=== PATIENT | female | born 1965 | race Caucasian/White ===

== ENCOUNTER 2024-11-04 07:37 | Inpatient (IN) ==
--- NOTE | 2024-11-04 08:07 | Emergency Department Note ---
Impression & Plan Alcohol abuse, Recurrent falls, Rhabdomyolysis, Hyponatremia, Hypokalemia, Hypophosphatemia, Esophagitis ED Provider Note NAME: DEVAN HANNAH AGE: 59 SEX: F : 1965 ARRIVES VIA: Ambulance INFORMANT: Patient ED PROVIDER(S): Kali Recio MD CHIEF COMPLAINT: Recurrent falls, alcoholism PLAN: Disposition: Admit MEDICAL DECISION MAKING: The patient is a 59-year-old woman with a past medical history of alcohol abuse/dependence, hypothyroidism, anxiety/depression who presents to emergency department via EMS for evaluation of recurrent falls and generalized weakness with symptoms of nausea and vomiting over the past week. The patient reports she fell last night and was able to get herself up off the ground and waited to the morning to see if her mother could take her to the hospital but given that this was not available she contacted EMS. Patient admits to having recurrent falls recently. She reports she noticed bruising around her left eye yesterday morning but does not recall exactly what happened. She is not on anticoagulation. She does admit to drinking alcohol daily and reports that it is approximately 5 beers a day. She denies any recent fevers, chills, cough, congestion. She denies diarrhea. She denies urinary symptoms. On evaluation patient no acute distress, afebrile with heart in the 100s and blood pressure 150s/90s and vital signs otherwise stable. She appears clinically dry. She exhibits no focal neurologic deficits. There is no overt symptoms of withdrawal/no tremulousness. She has bruising/ecchymosis diffusely with left periorbital contusion/hematoma without ocular involvement. She has extraocular muscles intact without difficulty. Pupils are equal, round and reactive to light. Ecchymosis is present of bilateral upper and lower legs as well as lower back and thoracic region. There is no midline CTL spine tenderness to palpation or step-offs. She moves all extremities equally without discomfort or difficulty. EKG without overt acute ischemia. CXR negative for acute cardiopulmonary process per my personal preliminary review/interpretation. WBC 11.6 K with neutrophilia but no left shift. H/H 11.7/32.3 decreased from March 2024. Platelets 129K, slightly decreased from prior range. Chemistry without metabolic acidosis. Sodium is 121 with normal glucose likely related to patient's alcoholism and poor solute intake and increased free water intake. Phosphorus 1.7 and potassium 3.3. LFTs are elevated from prior with total bili 1.8, direct bilirubin 0.5 and AST and ALT 241 and 160, respectively. Alk phos is 201. CPK is 4500. High-sensitivity troponin 9.8, within normal limits. Lipase is not significantly elevated. UA with 4+ bacteria however no WBCs or nitrites. Medical alcohol was 218. Respiratory BioFire was negative. CT of the head, face, C-spine, chest and abdomen/pelvis were obtained. No acute fractures are identified. Age indeterminant right TP fracture of L2 is noted however likely chronic given no point tenderness. Distal esophageal wall thickening is suggestive of esophagitis Treatment was initiated with IV hydration with normal saline and IV thiamine. Patient agrees with plan for admission for further management. Case was discussed with Mell SONG with Dr. Arriaga [facility], who will evaluate the patient for admission. Further management per admitting team. Triage Nursing notes reviewed and agree them. Prior/external medical records reviewed Vital Signs: reviewed Differential diagnosis: Infection, dehydration, metabolic abnormality, hypo/hyperglycemia, electrolyte disturbance, anemia, hypoxia, cardiac sources, intracerebral event, toxicologic, neurologic, as well as other pathologies. ER treatment provided: See below. Diagnostics interpreted by me: ECG: Normal sinus rhythm, 95 bpm, LVH, no overt ST elevation or depression, QTc 492, QRS 82. Cardiac Monitoring: An order for continuous cardiac monitoring was placed and demonstrated normal sinus rhythm, 95 bpm, no ectopy. Laboratory studies: See below Imaging studies: See below Consultation(s): Case was discussed with Mell SONG with Dr. Arriaga, [facility], who will evaluate the patient for admission. HPI: The patient is a 59-year-old woman with a past medical history of alcohol abuse/dependence, hypothyroidism, anxiety/depression who presents to emergency department via EMS for evaluation of recurrent falls and generalized weakness with symptoms of nausea and vomiting over the past week. The patient reports she fell last night and was able to get herself up off the ground and waited to the morning to see if her mother could take her to the hospital but given that this was not available she contacted EMS. Patient admits to having recurrent falls recently. She reports she noticed bruising around her left eye yesterday morning but does not recall exactly what happened. She is not on anticoagulation. She does admit to drinking alcohol daily and reports that it is approximately 5 beers a day. She denies any recent fevers, chills, cough, congestion. She denies diarrhea. She denies urinary symptoms. ROS: See above HPI for pertinent positives & negatives. A total of 10 systems reviewed and were otherwise negative. VITALS:See Below PHYSICAL EXAMINATION: GENERAL: Awake, alert, in no distress HENT: Normocephalic, left periorbital contusion/hematoma without ocular involvement. Oropharynx unremarkable. EYES: Normal conjunctiva. Sclera non-icteric. EOMI. No nystamgus. PEARRL. NECK: Supple. No nuchal rigidity. FROM. No JVD. RESPIRATORY: Clear to auscultation. CARDIAC: Tachycardic rate, normal rhythm. Extremities warm and well perfused. Pulses equal. ABDOMEN: Soft, non-distended. No tenderness to palpation. No rebound or guarding. No masses. MUSCULOSKELETAL: Chest examination reveals no tenderness. The back is symmetrical on inspection without obvious abnormality. No CVA tenderness to palpation. Ecchymosis is present of bilateral upper and lower legs as well as lower back and thoracic region. There is no midline CTL spine tenderness to palpation or step-offs. She moves all extremities equally without discomfort or difficulty. No joint edema. LOWER EXTREMITIES: Calves are equal size bilaterally and non-tender. No edema. NEURO: No overt symptoms of withdrawal/no tremulousness. CNII-XII grossly intact. 5/5 strength and SILT x 4 extremities. Intact finger to nose. SKIN: No jaundice noted. Bruising/ecchymosis diffusely ED COURSE: Critical Care: I have personally spent greater than 35 minutes of critical care time in the direct management of this patient. This includes bedside care, interpretation of diagnostic studies, and testing, discussion with consultants, patient, and family members, and other required patient management activities. This 35 minutes is in excess of all separately billable procedures. Kali Recio MD Past Med/Surg History Problem List (Updated 11/04/24 @ 21:33 by Kali Recio MD) Chest pain Bruising Lymph node enlargement Esophagitis (Acute) Hypophosphatemia (Acute) Hypokalemia (Acute) Hyponatremia (Acute) Rhabdomyolysis (Acute) Recurrent falls (Acute) Alcohol abuse (Acute) Fall (Acute) Medical History Hypothyroidism HTN (hypertension) Endometrial cancer Depression Anxiety Surgical History History of cholecystectomy History of hysterectomy Social History Smoking Status: Never smoker Tobacco Type: Cigarettes Hx Alcohol Use: Yes Preferred Language: Czech marital status: Feels Safe at Home: Yes Allergies Allergies Allergy/AdvReac Type Severity Reaction Status Date / Time No Known Allergies Allergy Verified 11/04/24 11:21 Home Meds Home Medications Medication Instructions Recorded Confirmed bupropion HCl 300 mg 24 hr tablet, 300 mg PO QAM 11/04/24 11/04/24 extended release gabapentin 300 mg capsule 300 mg PO HS 11/04/24 11/04/24 hydroxyzine pamoate 50 mg capsule 50 mg PO TID PRN Anxiety 11/04/24 11/04/24 lamotrigine 25 mg tablet 50 mg PO DAILY 11/04/24 11/04/24 levothyroxine 125 mcg tablet 125 mcg PO DAILY 11/04/24 11/04/24 lisinopril 5 mg tablet 5 mg PO DAILY 11/04/24 11/04/24 propranolol 10 mg tablet 10 mg PO DAILY PRN general anxiety 11/04/24 11/04/24 disorder venlafaxine 150 mg 150 mg PO DAILY 11/04/24 11/04/24 capsule,extended release 24 hr venlafaxine 75 mg capsule,extended 75 mg PO DAILY 11/04/24 11/04/24 release 24 hr Previous Rx's Medication Instructions Recorded trazodone 50 mg tablet 50 mg PO DAILY PRN insomnia #7 tabs 04/02/24 Results & Data (ED) Vital Signs Vital Signs - 24 hr 11/04/24 07:43 11/04/24 07:43 11/04/24 07:56 Temperature 36.7 C Temperature Source Oral Pulse Rate 93 H 95 H Pulse Rate [Apical] Respiratory Rate 24 Respiratory Effort / Characteristics Non-Labored Spontaneous Respiratory Depth Normal Blood Pressure 158/91 H Blood Pressure [Left Arm] Blood Pressure Mean 113 Blood Pressure Mean [Left Arm] Blood Pressure Position Semi-fowlers Blood Pressure Position [Left Arm] Pulse Oximetry 99 99 Oxygen Delivery Method Room Air Room Air Sepsis Recent Fever Within 48 Hours No Sepsis New/Unexplained Change in Mental Status N/A Sepsis Action Taken by Nursing No Action Required 11/04/24 08:09 11/04/24 09:22 Temperature Temperature Source Pulse Rate 97 H Pulse Rate [Apical] 97 H Respiratory Rate 16 Respiratory Effort / Characteristics Respiratory Depth Blood Pressure Blood Pressure [Left Arm] 120/72 Blood Pressure Mean Blood Pressure Mean [Left Arm] 88 Blood Pressure Position Blood Pressure Position [Left Arm] Semi-fowlers Pulse Oximetry 98 100 Oxygen Delivery Method Room Air Room Air Sepsis Recent Fever Within 48 Hours Sepsis New/Unexplained Change in Mental Status Sepsis Action Taken by Nursing Laboratory Data Attestation: I reviewed the patient's lab results. 11/04/24 07:56 11/04/24 17:47 Lab Results 11/04/24 11/04/24 11/04/24 Range/Units 07:56 08:04 08:15 WBC 11.60 H (4.8-10.8) K/ul RBC 3.75 L (4.20-5.40) M/uL Hgb 11.7 L (12.0-16.0) g/dl POC Hgb 12.2 (12.0-16.0) g/dl Hct 32.3 L (37.0-47.0) % POC Hct 36 L (37-47) % MCV 86.1 (80.0-100.0) fL MCH 31.2 (25.0-34.0) pg MCHC 36.2 H (32.0-36.0) g/dL RDW Std Deviation 38.5 (36.4-46.3) fL RDW Coeff of Deepak 12.4 (11.5-14.5) % Plt Count 129 L (130-400) K/uL MPV 10.7 (9.4-12.4) fL Immature Gran % (Auto) 1.0 % Neut % (Auto) 83.2 % Lymph % (Auto) 4.7 % [place] % (Auto) 11.0 % Eos % (Auto) 0.0 % Baso % (Auto) 0.1 % Neut # (Auto) 9.65 H (1.40-6.50) K/uL Lymph # (Auto) 0.54 L (1.20-3.40) K/uL [place] # (Auto) 1.28 H (0.11-0.59) K/uL Eos # (Auto) 0.00 (0.00-0.50) K/uL Baso # (Auto) 0.01 (0.00-0.20) K/uL Immature Gran # (Auto) 0.12 (0.01-0.20) K/uL PT 10.0 (9.0-12.0) Seconds INR 0.9 (0.9-1.1) APTT 28 (21-31) Seconds PTT Ratio 1.0 POC Sodium 119 L* (135-144) mmol/L Sodium 121 L (136-145) mmol/L POC Potassium 3.3 (3.3-5.0) mmol/L Potassium 3.3 L (3.5-5.1) mmol/L POC Chloride 84 L (101-112) mmol/L Chloride 83 L (98-107) mmol/L Carbon Dioxide 25 (21-32) mmol/L POC Total CO2 20 L (24-31) mmol/L Anion Gap 13 H (3-11) POC Anion Gap 19.0 (16-25) mmol/L POC BUN 10 (7-18) mg/dl BUN 11 (6-23) mg/dl Creatinine 0.63 (0.6-1.2) mg/dl POC Creatinine 1.1 (0.6-1.3) mg/dl Est Cr Clr Drug Dosing 97.6 ml/min eGFR 100.86 BUN/Creatinine Ratio 17.5 (10-20) Glucose 99 (70-99(Fasting)) mg/dl POC Glucose (other) 103 H (70-99) mg/dl Osmolality 306 H (280-300) mOsm/kg Calcium 9.2 (8.6-10.3) mg/dl POC Ioniz Calcium Laurent 1.01 L (1.12-1.32) mmol/l Phosphorus 1.7 L (2.5-4.9) mg/dl Magnesium 2.5 H (1.7-2.4) mg/dl Total Bilirubin 1.8 H (0.2-1.0) mg/dl Direct Bilirubin 0.5 H (0-0.2) mg/dl AST 241 H (13-39) U/L ALT 168 H (7-52) U/L Alkaline Phosphatase 201 H (34-104) U/L Total Creatine Kinase 4570 H (26-192) U/L Troponin I High Sens 9.8 (0-14) pg/ml Total Protein 7.9 (6.0-8.3) gm/dl Albumin 4.4 (3.4-5.0) gm/dl Globulin 3.5 (2.5-4.0) gm/dl Albumin/Globulin Ratio 1.3 (0.9-2) Lipase 96 H (11-82) U/L Urine Color Urine Appearance (Clear) Urine pH (4.5-7.5) Ur Specific [place] (1.000-1.030) Urine Protein (Negative) Urine Glucose (UA) (Negative) Urine Ketones (Negative) Urine Blood (Negative) Urine Nitrite (Negative) Urine Bilirubin (Negative) Urine Urobilinogen (Negative) Ur Leukocyte Esterase (Negative) Urine WBC (Auto) (0-5) /hpf Urine RBC (Auto) (0-2) /hpf U Hyaline Cast (Auto) (0-2) /lpf U Epithel Cells (Auto) (0-2) /hpf Urine Bacteria (Auto) (None Seen) Urine Osmolality (500-800) mOsm/kg Ur Random Sodium mmol/L Urine Opiates Screen (Neg) Ur Methadone, Qual (Neg) Urine Fentanyl Screen (Neg) Urine Barbiturates (Neg) Ur Phencyclidine (PCP) (Neg) U Amphetamin/Meth Scrn (Neg) MDMA (Ecstasy) Screen (Neg) U Benzodiazepines Scrn (Neg) Ur Cocaine Metabolite (Neg) U Marijuana (THC) Screen (Neg) Ethyl Alcohol mg/dL 218.7 H (<10.0) mg/dl Adenovirus (PCR) Not Detected (NotDetected) B. pertussis DNA (PCR) Not Detected (NotDetected) B.parapertussis DNA PCR Not Detected (NotDetected) C. pneumoniae DNA (PCR) Not Detected (NotDetected) Coronavirus OC43 (PCR) Not Detected (NotDetected) Coronavirus HKU1 (PCR) Not Detected (NotDetected) Coronavirus 229E (PCR) Not Detected (NotDetected) SARS-CoV-2 (PCR) Not Detected (NotDetected) Coronavirus NL63 (PCR) Not Detected (NotDetected) Human Metapneumovir PCR Not Detected (NotDetected) Influenza Type A (PCR) Not Detected (NotDetected) Influenza Type B (PCR) Not Detected (NotDetected) M. pneumoniae (PCR) Not Detected (NotDetected) Parainfluenza 1 (PCR) Not Detected (NotDetected) Parainfluenza 2 (PCR) Not Detected (NotDetected) Parainfluenza 3 (PCR) Not Detected (NotDetected) Parainfluenza 4 (PCR) Not Detected (NotDetected) RSV (PCR) Not Detected (NotDetected) Entero/Rhino (PCR) Not Detected (NotDetected) 11/04/24 Range/Units 09:19 WBC (4.8-10.8) K/ul RBC (4.20-5.40) M/uL Hgb (12.0-16.0) g/dl POC Hgb (12.0-16.0) g/dl Hct (37.0-47.0) % POC Hct (37-47) % MCV (80.0-100.0) fL MCH (25.0-34.0) pg MCHC (32.0-36.0) g/dL RDW Std Deviation (36.4-46.3) fL RDW Coeff of Deepak (11.5-14.5) % Plt Count (130-400) K/uL MPV (9.4-12.4) fL Immature Gran % (Auto) % Neut % (Auto) % Lymph % (Auto) % [place] % (Auto) % Eos % (Auto) % Baso % (Auto) % Neut # (Auto) (1.40-6.50) K/uL Lymph # (Auto) (1.20-3.40) K/uL [place] # (Auto) (0.11-0.59) K/uL Eos # (Auto) (0.00-0.50) K/uL Baso # (Auto) (0.00-0.20) K/uL Immature Gran # (Auto) (0.01-0.20) K/uL PT (9.0-12.0) Seconds INR (0.9-1.1) APTT (21-31) Seconds PTT Ratio POC Sodium (135-144) mmol/L Sodium (136-145) mmol/L POC Potassium (3.3-5.0) mmol/L Potassium (3.5-5.1) mmol/L POC Chloride (101-112) mmol/L Chloride (98-107) mmol/L Carbon Dioxide (21-32) mmol/L POC Total CO2 (24-31) mmol/L Anion Gap (3-11) POC Anion Gap (16-25) mmol/L POC BUN (7-18) mg/dl BUN (6-23) mg/dl Creatinine (0.6-1.2) mg/dl POC Creatinine (0.6-1.3) mg/dl Est Cr Clr Drug Dosing ml/min eGFR BUN/Creatinine Ratio (10-20) Glucose (70-99(Fasting)) mg/dl POC Glucose (other) (70-99) mg/dl Osmolality (280-300) mOsm/kg Calcium (8.6-10.3) mg/dl POC Ioniz Calcium Laurent (1.12-1.32) mmol/l Phosphorus (2.5-4.9) mg/dl Magnesium (1.7-2.4) mg/dl Total Bilirubin (0.2-1.0) mg/dl Direct Bilirubin (0-0.2) mg/dl AST (13-39) U/L ALT (7-52) U/L Alkaline Phosphatase (34-104) U/L Total Creatine Kinase (26-192) U/L Troponin I High Sens (0-14) pg/ml Total Protein (6.0-8.3) gm/dl Albumin (3.4-5.0) gm/dl Globulin (2.5-4.0) gm/dl Albumin/Globulin Ratio (0.9-2) Lipase (11-82) U/L Urine Color Yellow Urine Appearance Clear (Clear) Urine pH 6.5 (4.5-7.5) Ur Specific [place] 1.006 (1.000-1.030) Urine Protein Trace H (Negative) Urine Glucose (UA) Negative (Negative) Urine Ketones 1+ H (Negative) Urine Blood 2+ H (Negative) Urine Nitrite Negative (Negative) Urine Bilirubin Negative (Negative) Urine Urobilinogen Negative (Negative) Ur Leukocyte Esterase Trace H (Negative) Urine WBC (Auto) 0-5 (0-5) /hpf Urine RBC (Auto) 0-2 (0-2) /hpf U Hyaline Cast (Auto) 0-2 (0-2) /lpf U Epithel Cells (Auto) 0-2 (0-2) /hpf Urine Bacteria (Auto) 4+ H (None Seen) Urine Osmolality 176 L (500-800) mOsm/kg Ur Random Sodium < 10 mmol/L Urine Opiates Screen Neg (Neg) Ur Methadone, Qual Neg (Neg) Urine Fentanyl Screen Neg (Neg) Urine Barbiturates Neg (Neg) Ur Phencyclidine (PCP) Neg (Neg) U Amphetamin/Meth Scrn Neg (Neg) MDMA (Ecstasy) Screen Neg (Neg) U Benzodiazepines Scrn Neg (Neg) Ur Cocaine Metabolite Neg (Neg) U Marijuana (THC) Screen Neg (Neg) Ethyl Alcohol mg/dL (<10.0) mg/dl Adenovirus (PCR) (NotDetected) B. pertussis DNA (PCR) (NotDetected) B.parapertussis DNA PCR (NotDetected) C. pneumoniae DNA (PCR) (NotDetected) Coronavirus OC43 (PCR) (NotDetected) Coronavirus HKU1 (PCR) (NotDetected) Coronavirus 229E (PCR) (NotDetected) SARS-CoV-2 (PCR) (NotDetected) Coronavirus NL63 (PCR) (NotDetected) Human Metapneumovir PCR (NotDetected) Influenza Type A (PCR) (NotDetected) Influenza Type B (PCR) (NotDetected) M. pneumoniae (PCR) (NotDetected) Parainfluenza 1 (PCR) (NotDetected) Parainfluenza 2 (PCR) (NotDetected) Parainfluenza 3 (PCR) (NotDetected) Parainfluenza 4 (PCR) (NotDetected) RSV (PCR) (NotDetected) Entero/Rhino (PCR) (NotDetected) Administered Medications Folic Acid (Folic Acid 1 Mg Tab) 1 mg PO QAM SARAH Stop: 12/04/24 11:44 Last Admin: 11/04/24 13:06 Dose: 1 mg Documented By: MMF Gabapentin (Gabapentin 600 Mg Tab) 600 mg PO Q6H SARAH Stop: 11/05/24 00:01 Last Admin: 11/04/24 17:20 Dose: 600 mg Documented By: SESAR Sodium Chloride (1/2 Nss) 1,000 mls @ 80 mls/hr IV .[id number] SARAH Stop: 11/05/24 13:29 Last Admin: 11/04/24 13:07 Dose: 80 mls/hr Documented By: IVAN Potassium Phosphate 30 mmol/ (Sodium Chloride) 510 mls @ 88 mls/hr IV ONE ONE Stop: 11/05/24 01:47 Last Admin: 11/04/24 20:15 Dose: 88 mls/hr Documented By: SESAR Multivitamins (Multivitamin Tab) 1 tab PO QAM SARAH Stop: 12/04/24 11:44 Last Admin: 11/04/24 13:06 Dose: 1 tab Documented By: MMF Discontinued Medications Gabapentin (Gabapentin 600 Mg Tab) 1,200 mg PO NOW ONE Stop: 11/04/24 11:17 Last Admin: 11/04/24 11:27 Dose: 1,200 mg Documented By: IVAN Thiamine HCl 500 mg/ Sodium (Chloride) 55 mls @ 210 mls/hr IV NOW STA Stop: 11/04/24 08:17 Last Infusion: 11/04/24 09:40 Dose: Infused Documented By: Admin: 11/04/24 09:13 Dose: 210 mls/hr Documented By: MMF Sodium Chloride (Nss) 1,000 mls @ 999 mls/hr IV .Q1H1M ONE Stop: 11/04/24 09:02 Last Infusion: 11/04/24 11:37 Dose: Infused Documented By: Admin: 11/04/24 08:29 Dose: 999 mls/hr Documented By: MMF Potassium Phosphate 15 mmol/ (Sodium Chloride) 255 mls @ 100 mls/hr IV ONE ONE Stop: 11/04/24 13:32 Last Infusion: 11/04/24 14:32 Dose: Infused Documented By: Admin: 11/04/24 11:27 Dose: 100 mls/hr Documented By: MMF Sodium Chloride (Nss) 500 mls @ 125 mls/hr IV .Q4H SARAH Stop: 11/04/24 15:44 Last Admin: 11/04/24 13:20 Dose: Not Given Documented By: IVAN Pantoprazole Sodium (Protonix) 40 mg in 10 mls @ 5 mls/min IV NOW STA Stop: 11/04/24 11:50 Last Admin: 11/04/24 13:06 Dose: 5 mls/min Documented By: IVAN Ioversol (Optiray 320 100ml) 94 ml IV ONCE ONE Stop: 11/04/24 08:59 Last Admin: 11/04/24 08:59 Dose: 94 ml Documented By: MIYA Lorazepam (Lorazepam 2 Mg/1 Ml Vial) 1 mg IV NOW STA Stop: 11/04/24 11:08 Last Admin: 11/04/24 11:27 Dose: 1 mg Documented By: IVAN Miscellaneous Information (Patient's Allergy Info Needs Entered) 1 each N/A NOW STA Stop: 11/04/24 10:30 Last Admin: 11/04/24 11:37 Dose: Not Given Documented By: IVAN Potassium Chloride (Potassium Chloride 20 Meq/15 Ml Udc) 40 meq PO NOW STA Stop: 11/04/24 11:32 Last Admin: 11/04/24 13:06 Dose: 40 meq Documented By: IVAN Imaging Data Radiologist's Impression: Chest X-Ray 11/04/24 07:58 XR chest 1V portable CLINICAL HISTORY: Trauma COMPARISON STUDY: Chest CT performed earlier today. FINDINGS: Lung volumes are normal. Lungs are clear. There is no pneumothorax or pleural effusion. Cardiac size is normal. Mediastinal contours are normal. There is no evidence for pulmonary edema. IMPRESSION: No acute cardiopulmonary findings. ACT 112: Negative or not required by law. Electronically signed by: Cristi Mora M.D. 11/04/2024 9:41 AM Abdomen/Pelvis CT 11/04/24 08:01 CT OF THE ABDOMEN AND PELVIS WITH CONTRAST CLINICAL HISTORY: recurrent falls, bruising, etoh COMPARISON STUDY: None. TECHNIQUE: Following IV administration of 94 mL of Optiray, axial images of the abdomen and pelvis were obtained from the lung bases to the proximal femurs. Images were reviewed in the axial, sagittal, and coronal planes. IV contrast was administered without complication. Automated exposure control was utilized for the study. A dose lowering technique was utilized adhering to the principles of ALARA. FINDINGS: There is no evidence for traumatic injury to the liver, spleen, adrenal glands, kidneys or pancreas. Left upper pole renal scarring is present. There is hepatic steatosis. Circumferential wall thickening of the distal esophagus is present. Caliber and wall thickness of small and large bowel are normal. The appendix is normal. Colonic diverticulosis is present. No evidence for acute diverticulitis. Bladder wall thickening is noted with mucosal hyperemia. Old bilateral pubic ring fractures are present. There is a right SI joint fusion. A minimally displaced fracture of the right transverse process of L2 is age indeterminate. Additional right-sided transverse process fractures are chronic. There are old left-sided rib fractures. There are suspected small contusions of the subcutaneous tissues of the left flank. No active extravasation is identified. IMPRESSION: 1. No evidence for acute medical injury to the solid abdominal viscera. 2. Small subcutaneous contusions within the left flank. 3. Minimally displaced fracture of the right transverse process of L2. Although age indeterminate, this is probably chronic. 4. Hepatic steatosis. 5. Distal esophageal wall thickening with minimal adjacent stranding. This favors esophagitis. ACT 112: Negative or not required by law. Electronically signed by: Cristi Mora M.D. 11/04/2024 9:[address] 11/04/24 08:01 CT cervical spine wo con CT DOSE: 3398.81 mGy.cm CLINICAL HISTORY: 59 years-old Female with recurrent falls, bruising, etoh. Acute head and neck injury status post fall COMPARISON: CT maxillofacial same day and also 12/14/2015 TECHNIQUE: Multiple axial CT images of the cervical spine were obtained without contrast. A dose lowering technique was utilized adhering to the principles of ALARA. FINDINGS: Multilevel degenerative changes including moderate disc space narrowing and spondylotic spurring C4-C5, C5-C6 and C6-C7. Multilevel facet arthrosis. Severe facet arthrosis at C7-T1. No acute fracture, subluxation or endplate erosion identified. Multilevel neural foraminal narrowing is suboptimally assessed by CT technique. Left facial contusions. CT maxillofacial dictated separately. 1.2 x 1.5 cm left submandibular lymph node on image 232 series 10. This previously measured 1.3 x 0.8 cm. The visualized lung apices appear clear. IMPRESSION: 1. No acute cervical spine fracture or subluxation. 2. Left facial contusions. CT maxillofacial dictated separately. 3. Nonspecific 1.2 x 1.5 cm left submandibular lymph node has increased in size from the comparison 2016 study. Attention on follow-up recommended. ACT 112: Negative or not required by law. The above report was generated using voice recognition software. It may contain grammatical, syntax or spelling errors. Electronically signed by: Erasmo Martínez M.D. 11/04/2024 9:[address] 11/04/24 08:01 CT OF THE CHEST WITH IV CONTRAST CLINICAL HISTORY: recurrent falls, bruising, etoh COMPARISON STUDY: No previous studies for comparison. TECHNIQUE: Following IV administration of 94 mL of Optiray, helical axial images of the chest were obtained. Sagittal and coronal reconstructions were viewed as well as maximal intensity projections on an independent 3-D workstation. Automated exposure control was utilized for the study. A dose lowering technique was utilized adhering to the principles of ALARA. FINDINGS: There is no evidence for traumatic injury to the thoracic aorta. There is mild dilatation of the ascending aorta measuring up to 3.9 cm. Size of the heart is normal. There is moderate circumferential wall thickening of the mid to distal esophagus with minimal adjacent stranding. There is no pneumomediastinum. No pneumothorax or pleural effusion is present. No pulmonary contusion. No acute rib or thoracic spine fractures are present. Multiple old left-sided rib fractures are noted. Small contusions within the lower neck and upper chest are present. There is hepatic steatosis. IMPRESSION: 1. No evidence for traumatic injury to the thoracic aorta. No pneumothorax. 2. No acute fractures within the thorax. 3. Small contusions within the lower neck and upper chest. 4. Distal esophageal wall thickening with minimal adjacent stranding. This favors esophagitis. 5. Hepatic steatosis. ACT 112: Negative or not required by law. Electronically signed by: Cristi Mora M.D. 11/04/2024 9:[address] 11/04/24 08:[address] WITHOUT CONTRAST CLINICAL HISTORY: recurrent falls, bruising, etoh COMPARISON STUDY: Facial bone CT December 14, 2015. TECHNIQUE: A maxillofacial CT was performed without IV contrast. Coronal and sagittal reformats were viewed. Automated exposure control was utilized for the study. A dose lowering technique was utilized adhering to the principles of ALARA. FINDINGS: A left periorbital contusion is present. The left globe is intact. There is no retrobulbar hematoma. Present. Alignment of the temporomandibular joints is anatomic. There is no skull base fracture. Old right nasal bone fracture is again noted. IMPRESSION: 1. No acute facial fracture. 2. Left periorbital contusion. Left globe intact. No retrobulbar hematoma. ACT 112: Negative or not required by law. Electronically signed by: Cristi Mora M.D. 11/04/2024 9:[address] 11/04/24 08:01 CT head/brain wo con CLINICAL HISTORY: 59 years-old Female with recurrent falls, bruising, etoh. Acute head trauma status post fall TECHNIQUE: Multiple axial CT images of the head were obtained without contrast. A dose lowering technique was utilized adhering to the principles of ALARA. COMPARISON: CT cervical maxillofacial studies of same day, head CT 12/14/2015 FINDINGS: No acute intracranial hemorrhage, midline shift, intracranial mass, hydrocephalus, territorial ischemia or abnormal extra-axial collection. Low- lying cerebellar tonsils. The calvarium is intact. 4 cm left lateral parietal scalp contusion. Additional left periorbital and facial contusions are partially imaged. The paranasal sinuses, mastoid air cells, and middle ear cavities are clear. IMPRESSION: 1. No acute intracranial abnormality or calvarial fracture. 2. Left scalp and facial contusions. ACT 112: Negative or not required by law. The above report was generated using voice recognition software. It may contain grammatical, syntax or spelling errors. Electronically signed by: Erasmo Martínez M.D. 11/04/2024 9:32 AM Discharge Plan Visit Data Chief Complaint: Chest Pain ED Provider: Kali Recio Discharge Problem: Alcohol abuse, Recurrent falls, Rhabdomyolysis, Hyponatremia, Hypokalemia, Hypophosphatemia, Esophagitis Patient Disposition: Admitted As Inpatient Discharge Instructions Interventions: ED Discharge Assessment Last Done: 11/04/24 11:17 Discharge Problem: Rhabdomyolysis Qualifiers: Rhabdomyolysis type: traumatic Encounter type: initial encounter Qualified Code(s): T79.6XXA - Traumatic ischemia of muscle, initial encounter
[2024-11-04 08:13] LABS: Basophils # (auto) 0.01 K/uL (0.00-0.20); Basophils % (auto) 0.1 %; Hematocrit (blood only) 32.3 % (37.0-47.0); Hemoglobin 11.7 g/dl (12.0-16.0); Immature Granulocytes # (auto) 0.12 K/uL (0.01-0.20); Lymphocytes # (auto) 0.54 K/uL (1.20-3.40); Lymphocytes % (auto) 4.7 %; Mean Corpuscular Hemoglobin 31.2 pg (25.0-34.0); Mean Corpuscular Hgb Conc 36.2 g/dL (32.0-36.0); Mean Corpuscular Volume 86.1 fL (80.0-100.0); Mean Platelet Volume 10.7 fL (9.4-12.4); Monocytes # (auto) 1.28 K/uL (0.11-0.59); Neutrophils # (auto) 9.65 K/uL (1.40-6.50); Neutrophils % (auto) 83.2 %; Platelet Count 129 K/uL (130-400); RDW Coefficient of Variation 12.4 % (11.5-14.5); RDW Standard Deviation 38.5 fL (36.4-46.3); Red Blood Count 3.75 M/uL (4.20-5.40)
[2024-11-04 08:29] LABS: iSTAT Creatinine 1.1 mg/dl (0.6-1.3); iSTAT Hemoglobin 12.2 g/dl (12.0-16.0); iSTAT Ionized Calcium 1.01 mmol/l (1.12-1.32); iSTAT Potassium 3.3 mmol/L (3.3-5.0)
[2024-11-04] MEDS: SODIUM CHLORIDE 0.9% 1,000 ML IV ONE (08:29)
[2024-11-04 08:31] LABS: BUN Creatinine Ratio 17.5 (10-20); Calcium 9.2 mg/dl (8.6-10.3); Creatinine Clr Calc Pharmacy 97.6 ml/min; Potassium 3.3 mmol/L (3.5-5.1)
[2024-11-04 08:36] LABS: Troponin I High Sensitivity 9.8 pg/ml (0-14)
[2024-11-04 08:57] LABS: Albumin Globulin Ratio 1.3 (0.9-2); Albumin Level 4.4 gm/dl (3.4-5.0); Bilirubin Direct 0.5 mg/dl (0-0.2); Bilirubin,Total 1.8 mg/dl (0.2-1.0); Globulin 3.5 gm/dl (2.5-4.0); Magnesium 2.5 mg/dl (1.7-2.4); Phosphorus 1.7 mg/dl (2.5-4.9); Total Protein 7.9 gm/dl (6.0-8.3)
[2024-11-04] MEDS: OPTIRAY 320 100ml IV ONE (08:59)
[2024-11-04 09:06] LABS: INR 0.9 (0.9-1.1); Partial Thromboplastin Time 28 Seconds (21-31)
--- OUTSIDE RECORDS SUMMARY | 2024-11-04 09:10 | External Medical Summary | Summary of Care ---
Author Name Unknown Organization [facility] Address [address] [place] [address] Phone [phone] Care Team Providers Care Applied Anthropologist Name Role Phone Bonita Mares MD Primary Care Provider [phone] Reason for Visit * Reason Onset Date Comments Advice 08/11/2024 Encounter Details Date Type Department Care Team ([facility] st Contact Info) Description 08/11/2024 Telephone General Internal Medicine [facility] [place] [address] [place] [address] Bonita Mares MD [address] [place] [address] Advice Allergies Active Allergy Reactions Criticality Noted Date Comments Aspartame Medium 05/31/2011 Mental confusion Flavoring Agent Medium 03/15/2020 Mental confusion documented as of this encounter (statuses as of 08/11/2024) Medications Cholecalciferol (VITAMIN D3) 50 MCG (1999) CapsuleIndicatio ns:Low serum vitamin D Take 1 Cap by mouth daily. 90 Cap 1 9 Active Fish Oil 1000 MG Oral Capsule Take 1 Capsule by mouth in the morning. Active buPROPion HCl ER (XL) 300 MG Oral Tablet Extended Release 24 Hour (Wellbutrin XL)Indications:M oderate episode of recurrent major depressive disorder (HCC) Take 1 Tablet by mouth in the morning. 90 Tablet 2 3 Active traZODone HCl 50 MG Oral Tablet (Desyrel)Indicat ions:Insomnia, unspecified type TAKE 1 TABLET BY MOUTH AT BEDTIME NEEDED FOR SLEEP 90 Tablet 1 3 Active Venlafaxine HCl ER 150 MG Oral Capsule Extended Release 24 Hour (Effexor XR)Indications:D epression with anxiety TAKE 1 CAPSULE BY MOUTH ONCE DAILY ALONG WITH 75MG (DO NOT CUT, CRUSH OR CHEW) 90 Capsule 1 4 Active Venlafaxine HCl ER 75 MG Oral Capsule Extended Release 24 Hour (Effexor XR)Indications:M ild episode of recurrent major depressive disorder (HCC) TAKE 1 CAPSULE BY MOUTH ONCE DAILY ALONG WITH 150MG (DO CUT, CRUSH OR CHEW) 90 Capsule 1 4 Active Melatonin 1 MG Oral Tablet Take 1 Tablet by mouth at bedtime. Active busPIRone HCl 5 MG Oral Tablet (Buspar)Indicati ons:ZOILA (generalized anxiety disorder) Take 1 Tablet by mouth 2 times a day as needed for Pain. 60 Tablet 1 4 Active Benefiber Oral PowderIndication s:Constipation, unspecified constipation type Take 1 Tbsf in a glass of water daily 4 Active Levothyroxine Sodium 112 MCG Oral Tablet (Levoxyl) Take 1 Tablet by mouth in the morning. (at least 30 min prior to breakfast or other meds)-per CVIM Maxin. 90 Tablet 4 Active Lisinopril 5 MG Oral Tablet (Prinivil)Indica tions:HTN, goal below 140/90 Take 1 Tablet by mouth in the morning. 90 Tablet 4 Active Gabapentin 300 MG Oral Capsule (Neurontin) Take 1 Capsule by mouth at bedtime. 90 Capsule 4 Active Gabapentin 300 MG Oral Capsule (Neurontin) Take 1 Capsule by mouth at bedtime. 4 08/11/20 24 Discontin ued(Refil l) Lisinopril 5 MG Oral Tablet (Prinivil)Indica tions:HTN, goal below 140/90 Take 1 Tablet by mouth in the morning. 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 ZOILA (generalized anxiety disorder) 02/08/2024 Endometrial cancer 08/01/2023 Cancer Staging:Clinical stage from 09/24/2023:FIGO Stage IA(cT1a, cN0(sn), cM0) - Signed by Shreyas Martinez MD on 09/28/2023 Alcohol abuse 08/31/2022 BMI 32.0-32.9,adult 05/18/2021 Overview (08/01/2023): 33 Panic disorder 12/26/2016 Acquired hypothyroidism 09/27/2012 Mild episode of recurrent major depressive disor philipp HTN, goal below 140/90 documented as of this encounter (statuses as of 08/11/2024) Resolved Problems Problem Noted Date Diagnosed Date Resolved Date MEDICATION USE AGREEMENT 11/16/201602/2018 History of lower leg fracture 08/23/2016 05/09/2018 Closed fracture of ulna 08/23/201602/2018 Controlled substance agreement signed 08/07/2016 01/18/2018 History of closed fracture of nasal bones 06/07/2012 05/09/2018 Overview (06/06/2016): ICD-10 update of inactive term Fracture of orbital floor 06/07/2012 Overview (06/07/2012): Right sided - nondisplaced ADVANCE DIRECTIVE INFORMATION 10/18/2005 07/07/2024 Overview (11/21/2005): No, Advance Directive brochure given to patient on November 21, 2005. . documented as of this encounter (statuses as of 08/11/2024) Immunizations Name Administration Dates Next Due Seasonal Influenza, PF, 6 M & above, IM , (FluLaval or Fluzone) 05/22/2022,05/17/2020,07/17/2019,06/22 Seasonal Influenza, Quadriva lent, No Preserve, IM 08/23/2016 TDAP, Age 7 and older, IM (Adacel) 04/16/2016, Zoster Vaccine Recombinant (Shingrix) 01/21/2021,05/17/2020 07/19/2020 documented as of this encounter Social History Tobacco Use Types Packs/Day Years Used Date Smoking Tobacco: Former Cigarettes 0.5 1 0 09/03/1996 - 09/03/1997 Smokeless Tobacco: Former Alcohol Use Standard Drinks/Week Comments Yes 2 (1 standard drink = 0.6 oz pur e alcohol) PHQ-2 Answer Date Recorded PHQ Adult Total Score 14 03/13/2024 Hunger Vital Sign Answer Date Recorded Within the past 12 months, y ou worried that your food would run out before you got the money to buy more. Never true 03/18/20 24 Within the past 12 months, t he food you bought just didn't last and you didn't have money to get more. Never true 03/18/2024 Childcare Answer Date Recorded Do you feel overwhelmed with taking care of a child, family member or friend? No 03/18/2024 Does your family need help f inding childcare? (Household - for ages 0-17 years) Not on file 03/18/2024 Clothing Answer Date Recorded Have you been unable to get clothing when it was really needed? No 03/18/2024 Is your family able to get c lothes or diapers when needed? (Household - for ages 0-17 years) Not on file 03/18/2024 Personal Safety Answer Date Recorded Do you feel unsafe or have concerns for your saf ety? No 03/18/2024 Do you have concerns for you r family's safety? (Household - for ages 0-17 years) Not on file 03/18/2024 Utilities Answer Date Recorded Do you have trouble paying y our heating, water, or electric bill? No 03/18/2024 Is your family able to pay t he heat, water, or electric bill? (Household - for ages 0-17 years) Not on file 03/18/2024 Does your family have access to good internet? (Household - for ages 0-17 years) Not on file 03/18/2024 Employment Status Answer Date Recorded Are you unemployed or without regular income? No 03/18/2024 Does the household have a re gular source of income? (Household - for ages 0-17 years) Not on file 03/18/2024 Social Connections Answer Date Recorded How often do you feel lonely or isolated from those around you? Sometimes 03/18/2024 Financial Resource Strain Answer Date R ecorded Do you have any trouble payi ng for your medications, or do you think you might in the future? No 03/18/2024 Does your family have troubl e paying for medicine? (Household - for ages 0-17 years) Not on file 03/18/2024 Transportation Needs Answer Date Record ed Do you have trouble getting a ride to medical visits or work? (Adult - for ages 18 years and over) Not on file 03/18/2024 Does your family have a hard time getting a ride to doctors visits? (Household - for ages 0-17 years) Not on file 03/18/2024 Has lack of transportation k ept you from medical appointments, meetings, work, or from getting things needed for daily living? Check all that apply. No 03/18/2024 Do you (or your family) have trouble finding or paying for a ride (transportation)? (Household - for ages 0-17 years) Not on file 03/18/2024 Housing Stability Answer Date Recorded Do you currently live in a s helter or have no steady place to sleep at night? No 03/18/2024 Do you think you are at risk of becoming homeless? (Adult - for ages 18 years and over) Not on file 03/18/2024 Does your family worry about paying for your home or becoming homeless? (Household - for ages 0-17 years) Not on file 0 03/18/2024 Are you homeless or worried that you might be in the future? No 03/18/2024 Are you (or your family) lucrecia eless or worried that you might be in the future? (Household - for ages 0-17 years) Not on file Food Insecurity Answer Date Recorded Do you need food for this week? No 03/18/2024 Are you able to get enough f ood for your family? (Household - for ages 0-17 years) Not on file 03/18/2024 Does your family need food t his week? (Household - for ages 0-17 years) Not on file 03/18/2024 Do you always have enough fo od for your family? 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 Also informed that PCP would like her to have fasting labs completed while here for appt with Dr. Castaneda tomorrow. Patient verbalized understanding and will have labs completed. Was appreciative of my call. * Telephone Encounter - Bonita Mares MD - 08/11/2024 11:16 AM EST Done When she is here for appointment with Dr Castaneda please get fasting labs as ordered * Telephone Encounter - Sharon Magdaleno LPN - 08/11/2024 10:52 AM EST Patient call in stating that she is having withdrawal symptoms, she has not taken her Gabapentin and Lisinopril medication in about a week and a half. She stated that she missed her last appointment due to having Covid and then she lost her pet and was grieving over her loss and was just in a really depressed state. She stated that her symptoms include: Shakes, confusion and heart racing. She has an appointment scheduled with Dr. Castaneda tomorrow but she is asking if she can get an emergency dose of her medications for her to start feeling better. Spoke with Maryellen at the office, she will make Bonita Mares MD aware of the message. Please advise and call patient when addressed. * Telephone Encounter - Iván De Luna OSA - 08/11/2024 10:46 AM EST Reason for patient's call: Pt is having withdraw j[facility]ters [facility] Caller was transferred to Sharon at the nurse line. documented in this encounter Plan of Treatment Upcoming Encounters Date Type Department Care Team (Late st Contact Info) Description 08/12/2024 11:40 AM EST Office Visit Family Practice [facility] [address] [place] [address] Andrea Castaneda III, MD [address] [facility] [place] [address] 08/28/2024 3:30 PM EST Office Visit Gynecology/Oncology, [place] [address] [place] [address] Alfredo Schroeder PA-C [address] [place] [address] 09/16/2024 10:20 AM EST Office Visit General Internal Medicine [facility] [address] [place] [address] Bonita Mares MD [address] [place] [address] Health Maintenance Due Date Last Done Comments Pneumococcal Vaccine: Pediatrics (0 to 5 Years) and At-Risk Patients (6 to 64 Years) (1 of 2 - PCV) 1969 Cologuard 2008 Colonoscopy 2008 Colorectal Cancer Screening 2008 Fecal Occult Blood Test 2008 Sigmoidoscopy 2008 COVID-19 Vaccine (1 - season) 2024 Influenza Vaccine (FLU shot) (#1) 2024 05/22/2022, 05/17/2020, 07/17/2019, Additional history exists TSH 06/26/2024 06/26/2023, 05/06, 12/28/2021, Additional history exists GFR 09/19/2024 09/19/2023, 06/04, 12/28/2021, Additional history exists Mammogram 02/11/2025 02/12/2024, 02/01, 06/06/2022, Additional history exists Depression Monitoring 03/13/2025 03/13/2024 Albumin/Creatinine Ratio 06/02/2025 06/02/2022 DTap/Tdap Vaccines (3 - Td or Tdap) 04/16/2026 04/16/2016, 07/06/2009 Diabetes Screening 09/24/2026 09/24/2023, 0 09/19/2023, 06/26/2023, Additional history exists Lipid Panel 06/26/2028 06/26/2023, 12/03, 01/04/2021, Additional history exists Cervical Cancer Screening Discontinued Pap Smear Discontinued 03/15/2020, 02/01, 05/31/2011, Additional history exists Zoster Vaccines Completed 01/21/2021, 05/17/2020 HPV (Gardasil) Vaccine Aged Out No lo nger eligible based on patient's age to complete this topic HPV/Co-Test Discontinued Hepatitis B Vaccine Aged Out No longe r eligible based on patient's age to complete this topic MENINGOCOCCAL (MENACTRA/MENVEO) Aged Out No longer eligible based on patient's age to complete this topic documented as of this encounter Medical Devices Not on filedocumented as of this encounter Visit Diagnoses Diagnosis HTN, goal below 140/90 Unspecified essential hypertension documented in this encounter Advance Directives * Full Code (Latest Code Status on File) Date Activated Date Inactivated Comments 09/24/2023 2:09 PM 09/24/2023 9:23 PM This order r eflects the patients wishes and were consensually agreed upon. Question Answer Comments Discussion of Advance Direct go occurred with: Not Discussed due to patient's condition * Full Code Date Activated Date Inactivated Comments 05/27/2021 12:26 PM 05/27/2021 6:20 PM This order reflects the patients wishes and were consensually agreed upon. * Full Code Date Activated Date Inactivated Comments 05/27/2021 8:51 AM 05/27/2021 12:26 PM Question Answer Comments Discussion of Advance Directives occurred with: Not Discussed Healthcare Agents on File Name Relationship Healthcare Agent Relationshi p Communication Caroline Hussein Sibling Health Care Repr esentative (appointed verbally by patient or by statute hierarchy) Care Teams Applied Anthropologist Relationship Specialty Start Date End Date Bonita Mares MD [address] [place] [address] PCP - General Internal Medicine 12/28/15 documented as of this encounter
--- OUTSIDE RECORDS SUMMARY | 2024-11-04 09:10 | External Medical Summary | Summary of Care ---
Author Name Unknown Organization [facility] Address [address] [place] [address] Phone [phone] Care Team Providers Care Soiled Linen Distributor Name Role Phone Bonita Mares MD Primary Care Provider [phone] Reason for Visit * Reason Onset Date Comments Medication Refill 09/26/2024 Encounter Details Date Type Department Care Team (Late st Contact Info) Description 09/26/2024 Refill General Internal Medicine [facility] [place] [address] [place] [address] Bonita Mares MD [address] [place] [address] Depression with anxiety; Mild episode of recurrent major depressive disorder (HCC) Allergies Active Allergy Reactions Criticality Noted Date Comments Aspartame Medium 05/31/2011 Mental confusion Flavoring Agent Medium 03/15/2020 Mental confusion documented as of this encounter (statuses as of 09/26/2024) Medications Cholecalciferol (VITAMIN D3) 50 MCG (1999) CapsuleIndicatio ns:Low serum vitamin D Take 1 Cap by mouth daily. 90 Cap 1 9 Active Fish Oil 1000 MG Oral Capsule Take 1 Capsule by mouth in the morning. Active Melatonin 1 MG Oral Tablet Take [...] prior to breakfast or other meds)-per [facility] Aisha. 90 Tablet 4 Active Lisinopril 5 MG Oral Tablet (Prinivil)Indica tions:HTN, goal below 140/90 Take 1 Tablet by mouth in the morning. 90 Tablet 4 Active Gabapentin 300 MG Oral Capsule (Neurontin) Take 1 Capsule by mouth at bedtime. 90 Capsule 4 Active traZODone HCl 50 MG Oral Tablet (Desyrel)Indicat ions:Insomnia, unspecified type TAKE 1 TABLET BY MOUTH AT BEDTIME NEEDED FOR SLEEP 90 Tablet 4 Active buPROPion HCl ER (XL) 300 MG Oral Tablet Extended Release 24 Hour (Wellbutrin XL)Indications:M oderate episode of recurrent major depressive disorder (HCC) Take 1 Tablet by mouth in the morning. 90 Tablet 4 Active Venlafaxine HCl ER 150 MG Oral Capsule Extended Release 24 Hour (Effexor XR)Indications:D epression with anxiety TAKE 1 CAPSULE BY MOUTH ONCE DAILY ALONG WITH 75MG (DO NOT CUT, CRUSH OR CHEW) 90 Capsule 5 Active Venlafaxine HCl ER 75 MG Oral Capsule Extended Release 24 Hour (Effexor XR)Indications:M ild episode of recurrent major depressive disorder (HCC) TAKE 1 CAPSULE BY MOUTH ONCE DAILY ALONG WITH 150MG (DO CUT, CRUSH OR CHEW) 90 Capsule 5 Active Venlafaxine HCl ER 150 MG Oral Capsule Extended Release 24 Hour (Effexor XR)Indications:D epression with anxiety TAKE 1 CAPSULE BY MOUTH ONCE DAILY ALONG WITH 75MG (DO NOT CUT, CRUSH OR CHEW) 90 Capsule 4 09/26/19 25 Discontin ued(Refil l) Venlafaxine HCl ER 75 MG Oral Capsule Extended Release 24 Hour (Effexor XR)Indications:M ild episode of recurrent major depressive disorder (HCC) TAKE 1 CAPSULE BY MOUTH ONCE DAILY ALONG WITH 150MG (DO CUT, CRUSH OR CHEW) 90 Capsule 4 09/26/19 25 Discontin ued(Refil l) documented as of this encounter (statuses as of 09/26/2024) Active Problems Problem Noted Date Diagnosed Date [...] as of this encounter (statuses as of 09/26/2024) Resolved Problems Problem Noted Date Diagnosed Date [...] as of this encounter (statuses as of 09/26/2024) Immunizations Name Administration Dates Next Due Seasonal [...] 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 Not on file Not on file documented as of this encounter Miscellaneous Notes * Telephone Encounter - Bonita Mares MD - 09/26/2024 4:18 PM ESTSigned Prescriptions: Disp Refills Venlafaxine HCl ER 150 MG Oral Capsule Ext*90 Cap*0 Sig: TAKE 1 CAPSULE BY MOUTH ONCE DAILY ALONG WITH 75MG (DO NOT CUT, CRUSH OR CHEW) Authorizing Provider: BONITA MARES Venlafaxine HCl ER 75 MG Oral Capsule Exte*90 Cap*0 Sig: TAKE 1 CAPSULE BY MOUTH ONCE DAILY ALONG WITH 150MG (DO CUT, CRUSH OR CHEW) Au thorizing Provider: BONITA MARES * Telephone Encounter - Onofre Alexander, hammer driver - 09/26/2024 2:43 PM EST Pt called to request refill of strengths she was on prior to admission and out of medication. Placed outgoing call to pharmacy regarding 08/13/2024 prescriptions for Venlafaxine HCl ER 150 MG and 75 MG. Pharmacist stated 90 day prescriptions were transferred to [facility] in [place] and dispensed 08/14/2024. [facility] [address] [place] [address] received a prescription from Dr. Bains on 09/23/2024 for Venlafaxine 37.5 MG take three capsules dispense quantity #112. Insurance not covering and [facility] unable to reach prescriber. Please advise. Thank you, Onofre Alexander New Accounts Clerk I [facility] 09/26/2024,3:43 PM * Telephone Encounter - Onofre Alexander hammer driver - 09/26/2024 2:04 PM EST Transferred to scheduling for hospital follow-up. Pt recently discharged from hospital and is almost out of these medications. Did you pend patient's preferred pharmacy and medication before forwarding?yes Pharmacy: [facility] [address] [place] [address] [place] [address] Pending Prescriptions: Disp Refills Venlafaxine HCl ER 150 MG Oral Capsule Ex*90 Cap*0 Sig: TAKE 1 CAPSULE BY MOUTH ONCE DAILY ALONG WITH 75MG (DO NOT CUT, CRUSH OR CHEW) Venlafaxine HCl ER 75 MG Oral Capsule Ext*90 Cap*0 Sig: TAKE 1 CAPSULE BY MOUTH ONCE DAILY ALONG WITH 150MG (DO CUT, CRUSH OR CHEW) Last Visit: 03/12/2024 (in office), 12/11/2019 (telemedicine) Next Visit: Visit date not found If no future appointments scheduled, and last appointment is greater than a year ago, please schedule patient for a follow-up appointment Last date the medication was ordered: 08/13/2024 Is this request for a controlled substance?No Urine Drug Screen: Results for orders placed or performed in visit on 11/16/16 OPIOIDS/BENZO COMPLIANCE MONITORING W/INTERP Result Value COMPLIANCE INTERP (NOTE) URINE DRUG SCREEN RESULT Amphetamine REFER TO CONFIRMATION RESULT (A) Barbiturates NEGATIVE Benzodiazepines REFER TO CONFIRMATION RESULT (A) Cannabinoids NEGATIVE Cocaine Metabolite NEGATIVE METHADONE METABOLITE NEGATIVE Morphine / Codeine NEGATIVE OXYCODONE POSITIVE (A) COMMENT THE ABOVE SCREENING RESULTS ARE PRESUMPTIVE AND CAN ONLY BE USED FOR MEDICAL PURPOSES. CONFIRMATORY TESTING IS AVAILABLE UPON REQUEST. Cutoff Concentration URINE VALID INTERP NORMAL CREATININE HERMAN 203 NITRITE HERMAN 27 pH HERMAN 5.0 Results for orders placed or performed in visit on 08/07/16 TOX SCREEN, URINE, W/ CONFIRMATION Result Value Amphetamine NEGATIVE Barbiturates NEGATIVE Benzodiazepines NEGATIVE Cannabinoids NEGATIVE Cocaine Metabolite NEGATIVE Morphine / Codeine NEGATIVE METHADONE METABOLITE NEGATIVE OXYCODONE NEGATIVE TOX COMMENT THE ABOVE SCREENING RESULTS ARE PRESUMPTIVE AND CAN ONLY BE USED FOR MEDICAL PURPOSES. POSITIVE RESULTS REFLEX TO CONFIRMATORY TESTING. Cutoff Concentration Patient Phone Numbers Labs: Lab Results Component Value Date/Time CREAT 0.9 09/19/2023 01:53 PM CREAT 0.76 12/28/2021 12:00 AM CREAT 0.9 03/15/2020 01:00 PM POTASSIUM 4.6 09/19/2023 01:53 PM POTASSIUM 4.6 12/28/2021 12:00 AM POTASSIUM 5.0 03/15/2020 01:00 PM TSH 4.39 (H) 06/26/2023 09:15 AM TSH 3.79 06/02/2022 12:00 AM TSH 0.96 03/15/2020 01:00 PM LDL 83 06/26/2023 09:15 AM LDL 120 08/07/2019 09:56 AM LDL NOT APPLICABLE 08/07/2019 09:56 AM LDLCALC 103 (A) 12/28/2021 12:00 AM ALT 119 (H) 06/26/2023 09:15 AM ALT 25 08/07/2019 09:56 AM HGBA1C 5.3 10/11/2015 04:15 PM documented in this encounter Plan of Treatment Upcoming Encounters Date Type Department Care Team (Late st Contact Info) Description 09/30/2024 10:20 AM EST Office Visit General Internal Medicine [facility] [place] [address] [place] [address] Bonita Mares MD [address] [place] [address] Health Maintenance Due Date Last Done Comments Pneumococcal Vaccine: 50+ Years (1 of 2 - PCV) 1982 HPV/Co-Test 1993 Cologuard 2008 Colonoscopy 2008 Colorectal Cancer Screening 2008 Fecal Occult Blood Test 2008 Sigmoidoscopy 2008 Cervical Cancer Screening 03/15/2023 Pap Smear 03/15/2023 03/15/2020, 02/01, 05/31/2011, Additional history exists COVID-19 Vaccine ( season) 2024 Influenza Vaccine (FLU shot) (#1) 2024 05/22/2022, 05/17/2020, 07/17/2019, Additional history exists TSH 06/26/2024 06/26/2023, 05/06, 12/28/2021, Additional history exists GFR 09/19/2024 09/19/2023, 06/04, 12/28/2021, Additional history exists Mammogram 02/11/2025 02/12/2024, 02/01, 06/06/2022, Additional history exists Depression Monitoring 03/13/2025 03/13/2024 Albumin/Creatinine Ratio 06/02/2025 06/02/2022 DTap/Tdap Vaccines (3 - Td or Tdap) 04/16/2026 04/16/2016, 07/06/2009 Diabetes Screening 09/19/2026 09/19/2023, 1 , 12/28/2021, Additional history exists Lipid Panel 06/26/2028 06/26/2023, 12/03, 01/04/2021, Additional history exists Zoster Vaccines Completed 01/21/2021, 05/17/2020 HPV (Gardasil) Vaccine Aged Out No lo nger eligible based on patient's age to complete this topic Hepatitis B Vaccine Aged Out No longe r eligible based on patient's age to complete this topic MENINGOCOCCAL (MENACTRA/MENVEO) Aged Out No longer eligible based on patient's age to complete this topic documented as of this encounter Medical Devices Not on filedocumented as of this encounter Visit Diagnoses Diagnosis Depression with anxiety Dysthymic disorder Mild episode of recurrent major depressive disorder (HCC) documented in this encounter Advance Directives * [...] Healthcare Agent Relationshi p Communication Caroline Hussein [facility] Care Repr esentative (appointed verbally by patient or by statute hierarchy) Care Teams Soiled Linen Distributor Relationship Specialty Start Date End Date Bonita Mares MD [address] [place] [address] PCP - General Internal Medicine 12/28/15 documented as of this encounter
--- OUTSIDE RECORDS SUMMARY | 2024-11-04 09:10 | External Medical Summary | Summary of Care ---
Author Name Unknown Organization [facility] Address [address] [place] [address] Phone [phone] Care Team Providers Care Mission Systems Engineer Name Role Phone Bonita Mares MD Primary Care Provider [phone] Reason for Visit * Reason Onset Date Comments Med Request 07/07/2024 Encounter Details Date Type Department Care Team ([facility] st Contact Info) Description 07/07/2024 Telephone General Internal Medicine [facility] [address] [place] [address] Bonita Mares MD [address] [place] [address] Med Request (/) Allergies Active Allergy Reactions Criticality Noted Date Comments Aspartame Medium 05/31/2011 Mental confusion Flavoring Agent Medium 03/15/2020 Mental confusion documented as of this encounter (statuses as of 08/06/2024) Medications Cholecalciferol (VITAMIN D3) 50 MCG (1999) [...] 1 Tablet by mouth at bedtime. Active Gabapentin 300 MG Oral Capsule (Neurontin) Take 1 Capsule by mouth at bedtime. 4 Active busPIRone HCl 5 MG Oral Tablet [...] prior to breakfast or other meds)-per [facility] DrMaxin. 90 Tablet 4 Active Lisinopril 5 MG Oral Tablet (Prinivil)Indica tions:HTN, goal below 140/90 Take 1 Tablet by mouth in the morning. 90 Tablet 3 07/07/20 24 Discontin ued(Refil l) Levothyroxine Sodium 112 MCG Oral Tablet (Levoxyl) Take 1 Tablet by mouth in the morning. (at least 30 min prior to breakfast or other meds)-per [facility] DrMaxin. 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 When patient returns call, ok for ALEXANDER to relay message, please refer to below documentation. If needed, can transfer to dedicated nurse line. * Telephone Encounter - Gwendolyn Gomez LPN - 07/15/2024 3:39 PM EST Attempted to call patient, there was no answer, left voicemail. When patient returns call, ok for ALEXANDER to relay message, please refer to below documentation. If needed, can transfer to dedicated nurse line. * Addendum Note - Bonita Mares MD - 07/10/2024 5:08 PM ESTAddended by: BONITA MARES on: 07/10/2024 05:08 PM Modules accepted: Orders * Telephone Encounter - Bonita Mares MD - 07/10/2024 5:07 PM EST Only 1 time sent as she is due for fasting labs with TSH as ordered * Addendum Note - Gwendolyn Gomez LPN - 07/10/2024 4:36 PM ESTAddended by: GWENDOLYN GOMEZ on: 07/10/2024 04:36 PM Modules accepted: Orders * Telephone Encounter - Ramandeep Stout OSA - 07/07/2024 2:28 PM EST Patient calling in to check on the status of previous message. Patient Called within 48 hour timeframe. Reminded patient of 48 hour turn-around time. * Telephone Encounter - Ofe Vizcarra CPhT - 07/07/2024 2:13 PM EST Pt calling requesting the following medication below that is listed as "Historical". The following information was provided: Medication Name: Levothyroxine Strength: 112 mg Directions: daily Preferred Quantity: 90 Previous Prescriber: previous PCP Preferred Pharmacy: [facility] Please review and approve if appropriate. Thank you, Ofe Vizcarra CPhT Printed Circuit Board Preassembler [facility] 07/07/2024,2:13 PM documented in this encounter Plan of Treatment Upcoming Encounters Date Type Department Care Team (Late st Contact Info) Description 08/28/2024 3:30 PM EST Office Visit Gynecology/Oncology, [place] [address] [place] [address] Alfredo Schroeder PA-C [address] [place] [address] 09/16/2024 10:20 AM EST Office Visit General Internal Medicine [facility] [place] [address] [place] [address] Bonita Mares MD [address] [place] [address] Health Maintenance Due Date Last Done Comments Pneumococcal Vaccine: Pediatrics (0 to 5 Years) and At-Risk Patients (6 to 64 Years) (1 of 2 - PCV) 1969 Cologuard 2008 Colonoscopy 2008 Colorectal Cancer Screening 2008 Fecal Occult Blood Test 2008 Sigmoidoscopy 2008 COVID-19 Vaccine ( season) 2024 Influenza Vaccine [...] Not on filedocumented as of this encounter Advance Directives * Full Code [...] Agents on File Name Relationship [facility] Caroline Hussein [facility] Health Care Repr esentative (appointed verbally by patient or by statute hierarchy) Care Teams Mission Systems Engineer Relationship Specialty Start Date End Date Bonita Mares MD [address] [facility] [place] [address] PCP - General Internal Medicine 12/28/15 documented as of this encounter
--- OUTSIDE RECORDS SUMMARY | 2024-11-04 09:10 | External Medical Summary | Summary of Care ---
Author Name Unknown Organization [facility] Address [address] [place] [address] Phone [phone] Care Team Providers Care News Reel Cameraman Name Role Phone Bontia Mares MD Primary Care Provider [phone] Reason for Visit * Reason Onset Date Comments Medication Refill 08/12/2024 Encounter Details Date Type Department Care Team (Late st Contact Info) Description 08/12/2024 Refill General Internal Medicine [facility] [place] [address] [place] [address] Bonita Mares MD [address] [place] [address] Depression with anxiety; Mild episode of recurrent major depressive disorder (HCC); Insomnia, unspecified type; Moderate episode of recurrent major depressive disorder (HCC) Allergies Active Allergy Reactions Criticality Noted Date Comments Aspartame Medium 05/31/2011 Mental confusion Flavoring Agent Medium 03/15/2020 Mental confusion documented as of this encounter (statuses as of 08/13/2024) Medications Cholecalciferol (VITAMIN D3) 50 MCG (1999) [...] mouth at bedtime. 90 Capsule 4 Active Venlafaxine HCl ER 150 MG Oral Capsule Extended Release 24 Hour (Effexor XR)Indications:D epression with anxiety TAKE 1 CAPSULE BY MOUTH ONCE DAILY ALONG WITH 75MG (DO NOT CUT, CRUSH OR CHEW) 90 Capsule 4 Active Venlafaxine HCl ER 75 MG Oral Capsule Extended Release 24 Hour (Effexor XR)Indications:M ild episode of recurrent major depressive disorder (HCC) TAKE 1 CAPSULE BY MOUTH ONCE DAILY ALONG WITH 150MG (DO CUT, CRUSH OR CHEW) 90 Capsule 4 Active traZODone HCl 50 MG Oral Tablet (Desyrel)Indicat ions:Insomnia, unspecified type TAKE 1 TABLET BY MOUTH AT BEDTIME NEEDED FOR SLEEP 90 Tablet 4 Active buPROPion HCl ER (XL) 300 MG Oral Tablet Extended Release 24 Hour (Wellbutrin XL)Indications:M oderate episode of recurrent major depressive disorder (HCC) Take 1 Tablet by mouth in the morning. 90 Tablet 4 Active buPROPion HCl ER (XL) 300 MG Oral Tablet Extended Release 24 Hour (Wellbutrin XL)Indications:M oderate episode of recurrent major depressive disorder (HCC) Take 1 Tablet by mouth in the morning. 90 Tablet 2 3 08/12/20 24 Discontin ued(Refil l) traZODone HCl 50 MG Oral Tablet (Desyrel)Indicat ions:Insomnia, unspecified type TAKE 1 TABLET BY MOUTH AT BEDTIME NEEDED FOR SLEEP 90 Tablet 1 3 08/12/20 24 Discontin ued(Refil l) Venlafaxine HCl ER 150 MG Oral Capsule Extended Release 24 Hour (Effexor XR)Indications:D epression with anxiety TAKE 1 CAPSULE BY MOUTH ONCE DAILY ALONG WITH 75MG (DO NOT CUT, CRUSH OR CHEW) 90 Capsule 1 4 08/12/20 24 Discontin ued(Refil l) Venlafaxine HCl ER 75 MG Oral Capsule Extended Release 24 Hour (Effexor XR)Indications:M ild episode of recurrent major depressive disorder (HCC) TAKE 1 CAPSULE BY MOUTH ONCE DAILY ALONG WITH 150MG (DO CUT, CRUSH OR CHEW) 90 Capsule 1 4 08/12/20 24 Discontin ued(Refil l) documented as of this encounter (statuses as of 08/13/2024) Active Problems Problem Noted Date Diagnosed Date [...] as of this encounter (statuses as of 08/13/2024) Resolved Problems Problem Noted Date Diagnosed Date [...] as of this encounter (statuses as of 08/13/2024) Immunizations Name Administration Dates Next Due Seasonal [...] 03/18/2024 Does the household have a re lar source of income? 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 Authorizing Provider: BONITA MARES * Telephone Encounter - Cydney Maurice [facility] - 08/13/2024 1:00 PM ESTPending Prescriptions: Disp Refills Venlafaxine HCl ER 150 MG Oral Capsule Ext*90 Cap*1 Sig: TAKE 1 CAPSULE BY MOUTH ONCE DAILY ALONG WITH 75MG (DO NOT CUT, CRUSH OR CHEW) Venlafaxine HCl ER 75 MG Oral Capsule Exte*90 Cap*1 Sig: TAKE 1 CAPSULE BY MOUTH ONCE DAILY ALONG WITH 150MG (DO CUT, CRUSH OR CHEW) traZODone HCl 50 MG Oral Tablet (Desyrel) 90 Tab*1 Sig: TAKE 1 TABLET BY MOUTH AT BEDTIME NEEDED FOR SLEEP buPROPion HCl ER (XL) 300 MG Oral Tablet E*90 Tab*1 Sig: Take 1 Tablet by mouth in the morning. * Telephone Encounter - Cydney Maurice [facility] - 08/13/2024 12:58 PM EST Pt said she just found out she doesn't have insurance anymore. Pt said she missed her appt today. Unable to authorize medication refills for pended medication(s) at this time. Part of the protocol criteria used for refill authorization was not satisfied. Patient's liver enzymes are elevated and needs lipid panel on file within past year. Bupropion last prescribed for 90 day supply with 2 refill on 12/16/2022 and last filled for 30 day supply on 03/26/24. Please approve if appropriate. Last visit: 03/12/2024 (in office), 12/11/2019 (telemedicine) Next visit: 09/16/2024 Thank you, Cydney Maurice, Trae Clinical Pharmacist [facility]) [phone] 08/13/2024, 12:58 PM * Telephone Encounter - Mary Siddiqui PHARM Tech - 08/12/2024 12:04 PM EST Pt said she just found out she doesn't have insurance anymore. Pt said she missed her appt today. Did you pend patient's preferred pharmacy and medication before forwarding?yes Pharmacy: [facility] [address] [place] [address] Pending Prescriptions: Disp Refills Venlafaxine HCl ER 150 MG Oral Capsule Ex*90 Cap*1 Sig: TAKE 1 CAPSULE BY MOUTH ONCE DAILY ALONG WITH 75MG (DO NOT CUT, CRUSH OR CHEW) Venlafaxine HCl ER 75 MG Oral Capsule Ext*90 Cap*1 Sig: TAKE 1 CAPSULE BY MOUTH ONCE DAILY ALONG WITH 150MG (DO CUT, CRUSH OR CHEW) traZODone HCl 50 MG Oral Tablet (Desyrel) 90 Tab*1 Sig: TAKE 1 TABLET BY MOUTH AT BEDTIME NEEDED FOR SLEEP buPROPion HCl ER (XL) 300 MG Oral Tablet *90 Tab*2 Sig: Take 1 Tablet by mouth in the morning. Last Visit: 03/12/2024 (in office), 12/11/2019 (telemedicine) Next Visit: 09/16/2024 If no future appointments scheduled, and last appointment is greater than a year ago, please schedule patient for a follow-up appointment Last date the medication was ordered: 12/16/2022,07/10/2023,01/21/2024 Is this request for a controlled substance?No [...] 08/28/2024 3:30 PM EST Office Visit Gynecology/Oncology, [place] [address] [place] [address] Alfredo Schroeder PA-C [address] [place] [address] 09/16/2024 10:20 AM EST Office Visit General Internal Medicine [facility] [place] [address] [place] [address] Bonita Mares MD [address] [place] [address] Health Maintenance Due Date Last Done Comments [...] episode of recurrent major depressive disorder (HCC) Insomnia, unspecified type Moderate episode of recurrent major depressive disorder (HCC) [...] patient or by statute hierarchy) Care Teams News Reel Cameraman Relationship Specialty Start Date End Date Bonita Mares MD [address] [place] [address] PCP - General Internal Medicine 12/28/15 documented as of this encounter
--- OUTSIDE RECORDS SUMMARY | 2024-11-04 09:10 | External Medical Summary | Summary of Care ---
Author Name Unknown Organization [facility] Address [address] [place] [address] Phone [phone] Care Team Providers Care Senior Project Architect Name Role Phone Bonita Mares MD Primary Care Provider [phone] Encounter Details Date Type Department Care Team (Late st Contact Info) Description 09/22/2024 Population Health External Data Unspecified Department Allergies Active Allergy Reactions Criticality Noted Date Comments Aspartame Medium 05/31/2011 Mental confusion Flavoring Agent Medium 03/15/2020 Mental confusion documented as of this encounter (statuses as of 09/22/2024) Medications Cholecalciferol (VITAMIN D3) 50 MCG (1999) CapsuleIndication s:Low serum vitamin D Take 1 Cap by mouth daily. 90 Cap 1 9 Active Fish Oil 1000 MG Oral Capsule Take 1 Capsule by mouth in the morning. Active Melatonin 1 MG Oral Tablet Take 1 Tablet by mouth at bedtime. Active busPIRone HCl 5 MG Oral Tablet (Buspar)Indicatio ns:ZOILA (generalized anxiety disorder) Take 1 Tablet by mouth 2 times a day as needed for Pain. 60 Tablet 1 4 Active Benefiber Oral PowderIndications :Constipation, unspecified constipation type Take 1 Tbsf in a glass of water daily 4 Active Levothyroxine Sodium 112 MCG Oral Tablet (Levoxyl) Take 1 Tablet by mouth in the morning. (at least 30 min prior to breakfast or other meds)-per [facility] DrMaxin. 90 Tablet 4 Active Lisinopril 5 MG Oral Tablet (Prinivil)Indicat ions:HTN, goal below 140/90 Take 1 Tablet by mouth in the morning. 90 Tablet 4 Active Gabapentin 300 MG Oral Capsule (Neurontin) Take 1 Capsule by mouth at bedtime. 90 Capsule 4 Active Venlafaxine HCl ER 150 MG Oral Capsule Extended Release 24 Hour (Effexor XR)Indications:De pression with anxiety TAKE 1 CAPSULE BY MOUTH ONCE DAILY ALONG WITH 75MG (DO NOT CUT, CRUSH OR CHEW) 90 Capsule 4 Active Venlafaxine HCl ER 75 MG Oral Capsule Extended Release 24 Hour (Effexor XR)Indications:Mi ld episode of recurrent major depressive disorder (HCC) TAKE 1 CAPSULE BY MOUTH ONCE DAILY ALONG WITH 150MG (DO CUT, CRUSH OR CHEW) 90 Capsule 4 Active traZODone HCl 50 MG Oral Tablet (Desyrel)Indicati ons:Insomnia, unspecified type TAKE 1 TABLET BY MOUTH AT BEDTIME NEEDED FOR SLEEP 90 Tablet 4 Active buPROPion HCl ER (XL) 300 MG Oral Tablet Extended Release 24 Hour (Wellbutrin XL)Indications:Mo derate episode of recurrent major depressive disorder (HCC) Take 1 Tablet by mouth in the morning. 90 Tablet 4 Active documented as of this encounter (statuses as of 09/22/2024) Active Problems Problem Noted Date Diagnosed Date [...] as of this encounter (statuses as of 09/22/2024) Resolved Problems Problem Noted Date Diagnosed Date Resolved Date MEDICATION USE AGREEMENT 11/16/201602/2018 History of lower leg fracture 08/23/2016 05/09/2018 Closed fracture of ulna 08/23/2016 0902/2018 Controlled substance agreement signed 08/07/2016 01/18/2018 History of closed fracture of nasal bones 06/07/2012 05/09/2018 Overview (06/06/2016): ICD-10 update of inactive term Fracture of orbital floor 06/07/2012 Overview (06/07/2012): Right sided - nondisplaced ADVANCE DIRECTIVE INFORMATION 10/18/2005 07/07/2024 Overview (11/21/2005): No, Advance Directive brochure given to patient on November 21, 2005. . 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
--- OUTSIDE RECORDS SUMMARY | 2024-11-04 09:11 | External Medical Summary | Summary of Care ---
Author Name Unknown Organization [facility] Address [address] [place] [address] Phone [phone] Care Team Providers Care Maple Syrup Maker Name Role Phone Bonita Mares MD Primary Care Provider [phone] Reason for Visit * Reason Onset Date Comments Med Request 07/07/2024 Encounter Details Date Type Department Care Team ([facility] st Contact Info) Description 07/07/2024 Telephone General Internal Medicine [facility] [address] [facility] [place] [address] Bonita Mares MD [address] [place] [address] Med Request (/) Allergies Active Allergy Reactions Criticality Noted Date Comments Aspartame Medium 05/31/2011 Mental confusion Flavoring Agent Medium 03/15/2020 Mental confusion documented as of this encounter (statuses as of 07/15/2024) Medications Cholecalciferol (VITAMIN D3) 50 MCG (1999) [...] as of this encounter (statuses as of 07/15/2024) Active Problems Problem Noted Date Diagnosed Date [...] as of this encounter (statuses as of 07/15/2024) Resolved Problems Problem Noted Date Diagnosed Date [...] as of this encounter (statuses as of 07/15/2024) Immunizations Name Administration Dates Next Due Seasonal [...] 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 Thank you, Ofe Vizcarra CPhT Care Services Manager [facility] Services ([facility]) 07/07/2024,2:13 PM documented in this encounter Plan of Treatment Upcoming Encounters Date Type Department Care Team (Late st Contact Info) Description 08/28/2024 3:30 PM EST Office Visit Gynecology/Oncology, [place] [address] [place] [address] Alfredo Schroeder PA-C [address] [place] [address] 09/16/2024 10:20 AM EST Office Visit General Internal Medicine [facility] [address] [place] [address] Bonita Mares MD [address] [place] [address] Health Maintenance Due Date Last Done Comments [...] patient or by statute hierarchy) Care Teams Maple Syrup Maker Relationship Specialty Start Date End Date Bonita Mares MD 200 [place] [address] PCP - General Internal Medicine 12/28/15 documented as of this encounter
--- OUTSIDE RECORDS SUMMARY | 2024-11-04 09:11 | External Medical Summary | Summary of Care ---
Author Name Unknown Organization [facility] Address [address] [place] [address] Phone [phone] Care Team Providers Care Sharemilker Name Role Phone Bonita Mares MD Primary Care Provider [phone] Reason for Visit * Reason Onset Date Comments Med Request 07/07/2024 Encounter Details Date Type Department Care Team ([facility] st Contact Info) Description 07/07/2024 Telephone General Internal Medicine [facility] [address] [facility] [place] [address] Bonita Mares MD [address] [place] [address] Med Request (/) Allergies Active Allergy Reactions Criticality Noted Date Comments Aspartame Medium 05/31/2011 Mental confusion Flavoring Agent Medium 03/15/2020 Mental confusion documented as of this encounter (statuses as of 07/10/2024) Medications Medication Sig Dispensed Refills Start Date End Date Status Cholecalciferol (VITAMIN D3) 50 MCG (1999) CapsuleIndications :Low serum vitamin D Take 1 Cap by mouth daily. 90 Cap 1 08/11/2019 Active Fish Oil 1000 MG Oral Capsule Take 1 Capsule by mouth in the morning. Active buPROPion HCl ER (XL) 300 MG Oral Tablet Extended Release 24 Hour (Wellbutrin XL)Indications:Mod erate episode of recurrent major depressive disorder (HCC) Take 1 Tablet by mouth in the morning. 90 Tablet 2 12/16/2022 Active traZODone HCl 50 MG Oral Tablet (Desyrel)Indicatio ns:Insomnia, unspecified type TAKE 1 TABLET BY MOUTH AT BEDTIME NEEDED FOR SLEEP 90 Tablet 1 07/10/2023 Active Venlafaxine HCl ER 150 MG Oral Capsule Extended Release 24 Hour (Effexor XR)Indications:Dep ression with anxiety TAKE 1 CAPSULE BY MOUTH ONCE DAILY ALONG WITH 75MG (DO NOT CUT, CRUSH OR CHEW) 90 Capsule 1 01/21/2024 Active Venlafaxine HCl ER 75 MG Oral Capsule Extended Release 24 Hour (Effexor XR)Indications:Mil d episode of recurrent major depressive disorder (HCC) TAKE 1 CAPSULE BY MOUTH ONCE DAILY ALONG WITH 150MG (DO CUT, CRUSH OR CHEW) 90 Capsule 1 01/21/2024 Active Melatonin 1 MG Oral Tablet Take 1 Tablet by mouth at bedtime. Active Gabapentin 300 MG Oral Capsule (Neurontin) Take 1 Capsule by mouth at bedtime. 03/12/2024 Active busPIRone HCl 5 MG Oral Tablet (Buspar)Indication s:ZOILA (generalized anxiety disorder) Take 1 Tablet by mouth 2 times a day as needed for Pain. 60 Tablet 1 03/12/2024 Active Benefiber Oral PowderIndications: Constipation, unspecified constipation type Take 1 Tbsf in a glass of water daily 03/12/2024 Active Levothyroxine Sodium 112 MCG Oral Tablet (Levoxyl) Take 1 Tablet by mouth in the morning. (at least 30 min prior to breakfast or other meds)-per [facility] DrMaxin. 90 Tablet 07/10/2024 Active Lisinopril 5 MG Oral Tablet (Prinivil)Indicati ons:HTN, goal below 140/90 Take 1 Tablet by mouth in the morning. 90 Tablet 12/15/2022 4 Discontinue d(Refill) Levothyroxine Sodium 112 MCG Oral Tablet (Levoxyl) Take 1 Tablet by mouth in the morning. (at least 30 min prior to breakfast or other meds)-per [facility] DrMaxin. 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 ZOILA (generalized anxiety disorder) 02/08/2024 Endometrial cancer 08/01/2023 Cancer Staging:Clinical stage from 09/24/2023:FIGO Stage IA(cT1a, cN0(sn), cM0) - Signed by Shreyas Martinez MD on 09/28/2023 Alcohol abuse 08/31/2022 BMI 32.0-32.9,adult 05/18/2021 Overview: 33 Panic disorder 12/26/2016 Acquired hypothyroidism 09/27/2012 Mild episode of recurrent major depressive disor philipp HTN, goal below 140/90 documented as of this encounter (statuses as of 07/10/2024) Resolved Problems Problem Noted Date Diagnosed Date Resolved Date MEDICATION USE AGREEMENT 11/16/201602/2018 History of lower leg fracture 08/23/2016 05/09/2018 Closed fracture of ulna 08/23/201602/2018 Controlled substance agreement signed 08/07/2016 01/18/2018 History of closed fracture of nasal bones 06/07/2012 05/09/2018 Overview: ICD-10 update of inactive term Fracture of orbital floor 06/07/2012 Overview: Right sided - nondisplaced ADVANCE DIRECTIVE INFORMATION 10/18/2005 07/07/2024 Overview: No, Advance Directive brochure given to patient on November 21, 2005. . documented as of this encounter (statuses as of 07/10/2024) Immunizations Name Administration Dates Next Due Seasonal [...] ages 0-17 years) Not on file 03/18/2024 Sex and Gender Information Value Date Recorded Sex Assigned at Female 07/17/2019 6:18 PM EST Gender Identity Female 07/17/2019 6:18 PM EST Sexual Orientation Choose not to disclose 2018 6:18 PM EST Job Start Date Occupation Industry Not on file Not on file Not on file documented as of this encounter Miscellaneous Notes * Addendum Note - Bonita Mares MD [...] if appropriate. Thank you, Ofe Vizcarra CPhT Sheet Tailer [facility]ized [facility] Services ([facility]) 07/07/2024,2:13 PM documented in this encounter Plan of Treatment Upcoming Encounters Date Type Department Care Team (Late st Contact Info) Description 07/14/2024 8:20 AM EST Office Visit General Internal Medicine [facility] [place] [address] [facility] [place] [address] Bonita Mares MD [address] [facility] [place] [address] 08/28/2024 3:30 PM EST Office Visit Gynecology/Oncology, [place] [address] [place] [address] Alfredo Schroeder PA-C [address] [place] [address] 09/16/2024 10:20 AM EST Office Visit General Internal [facility] [place] [address] [facility] [place] [address] Bonita Mares MD [address] [facility] [address] [facility] [address] Health Maintenance Due Date Last Done Comments [...] patient or by statute hierarchy) Care Teams Sharemilker Relationship Specialty Start Date End Date Bonita Mares MD 200 [facility] [place] [address] PCP - General Internal Medicine 12/28/15 documented as of this encounter
--- OUTSIDE RECORDS SUMMARY | 2024-11-04 09:11 | External Medical Summary | Summary of Care ---
Author Name Unknown Organization [facility] Address [address] [place] [address] Phone [phone] Care Team Providers Care Air Brake Rigger Name Role Phone Bonita Mares MD Primary Care Provider [phone] Reason for Visit * Reason Onset Date Comments Med Request 07/07/2024 Encounter Details Date Type Department Care Team ([facility] st Contact Info) Description 07/07/2024 Telephone General Internal Medicine [facility] 200 [place] [address] Bonita Mares MD [address] [place] [address] Med Request (/) Allergies Active Allergy Reactions Criticality Noted Date Comments Aspartame Medium 05/31/2011 Mental confusion Flavoring Agent Medium 03/15/2020 Mental confusion documented as of this encounter (statuses as of 07/08/2024) Medications Medication Sig Dispensed Refills Start Date End Date Status Cholecalciferol (VITAMIN D3) 50 MCG (1999) CapsuleIndications:L ow serum vitamin D Take 1 Cap by mouth daily. 90 Cap 1 08/11/2019 Active Fish Oil 1000 MG Oral Capsule Take 1 Capsule by mouth in the morning. Active Lisinopril 5 MG Oral Tablet (Prinivil)Indication s:HTN, goal below 140/90 Take 1 Tablet by mouth in the morning. 90 Tablet 12/15/2022 Active buPROPion HCl ER (XL) 300 MG Oral Tablet Extended Release 24 Hour (Wellbutrin XL)Indications:Moder ate episode of recurrent major depressive disorder (HCC) Take 1 Tablet by mouth in the morning. 90 Tablet 2 12/16/2022 Active traZODone HCl 50 MG Oral Tablet (Desyrel)Indications :Insomnia, unspecified type TAKE 1 TABLET BY MOUTH AT BEDTIME NEEDED FOR SLEEP 90 Tablet 1 07/10/2023 Active Venlafaxine HCl ER 150 MG Oral Capsule Extended Release 24 Hour (Effexor XR)Indications:Depre ssion with anxiety TAKE 1 CAPSULE BY MOUTH ONCE DAILY ALONG WITH 75MG (DO NOT CUT, CRUSH OR CHEW) 90 Capsule 1 01/21/2024 Active Venlafaxine HCl ER 75 MG Oral Capsule Extended Release 24 Hour (Effexor XR)Indications:Mild episode of recurrent major depressive disorder (HCC) TAKE 1 CAPSULE BY MOUTH ONCE DAILY ALONG WITH 150MG (DO CUT, CRUSH OR CHEW) 90 Capsule 1 01/21/2024 Active Levothyroxine Sodium 112 MCG Oral Tablet (Levoxyl) Take 1 Tablet by mouth in the morning. (at least 30 min prior to breakfast or other meds)-per [facility] DrMaxin. 02/08/2024 Active Melatonin 1 MG Oral Tablet Take 1 Tablet by mouth at bedtime. Active Gabapentin 300 MG Oral Capsule (Neurontin) Take 1 Capsule by mouth at bedtime. 03/12/2024 Active busPIRone HCl 5 MG Oral Tablet (Buspar)Indications: ZOILA (generalized anxiety disorder) Take 1 Tablet by mouth 2 times a day as needed for Pain. 60 Tablet 1 03/12/2024 Active Benefiber Oral PowderIndications:Co nstipation, unspecified constipation type Take 1 Tbsf in a glass of water daily 03/12/2024 Active documented as of this encounter (statuses as of 07/08/2024) Active Problems Problem Noted Date Diagnosed Date [...] as of this encounter (statuses as of 07/08/2024) Resolved Problems Problem Noted Date Diagnosed Date [...] as of this encounter (statuses as of 07/08/2024) Immunizations Name Administration Dates Next Due Seasonal [...] encounter Miscellaneous Notes * Telephone Encounter - Ramandeep Stout OSA [...] if appropriate. Thank you, Ofe Vizcarra CPhT Scout Sniper [facility] Services ([facility]) 07/07/2024,2:13 PM documented in this encounter Plan of Treatment Upcoming Encounters Date Type Department Care Team (Late st Contact Info) Description 07/10/2024 1:00 PM EST Office Visit General Internal Medicine [facility] [address] [place] [address] Bonita Mares MD [facility] [address] [place] [address] 08/28/2024 3:30 PM EST Office Visit Gynecology/Oncology, [place] [address] [place] [address] Alfredo Schroeder PA-C [address] [place] [address] 09/16/2024 10:20 AM EST Office Visit General Internal Medicine [facility] [address] [place] [address] Bonita Mares MD [address] [place] [address] Health Maintenance Due Date Last Done Comments [...] Healthcare Agent Relationshi p Communication Caroline Hussein [facility] Health Care Repr esentative (appointed verbally by patient or by statute hierarchy) Care Teams Air Brake Rigger Relationship Specialty Start Date End Date Bonita Mares MD 200 [place] [address] PCP - General Internal Medicine 12/28/15 documented as of this encounter
--- OUTSIDE RECORDS SUMMARY | 2024-11-04 09:11 | External Medical Summary ---
Author Name Unknown Address Unknown Organization [facility] [address] [place] [address] Laboratory Report Ordering Provider Test Date Status JOHN BRADEN 07/28/2024 22:45:00 Final Observation Date Value Abnormality Reference (Units ) Status Neutrophils 07/29/2024 00:59 37 Below low normal 45-80 (%) Final Lymphocytes 07/29/2024 00:59 45 21-51 (%) Final Atypical Lymphocytes 07/29/2024 00:59 1.0 0-6 (%) Final Monocytes 07/29/2024 00:59 14 Above high normal 2-11 (%) Final Eosinophils 07/29/2024 00:59 1 0-3 (%) Final Basophils 07/29/2024 00:59 2 Above high normal 0-1 (%) Final Absolute Neutrophils 07/29/2024 00:59 2.41 1.6-6.1 (X10E+09/L) Final Absolute Lymphocytes 07/29/2024 00:59 2.98 1.2-3.7 (X10E+09/L) Final Absolute Monocytes 07/29/2024 00:59 0.91 Above high normal 0.2-0.9 (X10E+09/L) Final Absolute Eosinophils 07/29/2024 00:59 0.07 0.0-0.4 (X10E+09/L) Final Absolute Basophils 07/29/2024 00:59 0.13 Above high normal 0.0-0.1 (X10E+09/L) Final Performing Location [facility] [address] [place] [address]
--- OUTSIDE RECORDS SUMMARY | 2024-11-04 09:11 | External Medical Summary | Summary of Care ---
Author Name Unknown Organization [facility] Address [address] [place] [address] Phone [phone] Care Team Providers Care Family Service Caseworker Name Role Phone Bonita Mares MD Primary Care Provider [phone] Reason for Visit * Reason Onset Date Comments Med Request 07/07/2024 Encounter Details Date Type Department Care Team ([facility] st Contact Info) Description 07/07/2024 Telephone General Internal Medicine [facility] 200 [facility] [place] [address] Bonita Mares MD [address] [place] [address] Med Request (/) Allergies Active Allergy Reactions Criticality Noted Date Comments Aspartame Medium 05/31/2011 Mental confusion Flavoring Agent Medium 03/15/2020 Mental confusion documented as of this encounter (statuses as of 07/30/2024) Medications Cholecalciferol (VITAMIN D3) 50 MCG (1999) [...] as of this encounter (statuses as of 07/30/2024) Active Problems Problem Noted Date Diagnosed Date 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 ZOILA (generalized anxiety disorder) 02/08/2024 Endometrial cancer 08/01/2023 Cancer Staging:Clinical stage from 09/24/2023:FIGO Stage IA(cT1a, cN0(sn), cM0) - Signed by Shreyas Martienz MD on 09/28/2023 Alcohol abuse 08/31/2022 BMI 32.0-32.9,adult 05/18/2021 Overview (08/01/2023): 33 Panic disorder 12/26/2016 Acquired hypothyroidism 09/27/2012 Mild episode of recurrent major depressive disor philipp HTN, goal below 140/90 documented as of this encounter (statuses as of 07/30/2024) Resolved Problems Problem Noted Date Diagnosed Date [...] as of this encounter (statuses as of 07/30/2024) Immunizations Name Administration Dates Next Due Seasonal [...] 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 Thank you, Ofe Vizcarra CPhT Enrollment Management Vice President [facility] Services ([facility]) 07/07/2024,2:13 PM documented in this encounter Plan of Treatment Upcoming Encounters Date Type Department Care Team (Late st Contact Info) Description 08/28/2024 3:30 PM EST Office Visit Gynecology/Oncology, [place] [address] [place] [address] Alfredo Schroeder PA-C [address] [place] [address] 09/16/2024 10:20 AM EST Office Visit General Internal Medicine [facility] [address] [place] [address] Bonita Mares MD [address] [place] [address] Health Maintenance Due Date Last Done Comments [...] patient or by statute hierarchy) Care Teams Family Service Caseworker Relationship Specialty Start Date End Date Bonita Mares MD 200 [place] [address] PCP - General Internal Medicine 12/28/15 documented as of this encounter
--- OUTSIDE RECORDS SUMMARY | 2024-11-04 09:11 | External Medical Summary | Summary of Care ---
Author Name Unknown Organization [facility] Address [address] [place] [address] Phone [phone] Care Team Providers Care Tear Down Worker Name Role Phone Bonita Mares MD Primary Care Provider Reason for Visit * Reason Onset Date Comments Med Request 07/07/2024 Encounter Details Date Type Department Care Team ([facility] st Contact Info) Description 07/07/2024 Telephone General Internal Medicine [facility] [address] [place] [address] Bonita Mares MD [address] [place] [address] Med Request (/) Allergies Active Allergy Reactions [...] if appropriate. Thank you, Ofe Vizcarra CPhT Sight Effects Specialist [facility] Services ([facility]) 07/07/2024,2:13 PM documented in this encounter Plan of Treatment Upcoming Encounters Date Type Department Care Team (Late st Contact Info) Description 07/10/2024 1:00 PM EST Office Visit General Internal Medicine [facility] [place] [address] [place] [address] Bonita Mares MD [facility] [address] [place] [address] 08/28/2024 3:30 PM EST Office Visit Gynecology/Oncology, [place] [address] [place] [address] Alfredo Schroeder PA-C [address] [place] [address] 09/16/2024 10:20 AM EST Office Visit General Internal Medicine [facility] [place] [address] [place] [address] Bonita Mares MD [address] [place] [address] Health Maintenance Due Date Last Done Comments [...] Healthcare Agent Relationshi p Communication Caroline Hussein [facility] Health Care Repr esentative (appointed verbally by patient or by statute hierarchy) Care Teams Tear Down Worker Relationship Specialty Start Date End Date Bonita Mares MD 200 [place] [address] PCP - General Internal Medicine 12/28/15 documented as of this encounter
--- OUTSIDE RECORDS SUMMARY | 2024-11-04 09:11 | External Medical Summary ---
Author Name Unknown Address Unknown Organization [facility] [address] [place] [address] Laboratory Report Ordering Provider Test Date Status LILIYA SHAHIDJOHN 07/28/2024 22:45:00 Final Observation Date Value Abnormality Reference (Units ) Status Magnesium 07/29/2024 00:48 2.2 1.7-2.8 (mg/d L) Final Performing Location [facility] [address] [place] [address]
--- OUTSIDE RECORDS SUMMARY | 2024-11-04 09:11 | External Medical Summary ---
Author Name Unknown Address Unknown Organization [facility] [address] [place] [address] Laboratory Report Ordering Provider Test Date Status JOHN BRADEN 07/28/2024 22:45:00 Final Observation Date Value Abnormality Reference (Units ) Status Alcohol, Medical 07/29/2024 00:53 299 Above upper panic limits (mg/dL) Final This ethyl alcohol result is for medical purposes only. CRITICAL VALUE CALLED / READ BACK BY: DR. LOPEZ, ER, 0052, CW Performing Location [facility] [address] [place] [address]
--- OUTSIDE RECORDS SUMMARY | 2024-11-04 09:11 | External Medical Summary ---
Author Name Unknown Address Unknown Organization [facility] [address] [place] [address] Laboratory Report Ordering Provider Test Date Status JOHN BRADEN 07/28/2024 22:45:00 Final Observation Date Value Abnormality Reference (Units ) Status Glucose 07/29/2024 00:48 98 70-99 (mg/dL) Final BUN 07/29/2024 00:48 8 7-18 (mg/dL) Final Creatinine 07/29/2024 00:48 0.86 0.60-1.30 (m g/dL) Final eGFR 07/29/2024 00:48 77 >59 (mL/min/1 .73m2) Final eGFR = 142 X [min(Scr/k,1)]* *a [max(Scr/k,1)-1.200x0.9938age X 1.012 [if female] Where Scr is serum creatinine; k is 0.7 for females and 0.9 males; a is -0.241 for females and -0.302 for males; min indicates the minimum of Scr/k or 1, max indicates the maximum of Scr/k or 1 Sodium 07/29/2024 00:48 137 136-145 (mmol /L) Final Potassium 07/29/2024 00:48 3.6 3.6-5.0 (mmol /L) Final Chloride 07/29/2024 00:48 105 101-111 (mmol /L) Final CO2 07/29/2024 00:48 23 21-31 (mmol/L ) Final Anion Gap 07/29/2024 00:48 13 6-16 (mmol/L) Final Calcium 07/29/2024 00:48 8.6 8.4-10.5 (mg/ dL) Final Total Protein 07/29/2024 00:48 7.7 6.0-8.3 ( g/dL) Final Albumin 07/29/2024 00:48 3.6 3.2-5.5 (g/dL ) Final Bilirubin, Total 07/29/2024 00:48 0.6 0.2-1. 0 (mg/dL) Final AST 07/29/2024 00:48 212 Above high normal 10-42 (U/L) Final ALT 07/29/2024 00:48 114 Above high normal 10-60 (U/L) Final Alkaline Phosphatase 07/29/2024 00:48 132 Above high n ormal 42-121 (U/L) Final Performing Location [facility] [address] [place] [address]
--- OUTSIDE RECORDS SUMMARY | 2024-11-04 09:11 | External Medical Summary ---
Author Name Unknown Address Unknown Organization R4[facility] [address] [place] [address] Laboratory Report Ordering Provider Test Date Status JOHN BRADEN 07/28/2024 22:45:00 Final Observation Date Value Abnormality Reference (Units ) Status Salicylate 07/29/2024 00:53 <6 <30 (mg/dL) Final Performing Location [facility] [address] [place] [address]
--- OUTSIDE RECORDS SUMMARY | 2024-11-04 09:11 | External Medical Summary | Summary of Care ---
Author Name Unknown Organization [facility] Address [address] [place] [address] Phone [phone] Care Team Providers Care Supervisor Pastry Name Role Phone Bonita Mares MD Primary Care Provider [phone] Encounter Details Date Type Department Care Team ([facility] st Contact Info) Description 07/30/2024 Population Health External Data Unspecified Department Allergies [...] a glass of water daily 4 Active Lisinopril 5 MG Oral Tablet (Prinivil)Indicat ions:HTN, goal below 140/90 Take 1 Tablet by mouth in the morning. 90 Tablet 1 4 Active Levothyroxine Sodium 112 MCG Oral Tablet (Levoxyl) Take 1 Tablet by mouth in the morning. (at least 30 min prior to breakfast or other meds)-per CVIM DrMaxin. 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 on file Not on file documented as of this encounter Plan of Treatment Upcoming Encounters Date Type Department Care Team (Late st Contact Info) Description 08/28/2024 3:30 PM EST Office Visit Gynecology/Oncology, [place] [address] [facility] [place] [address] Alfredo Schroeder PA-C [address] [place] [phone] 09/16/2024 10:20 AM EST Office Visit General Internal Medicine [place] Sarah Bravo [address] [place] [address] Bonita Mares MD 200 [facility] [place] [address] Health Maintenance Due Date Last Done Comments [...] Healthcare Agent Relationshi p Communication Caroline Hussein [facility] Health Care Repr esentative (appointed verbally by patient or by statute hierarchy) Care Teams Supervisor Pastry Relationship Specialty Start Date End Date Bonita Mares MD 200 [facility] [place] [address] PCP - General Internal Medicine 12/28/15 documented as of this encounter
--- OUTSIDE RECORDS SUMMARY | 2024-11-04 09:11 | External Medical Summary ---
Author Name Unknown Address Unknown Organization R4[facility] [address] [place] [address] Laboratory Report Ordering Provider Test Date Status LILIYA SHAHIDJOHN 07/28/2024 22:45:00 Final Observation Date Value Abnormality Reference (Units ) Status Lipase 07/29/2024 00:48 49 22-51 (U/L) F inal Performing Location [facility] [address] [place] [address] [address]
--- OUTSIDE RECORDS SUMMARY | 2024-11-04 09:11 | External Medical Summary ---
Author Name Unknown Address Unknown Organization R4[facility] [address] [place] [address] Laboratory Report Ordering Provider Test Date Status JOHN BRADEN 07/28/2024 22:46:00 Final Observation Date Value Abnormality Reference (Units ) Status Buprenorphine, Urine 07/29/2024 12:05 Negative NE GAT Final Detection Limit = 5 ng/mL Fentanyl, Urine 07/29/2024 12:05 Negative NEGAT Final (Cutoff limit: 1 ng/mL) Note: 07/29/2024 12:05 Fin al These tests use antibodies t o screen for the presence of drugs of abuse. The tests meet standards for detection when the indicated drugs are present in levels above a cutoff used for clinical purposes only. The tests might react with compounds other than the drugs indicated, and the results are presumptive and unconfirmed. Clinical correlation is necessary for interpretation. Unconfirmed positive screening results must not be used for non-medical purposes. Amphetamine/Methamph, Urine 07/28/2024 23:04 Negative Oriana l NEGAT Final Barbiturates, Urine 07/28/2024 23:04 Negative Normal NEG AT Final Benzodiazepine, Urine 07/28/2024 23:04 Positive Abnormal N EGAT Final Cocaine, Urine 07/28/2024 23:04 Negative Normal NEGAT Final Methadone, Urine 07/28/2024 23:04 Negative Normal NEGAT Final Opiates, Urine 07/28/2024 23:04 Negative Normal NEGAT Final Oxycodone Qual Urine 07/28/2024 23:04 Negative Normal NE GAT Final Phencyclidine, Urine 07/28/2024 23:04 Negative Normal NE GAT Final Cannabinoids, Urine 07/28/2024 23:04 Negative Normal NEG AT Final Tricyclics, Urine 07/28/2024 23:04 Negative Normal NEGAT Final MDMA, Urine 07/28/2024 23:04 Negative Normal NEGAT F inal Methamphetamines, Urine 07/28/2024 23:04 Negative Normal NEGAT Final Performing Location [facility] [address] [address]
--- OUTSIDE RECORDS SUMMARY | 2024-11-04 09:11 | External Medical Summary ---
Author Name Unknown Address Unknown Organization R4[facility] [address] [place] [address] [address] Laboratory Report Ordering Provider Test Date Status LILIYA KEYDAYANNAJustin 07/28/2024 22:45:00 Final Observation Date Value Abnormality Reference (Units ) Status Acetaminophen 07/29/2024 00:53 <10.0 Below low normal 10 -30 (ug/mL) Final Therapeutic Range: 10.0 to 2 0.0 ug/dL Potentially Toxic: >150.0 ug/dL at 4 Hrs post ingestion >40.0 ug/dL at 12 Hrs post ingestion Performing Location [facility] [address] [place] [address]
--- OUTSIDE RECORDS SUMMARY | 2024-11-04 09:11 | External Medical Summary | Summary of Care ---
Author Name Unknown Organization [facility] Address [address] [place] [address] Phone [phone] Care Team Providers Care Geriatrics Physician Name Role Phone Bonita Mares MD Primary Care Provider [phone] Reason for Visit * Reason Onset Date Comments Med Request 07/07/2024 Encounter Details Date Type Department Care Team ([facility] st Contact Info) Description 07/07/2024 Telephone General Internal Medicine [facility] [address] [facility] [place] [address] Bonita Mares MD 200 [place] [address] Med Request (/) Allergies Active Allergy Reactions [...] a glass of water daily 03/12/2024 Active Lisinopril 5 MG Oral Tablet (Prinivil)Indicati ons:HTN, goal below 140/90 Take 1 Tablet by mouth in the morning. 90 Tablet 12/15/2022 Discontinue d(Refill) documented as of this encounter [...] encounter Miscellaneous Notes * Addendum Note - Gwendolyn Gomez, SELNI - 07/10/2024 4:36 PM ESTAddended by: GWENDOLYN [...] if appropriate. Thank you, Ofe Vizcarra CPhT Credit Relationship Manager [facility] 07/07/2024,2:13 PM documented in this encounter Plan of Treatment Upcoming Encounters Date Type Department Care Team (Late st Contact Info) Description 07/14/2024 8:20 AM EST Office Visit General Internal Medicine [facility] [address] [place] [address] Bonita Mares MD [address] [place] [address] 08/28/2024 3:30 PM EST Office Visit Gynecology/Oncology, [place] [address] [place] [address] Alfredo Schroeder PA-C [address] [place] [phone] 09/16/2024 10:20 AM EST Office Visit General Internal Medicine [facility] [address] [place] [address] Bonita Mares MD 200 [facility] [place] [address] Health Maintenance Due Date Last Done Comments Pneumococcal Vaccine: Pediatrics (0 to 5 Years) and At-Risk Patients (6 to 64 Years) (1 of 2 - PCV) 1969 Cologuard 2008 Colonoscopy 2008 Colorectal Cancer Screening 2008 Fecal Occult Blood Test 2008 Sigmoidoscopy 2008 COVID-19 Vaccine ( - season) 2024 Influenza Vaccine (FLU shot) [...] Healthcare Agent Relationshi p Communication Caroline Hussein [facility] Health Care Repr esentative (appointed verbally by patient or by statute hierarchy) Care Teams Geriatrics Physician Relationship Specialty Start Date End Date Bonita Mares MD [address] [facility] [place] [address] PCP - General Internal Medicine 12/28/15 documented as of this encounter
--- OUTSIDE RECORDS SUMMARY | 2024-11-04 09:11 | External Medical Summary ---
Author Name Unknown Address Unknown Organization R4[facility] [address] [address] Laboratory Report Ordering Provider Test Date Status JOHN BRADEN 07/28/2024 22:45:00 Final Observation Date Value Abnormality Reference (Units ) Status WBC 07/29/2024 00:50 6.5 4.0-10.0 (X10 E+09/L) Final RBC 07/29/2024 00:50 4.36 3.9-5.2 (X10E +12/L) Final Hemoglobin 07/29/2024 00:50 14.4 11.2-15.7 (g /dL) Final Hematocrit 07/29/2024 00:50 41.8 34-45 (%) Fi nal MCV 07/29/2024 00:50 95.9 79-98 (fL) Fi nal MCH 07/29/2024 00:50 33.1 Above high normal 26.0- 32.0 (pg) Final MCHC 07/29/2024 00:50 34.5 32-36 (g/dL) Final Platelets 07/29/2024 00:50 204 150-370 (X10E +09/L) Final PERIPHERAL SMEAR REVIEWED RDW 07/29/2024 00:50 13.6 (%) Fin al Neutrophils 07/29/2024 00:49 Manual Diff Performed 34.0-71.1 (%) Final Lymphocytes 07/29/2024 00:49 Manual Diff Performed 19.3-51.7 (%) Final Monocytes 07/29/2024 00:49 Manual Diff Performed 4 .7-12.5 (%) Final Eosinophils 07/29/2024 00:49 Manual Diff Performed 0.7-5.8 (%) Final Basophils 07/29/2024 00:49 Manual Diff Performed 0 .1-1.2 (%) Final Absolute Neutrophils 07/29/2024 00:49 Manual Diff Performe d 1.6-6.1 (X10E+09/L) Final Absolute Lymphocytes 07/29/2024 00:49 Manual Diff Performe d 1.2-3.7 (X10E+09/L) Final Absolute Monocytes 07/29/2024 00:49 Manual Diff Performed 0.2-0.9 (X10E+09/L) Final Absolute Eosinophils 07/29/2024 00:49 Manual Diff Performe d 0.0-0.4 (X10E+09/L) Final Absolute Basophils 07/29/2024 00:49 Manual Diff Performed 0.0-0.1 (X10E+09/L) Final Performing Location [facility] [address] [place] [address]
--- OUTSIDE RECORDS SUMMARY | 2024-11-04 09:11 | External Medical Summary | Summary of Care ---
Author Name Unknown Organization [facility] Address [address] [place] [address] Phone [phone] Care Team Providers Care Dietitian Helper Name Role Phone Bonita Mares MD Primary Care Provider [phone] Encounter Details Date Type Department Care Team ([facility] st Contact Info) Description 07/28/2024 Population Health External Data Unspecified Department Allergies Active Allergy Reactions Criticality Noted Date Comments Aspartame Medium 05/31/2011 Mental confusion Flavoring Agent Medium 03/15/2020 Mental confusion documented as of this encounter (statuses as of 07/28/2024) Medications Cholecalciferol (VITAMIN D3) 50 MCG (1999) [...] as of this encounter (statuses as of 07/28/2024) Active Problems Problem Noted Date Diagnosed Date [...] as of this encounter (statuses as of 07/28/2024) Resolved Problems Problem Noted Date Diagnosed Date [...] as of this encounter (statuses as of 07/28/2024) Immunizations Name Administration Dates Next Due Seasonal [...] 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 on file Not on file documented as of this encounter Plan of Treatment Upcoming Encounters Date Type Department Care Team (Late st Contact Info) Description 08/28/2024 3:30 PM EST Office Visit Gynecology/Oncology, [place] [address] [facility] [place] [address] Alfredo Schroeder PA-C [address] [place] [facility] [place] [phone] 09/16/2024 10:20 AM EST Office Visit General Internal Medicine [place] Bravo [address] [place] [address] Bonita Mares MD 200 [facility] [place] [address] Health Maintenance Due Date Last Done Comments [...] Agent Relationshi p Communication Caroline Hussein [facility] Health Care Repr esentative (appointed verbally by patient or by statute hierarchy) Care Teams Dietitian Helper Relationship Specialty Start Date End Date Bonita Mares MD 200 [facility] [place] [address] PCP - General Internal Medicine 12/28/15 documented as of this encounter
--- OUTSIDE RECORDS SUMMARY | 2024-11-04 09:11 | External Medical Summary | Summary of Care ---
Author Name Unknown Organization [facility] Address [address] [place] [address] Phone [phone] Care Team Providers Care Tricot Knitting Machine Operator Name Role Phone Bonita Mares MD Primary Care Provider [phone] Reason for Visit * Reason Onset Date Comments Medication Refill 07/07/2024 Encounter Details Date Type Department Care Team (Late st Contact Info) Description 07/07/2024 Refill General Internal Medicine [facility] [place] [address] [facility] [place] [address] Bonita Mares MD 200 [place] [address] HTN, goal below 140/90 Allergies Active Allergy Reactions Criticality Noted Date [...] mouth in the morning. 90 Tablet 1 07/08/2024 Active Lisinopril 5 MG Oral Tablet (Prinivil)Indicati [...] encounter Miscellaneous Notes * Telephone Encounter - Xavier Reid [facility] - 07/08/2024 3:52 PM ESTSigned Prescriptions: Disp Refills Lisinopril 5 MG Oral Tablet (Prinivil) 90 Tab*1 Sig: Take 1 Tablet by mouth in the morning. Authorizing Provider: BONITA MARES User: XAVIER REID * Telephone Encounter - Ofe Vizcarra CPhT - 07/07/2024 2:14 PM EST Did you pend patient's preferred pharmacy and medication before forwarding?yes Pharmacy: [facility] [address] [place] [address] Pending Prescriptions: Disp Refills Lisinopril 5 MG Oral Tablet (Prinivil) 90 Tab*0 Sig: Take 1 Tablet by mouth in the morning. Last Visit: 03/12/2024 (in office), 12/11/2019 (telemedicine) Next Visit: 09/16/2024 If no future appointments scheduled, and last appointment is greater than a year ago, please schedule patient for a follow-up appointment Last date the medication was ordered: 12/15/2022 Is this request for a controlled substance?No [...] PM EST Office Visit General Internal Medicine [facility] [place] [address] [place] [address] Bonita Mares MD [address] [place] [address] 08/28/2024 3:30 PM EST Office Visit Gynecology/Oncology, [place] [address] [place] [facility] [place] [address] Alfredo Schroeder PA-C [address] [place] [facility] [place] [phone] 09/16/2024 10:20 AM EST Office Visit General Internal Medicine [place] Sarah Bravo [address] [place] [address] Bonita Mares MD [address] [facility] [place] [address] Health Maintenance Due Date Last Done Comments [...] patient or by statute hierarchy) Care Teams Tricot Knitting Machine Operator Relationship Specialty Start Date End Date Bonita Mares MD 200 [place] [address] PCP - General Internal Medicine 12/28/15 documented as of this encounter
[2024-11-04] MEDS: THIAMINE HCL 500 MG in SODIUM CHLORIDE 0.9% 50 ML IV STA (09:13)
[2024-11-04 09:14] LABS: Adenovirus PCR Not Detected (NotDetected); Bordetella parapertussis PCR Not Detected (NotDetected); Bordetella pertussis PCR Not Detected (NotDetected); Chlamydia pneumoniae PCR Not Detected (NotDetected); Coronavirus 229E PCR Not Detected (NotDetected); Coronavirus CoV-2 (COVID19)PCR Not Detected (NotDetected); Coronavirus HKU1 PCR Not Detected (NotDetected); Coronavirus NL63 PCR Not Detected (NotDetected); Coronavirus OC43PCR Not Detected (NotDetected); Human Metapneumovirus PCR Not Detected (NotDetected); Influenza A PCR Not Detected (NotDetected); Influenza B PCR Not Detected (NotDetected); Mycoplasma pneumoniae PCR Not Detected (NotDetected); Parainfluenza Virus 1 PCR Not Detected (NotDetected); Parainfluenza Virus 2 PCR Not Detected (NotDetected); Parainfluenza Virus 3 PCR Not Detected (NotDetected); Parainfluenza Virus 4 PCR Not Detected (NotDetected); Respiratory Syncytial VirusPCR Not Detected (NotDetected); Rhinovirus/Enterovirus PCR Not Detected (NotDetected)
--- NOTE | 2024-11-04 09:32 | CT Scan Report ---
MAXILLOFACIAL CT WITHOUT CONTRAST CLINICAL HISTORY: recurrent falls, bruising, etoh COMPARISON STUDY: Facial bone CT December 14, 2015. TECHNIQUE: A maxillofacial CT was performed without IV contrast. Coronal and sagittal reformats were viewed. Automated exposure control was utilized for the study. A dose lowering technique was utiliz ed adhering to the principles of ALARA. FINDINGS: A left periorbital contusion is present. The left globe is intact. There is no retrobulbar hematoma. Present. Alignment of the temporomandibular joints is anatomic. There is no skull base frac ture. Old right nasal bone fracture is again noted. IMPRESSION: 1. No acute facial fracture. 2. Left periorbital contusion. Left globe intact. No retrobulbar hematoma. ACT 112: Negative or not required by law. Electronically signed by: Cristi Mora M.D. 11/04/2024 9:30 AM
--- NOTE | 2024-11-04 09:33 | CT Scan Report ---
CT head/brain wo con CLINICAL HISTORY: 59 years-old Female with recurrent falls, bruising, etoh. Acute head trauma status post fall TECHNIQUE: Multiple axial CT images of the head were obtained without contrast. A dose lowering tech nique was utilized adhering to the principles of ALARA. COMPARISON: CT cervical maxillofacial studies of same day, head CT 12/14/2015 FINDINGS: No acute intracranial hemorrhage, midline shift, intracranial mass, hydrocephalus, territorial ischem ia or abnormal extra-axial collection. Low-lying cerebellar tonsils. The calvarium is intact. 4 cm left lateral parietal scalp contusion. Additional left periorbital and facial contusions are partially imaged. The paranasal sinuses, mastoid air cells, and middle ear cav ities are clear. IMPRESSION: 1. No acute intracranial abnormality or calvarial fracture. 2. Left scalp and facial contusions. ACT 112: Negative or not required by law. The above report was generated using voice recognition software. It may contain grammatical, syntax o r spelling errors. Electronically signed by: Erasmo Martínez M.D. 11/04/2024 9:32 AM
--- NOTE | 2024-11-04 09:41 | CT Scan Report ---
CT OF THE CHEST WITH IV CONTRAST CLINICAL HISTORY: recurrent falls, bruising, etoh COMPARISON STUDY: No previous studies for comparison. TECHNIQUE: Following IV administration of 94 mL of Optiray, helical axial images of the chest were o btained. Sagittal and coronal reconstructions were viewed as well as maximal intensity projections o n an independent 3-D workstation. Automated exposure control was utilized for the study. A dose low ering technique was utilized adhering to the principles of ALARA. FINDINGS: There is no evidence for traumatic injury to the thoracic aorta. There is mild dilatation of the ascending aorta measuring up to 3.9 cm. Size of the heart is normal. There is moderate circumf erential wall thickening of the mid to distal esophagus with minimal adjacent stranding. There is no pneumomediastinum. No pneumothorax or pleural effusion is present. No pulmonary contusion. No acute r ib or thoracic spine fractures are present. Multiple old left-sided rib fractures are noted. Small co ntusions within the lower neck and upper chest are present. There is hepatic steatosis. IMPRESSION: 1. No evidence for traumatic injury to the thoracic aorta. No pneumothorax. 2. No acute fractures within the thorax. 3. Small contusions within the lower neck and upper chest. 4. Distal esophageal wall thickening with minimal adjacent stranding. This favors esophagitis. 5. Hepatic steatosis. ACT 112: Negative or not required by law. Electronically signed by: Cristi Mora M.D. 11/04/2024 9:40 AM
--- NOTE | 2024-11-04 09:41 | CT Scan Report ---
CT cervical spine wo con CT DOSE: 3398.81 mGy.cm CLINICAL HISTORY: 59 years-old Female with recurrent falls, bruising, etoh. Acute head and neck inju ry status post fall COMPARISON: CT maxillofacial same day and also 12/14/2015 TECHNIQUE: Multiple axial CT images of the cervical spine were obtained without contrast. A dose low ering technique was utilized adhering to the principles of ALARA. FINDINGS: Multilevel degenerative changes including moderate disc space narrowing and spondylotic spu rring C4-C5, C5-C6 and C6-C7. Multilevel facet arthrosis. Severe facet arthrosis at C7-T1. No acute f racture, subluxation or endplate erosion identified. Multilevel neural foraminal narrowing is subopti radha assessed by CT technique. Left facial contusions. CT maxillofacial dictated separately. 1.2 x 1.5 cm left submandibular lymph n ode on image 232 series 10. This previously measured 1.3 x 0.8 cm. The visualized lung apices appear clear. IMPRESSION: 1. No acute cervical spine fracture or subluxation. 2. Left facial contusions. CT maxillofacial dictated separately. 3. Nonspecific 1.2 x 1.5 cm left submandibular lymph node has increased in size from the comparison 2 016 study. Attention on follow-up recommended. ACT 112: Negative or not required by law. The above report was generated using voice recognition software. It may contain grammatical, syntax o r spelling errors. Electronically signed by: Erasmo Martínez M.D. 11/04/2024 9:40 AM
--- NOTE | 2024-11-04 09:42 | XRay Report ---
XR chest 1V portable CLINICAL HISTORY: Trauma COMPARISON STUDY: Chest CT performed earlier today. FINDINGS: Lung volumes are normal. Lungs are clear. There is no pneumothorax or pleural effusion. Car diac size is normal. Mediastinal contours are normal. There is no evidence for pulmonary edema. IMPRESSION: No acute cardiopulmonary findings. ACT 112: Negative or not required by law. Electronically signed by: Cristi Mora M.D. 11/04/2024 9:41 AM
--- NOTE | 2024-11-04 09:47 | CT Scan Report ---
CT OF THE ABDOMEN AND PELVIS WITH CONTRAST CLINICAL HISTORY: recurrent falls, bruising, etoh COMPARISON STUDY: None. TECHNIQUE: Following IV administration of 94 mL of Optiray, axial images of the abdomen and pelvis we re obtained from the lung bases to the proximal femurs. Images were reviewed in the axial, sagittal, and coronal planes. IV contrast was administered without complication. Automated exposure control wa s utilized for the study. A dose lowering technique was utilized adhering to the principles of ALARA . FINDINGS: There is no evidence for traumatic injury to the liver, spleen, adrenal glands, kidneys or pancreas. Left upper pole renal scarring is present. There is hepatic steatosis. Circumferential wall thickening of the distal esophagus is present. Caliber and wall thickness of small and large bowel a re normal. The appendix is normal. Colonic diverticulosis is present. No evidence for acute diverticu litis. Bladder wall thickening is noted with mucosal hyperemia. Old bilateral pubic ring fractures ar e present. There is a right SI joint fusion. A minimally displaced fracture of the right transverse p rocess of L2 is age indeterminate. Additional right-sided transverse process fractures are chronic. T here are old left-sided rib fractures. There are suspected small contusions of the subcutaneous tissu es of the left flank. No active extravasation is identified. IMPRESSION: 1. No evidence for acute medical injury to the solid abdominal viscera. 2. Small subcutaneous contusions within the left flank. 3. Minimally displaced fracture of the right transverse process of L2. Although age indeterminate, th is is probably chronic. 4. Hepatic steatosis. 5. Distal esophageal wall thickening with minimal adjacent stranding. This favors esophagitis. ACT 112: Negative or not required by law. Electronically signed by: Cristi Mora M.D. 11/04/2024 9:46 AM
[2024-11-04] MEDS ORDERED: POTASSIUM PHOS 3 MMOL/1 ML INFUSION IV STA ×2 (10:23→19:48)
[2024-11-04 10:32] LABS: Appearance Urine Clear (Clear); Bacteria Urine Automated 4+ (None Seen); Bilirubin Urine Negative (Negative); Blood Urine 2+ (Negative); Cast Urine Automated 0-2 /lpf (0-2); Color Urine Yellow; Epithelial Cell Urine Auto 0-2 /hpf (0-2); Glucose Urine UA Negative (Negative); Ketones Urine 1+ (Negative); Leukocyte Esterase Urine Trace (Negative); Nitrite Urine Negative (Negative); Protein Urine Trace (Negative); RBC Urine Automated 0-2 /hpf (0-2); Specific Gravity Urine 1.006 (1.000-1.030); Urobilinogen Urine Negative (Negative); WBC Urine Automated 0-5 /hpf (0-5); pH Urine 6.5 (4.5-7.5)
[2024-11-04 11:16] LABS: Anion Gap 13 (3-11); BUN Creatinine Ratio 17.3 (10-20); Blood Urea Nitrogen 9 mg/dl (6-23); Calcium 8.4 mg/dl (8.6-10.3); Carbon Dioxide 21 mmol/L (21-32); Chloride 89 mmol/L (98-107); Creatinine Clr Calc Pharmacy 118.2 ml/min; Glucose 89 mg/dl (70-99(Fasting)); Sodium 123 mmol/L (136-145)
[2024-11-04] MEDS ORDERED: Ativan IV Alcohol Withdrawal--Active Protocol IV PRN (11:16)
[2024-11-04] MEDS ORDERED: LORazepam 2 MG/1 ML VIAL IV PRN ×3 (11:16)
[2024-11-04] MEDS ORDERED: GABAPENTIN 1200MG ALCOHOL WITHDRAWAL LOAD PO STA (11:16)
[2024-11-04] MEDS: LORazepam 2 MG/1 ML VIAL IV STA (11:27)
[2024-11-04] MEDS: POTASSIUM PHOSPHATE 15 MMOL in SODIUM CHLORIDE 0.9% 250 ML IV ONE (11:27)
[2024-11-04] MEDS: GABAPENTIN 600 MG TAB PO ONE (11:27)
[2024-11-04 11:30] LABS: Amphetamines+Metham, Urine Neg (Neg); Barbiturates, Urine Neg (Neg); Benzodiazepine, Urine Neg (Neg); Cocaine, Urine Neg (Neg); Fentanyl, Urine Neg (Neg); MDMA (Ecstacy), Urine Neg (Neg); Marijuana, Urine Neg (Neg); Methadone, Urine Neg (Neg); Opiate, Urine Neg (Neg); Phencyclidine, Urine Neg (Neg)
[2024-11-04] MEDS: Patient's ALLERGY Info needs ENTERED STA (11:37)
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
--- NOTE | 2024-11-04 12:08 | Nephrology Consultation ---
Date of Consultation November 04, 2024 Assessment & Plan (1) Hyponatremia: It appears new onset as upon review of [email or web address] system as well as [facility] EMR I did not see any hyponatremia in the past. it has been reported that she drinks a lot of beer and has known history of alcohol abuse. She also had history of seizure related with some medication issue. patient did not really talk to me so I could not really confirm her prior history. in any case sodium was 119 on admission today. After 1000 mL of normal saline it went up to 123 in about 4 hour time. however this was mostly a case of pseudohyponatremia as her serum osmolarity was actually high at 306. Her blood alcohol level was quite high which explains the elevated serum osmolarity with low serum sodium. so in summary there is no true hyponatremia. as her blood alcohol level goes down her serum sodium should go up. she has elevated total CK which means she does have mild rhabdomyolysis and for this reason we will give her IV fluid half-normal saline at 80 mL/hour. repeat blood alcohol level again as well as serum osmolarity to confirm the hypothesis (2) Hypophosphatemia: nutritional as she is drinking a lot of alcohol but not enough food. She is getting K-Phos intravenous at this time. (3) Hypokalemia: this is again nutritional and should get better with the K-Phos she is getting (4) Rhabdomyolysis: slightly elevated total CK at around 4000+ and should get better with IV fluid. She has had multiple falls in the recent days which explains the rhabdomyolysis Plan Case complexity moderately high. Involved review of records from multiple health systems and EMR. assessment and plan was discussed with primary service and in agreement multiple labs done at multiple time interval was reviewed and adjustment made accordingly. total time spent 62 minutes History of Present Illness Attending Physician: Ravin Arriaga DO History of Present Illness 59/F hypothyroidism, HTN, endometrial cancer s/p hysterectomy, anxiety, depression, ongoing alcohol abuse, who presented to the ED for evaluation of chest pain. She has been falling off and on for last few days and has multiple severe bruising over her entire body. Denies any loss of consciousness. she lives alone and is actively drinking alcohol. She has a longstanding history of alcohol abuse. Reports that she was at inpatient rehab over [place]. Had a visit at [facility] ER for seizure. Patient reports this was due to medication adjustments and not alcohol withdrawal. Patient reports she started drinking again shortly after arriving home from rehab. She did not really talk to me so H and P obtained from chart mainly. No family at bedside. Reported that she is drinking up to 10 beers per day. Patient reports she has a poor appetite however denies abdominal pain, nausea, vomiting, diarrhea. No fevers or chills. Denies urinary symptoms. In the ED, labs showed low na as low as 119 !! Got Ns and now is 123. Also low phosphorus 1.7 and getting K phos. elevated total CK 4500. CT head, facial, chest, C-spine, abdomen, pelvis unremarkable for acute injuries. CT chest shows evidence of esophagitis. ROS----She did not really talk to me so H and P obtained from chart mainly. No family at bedside. physical examination: middle-aged white female who appears flushed and is in distress anxious agitated mood. she did not answer my questions awake alert seems oriented but could not confirm the test chest bilateral clear to auscultation CVS S1 and S2 regular abdomen is soft nontender extremities without edema skin---- multiple bruises all over the body including the left chest and left flank area as well as periorbital Allergies Allergy/AdvReac Type Severity Reaction Status Date / Time No Known Allergies Allergy Verified 11/04/24 11:21 Home Medications Medication Instructions Recorded Confirmed Type trazodone 50 mg tablet 50 mg PO DAILY PRN insomnia #7 tabs 04/02/24 11/04/24 Rx bupropion HCl 300 mg 24 hr tablet, 300 mg PO QAM 11/04/24 11/04/24 History extended release gabapentin 300 mg capsule 300 mg PO HS 11/04/24 11/04/24 History hydroxyzine pamoate 50 mg capsule 50 mg PO TID PRN Anxiety 11/04/24 11/04/24 History lamotrigine 25 mg tablet 50 mg PO DAILY 11/04/24 11/04/24 History levothyroxine 125 mcg tablet 125 mcg PO DAILY 11/04/24 11/04/24 History lisinopril 5 mg tablet 5 mg PO DAILY 11/04/24 11/04/24 History propranolol 10 mg tablet 10 mg PO DAILY PRN general anxiety 11/04/24 11/04/24 History disorder venlafaxine 150 mg 150 mg PO DAILY 11/04/24 11/04/24 History capsule,extended release 24 hr venlafaxine 75 mg capsule,extended 75 mg PO DAILY 11/04/24 11/04/24 History release 24 hr Patient History Medical History Hypothyroidism HTN (hypertension) Endometrial cancer Depression Anxiety Surgical History History of cholecystectomy History of hysterectomy Social History Smoking Status: Never smoker Tobacco Type: Cigarettes Hx Alcohol Use: Yes Preferred Language: Khmer marital status: Feels Safe at Home: Yes Results & Data Vital Signs (Past 12 Hours) Vital Signs Temp Pulse Pulse Resp BP BP Pulse Ox 11/04/24 12:00 96 H 23 128/78 98 11/04/24 11:19 99 H 22 121/79 100 11/04/24 11:19 11/04/24 11:00 101 H 29 H 121/79 100 11/04/24 09:22 97 H 16 120/72 100 11/04/24 08:09 97 H 98 11/04/24 07:56 99 11/04/24 07:43 36.7 C 95 H 24 158/91 H 99 11/04/24 07:43 93 H Pulse Ox O2 Del Method O2 Del Method 11/04/24 12:00 Room Air 11/04/24 11:19 Room Air 11/04/24 11:19 100 Room Air 11/04/24 11:00 Room Air 11/04/24 09:22 Room Air 11/04/24 08:09 Room Air 11/04/24 07:56 Room Air 11/04/24 07:43 Room Air 11/04/24 07:43 Laboratory Results BMP blood alcohol level serum osmolarity serum phosphorus CBC urine Osm was all reviewed
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
[2024-11-04] MEDS: FOLIC ACID 1 MG TAB PO SCH (13:06)
[2024-11-04] MEDS: MULTIVITAMIN TAB PO SCH (13:06)
[2024-11-04] MEDS: PANTOprazole 40 MG/10 ML SYR IV STA (13:06)
[2024-11-04] MEDS: POTASSIUM CHLORIDE 20 MEQ/15 ML UDC PO STA (13:06)
[2024-11-04] MEDS: SODIUM CHLORIDE 0.45 % 1,000 ML IV SCH (13:07)
[2024-11-04] MEDS: SODIUM CHLORIDE 0.9% 500 ML IV SCH (13:20)
[2024-11-04 14:41] LABS: BUN Creatinine Ratio 16.4 (10-20); Calcium 8.3 mg/dl (8.6-10.3); Creatinine Clr Calc Pharmacy 111.7 ml/min; Potassium 3.9 mmol/L (3.5-5.1)
[2024-11-04] MEDS: GABAPENTIN 600 MG TAB PO SCH (17:20)
[2024-11-04 18:13] LABS: BUN Creatinine Ratio 14.3 (10-20); Calcium 8.5 mg/dl (8.6-10.3); Creatinine Clr Calc Pharmacy 97.6 ml/min; Magnesium 2.5 mg/dl (1.7-2.4); Potassium 3.7 mmol/L (3.5-5.1)
[2024-11-04 19:38] LABS: Phosphorus 1.9 mg/dl (2.5-4.9)
[2024-11-04] MEDS: POTASSIUM PHOSPHATE 30 MMOL in SODIUM CHLORIDE 0.9% 500 ML IV ONE (20:15)
[2024-11-05] MEDS: traZODone HCL 50 MG TAB PO ONE (00:12)
[2024-11-05 01:14] LABS: BUN Creatinine Ratio 15.9 (10-20); Creatinine Clr Calc Pharmacy 89.1 ml/min
[2024-11-05] MEDS: ACETAMINOPHEN 325 MG TAB PO PRN (02:28)
[2024-11-05] MEDS: LEVOTHYROXINE SODIUM 125 MCG TABLET PO SCH (06:33)
[2024-11-05 07:26] LABS: Albumin Globulin Ratio 1.2 (0.9-2); Albumin Level 3.6 gm/dl (3.4-5.0); BUN Creatinine Ratio 16.4 (10-20); Bilirubin,Total 1.4 mg/dl (0.2-1.0); Calcium 8.3 mg/dl (8.6-10.3); Creatinine Clr Calc Pharmacy 90.2 ml/min; Magnesium 2.6 mg/dl (1.7-2.4); Phosphorus 2.4 mg/dl (2.5-4.9); Potassium 3.9 mmol/L (3.5-5.1); Total Protein 6.6 gm/dl (6.0-8.3)
[2024-11-05] MEDS ORDERED: POTASSIUM PHOS 3 MMOL/1 ML INFUSION IV STA (07:46)
[2024-11-05 08:05] LABS: Hematocrit (blood only) 27.5 % (37.0-47.0); Hemoglobin 9.5 g/dl (12.0-16.0); Mean Corpuscular Hemoglobin 30.6 pg (25.0-34.0); Mean Corpuscular Hgb Conc 34.5 g/dL (32.0-36.0); Mean Corpuscular Volume 88.7 fL (80.0-100.0); Mean Platelet Volume 10.4 fL (9.4-12.4); Platelet Count 125 K/uL (130-400); RDW Coefficient of Variation 13.2 % (11.5-14.5); RDW Standard Deviation 41.8 fL (36.4-46.3); White Blood Count 8.35 K/ul (4.8-10.8)
[2024-11-05] MEDS: POTASSIUM PHOSPHATE 30 MMOL in SODIUM CHLORIDE 0.9% 500 ML IV ONE (08:35)
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
[2024-11-05] MEDS ORDERED: PANTOprazole 40 MG/10 ML SYR IV SCH (09:00)
[2024-11-05] MEDS: GABAPENTIN 600 MG TAB PO SCH (10:26)
[2024-11-05] MEDS: buPROPion XL 300 MG TABCR PO SCH (10:27)
[2024-11-05] MEDS: THIAMINE HCL 100 MG TAB PO SCH (10:28)
[2024-11-05] MEDS: VENLAFAXINE HCL XR 75 MG CAPXR PO SCH (10:28)
[2024-11-05] MEDS: lamoTRIgine 25 MG TAB PO SCH (10:28)
[2024-11-05] MEDS: PANTOprazole 40 MG TAB PO SCH (10:28)
[2024-11-05] MEDS: VENLAFAXINE HCL XR 150 MG CAPXR PO SCH (10:28)
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
[2024-11-05] MEDS: SODIUM CHLORIDE 0.9% 1,000 ML IV SCH (11:16)
--- NOTE | 2024-11-05 13:07 | Hospitalist Progress Note ---
Date of Service November 05, 2024 Assessment & Plan (1) Acute alcohol intoxication: (2) Alcohol withdrawal syndrome: (3) Alcoholic liver disease: (4) E. coli UTI: (5) Esophagitis: (6) Rhabdomyolysis: (7) Hypophosphatemia: (8) Hyponatremia: (9) Hypokalemia: (10) Alcohol abuse: (11) Contusion, multiple sites: (12) Hypothyroidism: Plan Patient presented with acute alcohol intoxication, multiple electrolyte abnormalities, rhabdomyolysis and multiple contusions in setting of alcohol misuse. Started to have withdrawal symptoms in the ED. Continue gabapentin taper to manage alcohol withdrawal Continue replace electrolytes Reviewed nephrology recommendations, continue IV hydration for rhabdomyolysis Reviewed GI consultation, continuing PPI, no indication for EGD this hospitalization. Outpatient follow-up for alcohol liver disease Raegan Epstein Check TSH in setting of hypothyroidism Discussed naltrexone treatment with the patient. She is agreeable, will start this prior to discharge and continue as an outpatient Case management to offer guidance and outpatient counseling Rocephin started for treatment of UTI follow cultures Admission and Anticipated Discharge Date Admission Date: November 04, 2024 Subjective Patient states that her withdrawal symptoms are well-managed. Reports that she was at [facility] for alcohol rehab in September. Not interested in going back into inpatient rehab. Has never tried naltrexone. Still complaining of significant chest and back pain associated with swallowing consistent with her esophagitis. Physical Exam Physical Exam: Constitutional: Alert, sitting in chair HEENT: Mucous membranes moist. Contusion left eye less swollen Lungs: Clear to auscultation, decreased, no wheezes rales or rhonchi CV: S1-S2, regular Abdomen: Soft, nontender, nondistended Extremities: No significant edema, multiple contusions on legs and arms Neuro: No focal deficits Psych: Cooperative, normal mood, depressed affect Results & Data Results & Data Vital Signs (Past 12 Hours) Vital Signs Temp Pulse Pulse Resp BP Pulse Ox O2 Del Method 11/05/24 12:11 97 H 11/05/24 11:26 36.9 C 97 H 16 137/84 99 Room Air 11/05/24 08:13 37.1 C 102 H 20 127/62 100 Room Air 11/05/24 02:20 36.9 C 114 H 18 129/84 99 Room Air Diagnostic Findings Reviewed imaging, laboratory and diagnostic studies. Pertinent findings as below. Urine culture growing greater than 100,000 colonies E. coli WBCs 8.3 Hemoglobin 9.5 Platelets of 125 Sodium 132 Potassium 3.9 Creatinine 0.67 LFTs reviewed Phosphorus 2.4 (6) Rhabdomyolysis Encounter type: initial encounter Rhabdomyolysis type: traumatic Qualified Code(s): T79.6XXA - Traumatic ischemia of muscle, initial encounter
[2024-11-05] MEDS: cefTRIAXone SODIUM 1,000 MG/50 ML BAG IV SCH (13:36)
[2024-11-05] MEDS ORDERED: traZODone HCL 50 MG TAB PO PRN (20:22)
--- NOTE | 2024-11-05 20:55 | Electrocardiogram Report ---
Test Reason : Blood Pressure : */* mmHG Vent. Rate : 95 BPM Atrial Rate : 95 BPM P-R Int : 168 ms QRS Dur : 82 ms QT Int : 360 ms P-R-T Axes : 42 -25 2 degrees QTcB Int : 453 ms Normal sinus rhythm Minimal voltage criteria for LVH, may be normal variant ( R in aVL ) Otherwise normal ECG No previous ECGs available Confirmed by Donta San ([id number]) on 11/05/2024 8:55:05 PM Referred By: REFERRED SELF Confirmed By: Donta San
[2024-11-05] MEDS: MELATONIN 3 MG TAB PO PRN (22:54)
[2024-11-05] MEDS: LORazepam 0.5 MG TAB PO PRN (22:54)
[2024-11-06 06:16] VITALS: RESP 18
[2024-11-06 06:55] LABS: Hematocrit (blood only) 24.3 % (37.0-47.0); Hemoglobin 8.4 g/dl (12.0-16.0); Mean Corpuscular Hemoglobin 32.2 pg (25.0-34.0); Mean Corpuscular Hgb Conc 34.6 g/dL (32.0-36.0); Mean Corpuscular Volume 93.1 fL (80.0-100.0); Mean Platelet Volume 9.9 fL (9.4-12.4); Nucleated RBC # (auto) 0.03 K/uL (0.00-0.12); Nucleated RBC % (auto) 0.6 %; Platelet Count 103 K/uL (130-400); RDW Coefficient of Variation 13.5 % (11.5-14.5); RDW Standard Deviation 45.1 fL (36.4-46.3); Red Blood Count 2.61 M/uL (4.20-5.40); White Blood Count 5.15 K/ul (4.8-10.8)
[2024-11-06 07:33] LABS: Calcium 7.9 mg/dl (8.6-10.3); Creatinine Clr Calc Pharmacy 120.8 ml/min; Phosphorus 2.2 mg/dl (2.5-4.9); Potassium 3.3 mmol/L (3.5-5.1)
[2024-11-06] MEDS ORDERED: POTASSIUM PHOS 3 MMOL/1 ML INFUSION IV STA (07:46)
[2024-11-06 07:49] LABS: Thyroid Stimulating Hormone 11.498 uIu/ml (0.300-4.500)
[2024-11-06 08:24] LABS: T4 Free Thyroxine 0.72 ng/dl (0.61-1.60)
[2024-11-06] MEDS: POTASSIUM CHLORIDE CRTAB 20 MEQ TABCR PO SCH (08:56)
[2024-11-06] MEDS: POTASSIUM PHOSPHATE 30 MMOL in SODIUM CHLORIDE 0.9% 500 ML IV ONE (08:56)
[2024-11-06] MEDS: NALTREXONE HCL 50 MG TAB PO SCH (09:54)
[2024-11-06] MEDS: LORazepam 1 MG TAB PO PRN (10:20)
[2024-11-06] MEDS: GABAPENTIN 600 MG TAB PO SCH (11:49)
--- NOTE | 2024-11-06 12:11 | Hospitalist Progress Note ---
Date of Service November 06, 2024 Assessment & Plan (1) Acute alcohol intoxication: (2) Alcohol withdrawal syndrome: (3) Alcoholic liver disease: (4) E. coli UTI: (5) Esophagitis: (6) Rhabdomyolysis: (7) Hypophosphatemia: (8) Hyponatremia: (9) Hypokalemia: (10) Alcohol abuse: (11) Contusion, multiple sites: (12) Hypothyroidism: Plan Patient steadily improving, withdrawal symptoms minimal. Continue gabapentin taper Discontinue naltrexone, patient never received a dose. She reports that it is not really true cravings that causes her to drink its loneliness. Suspect naltrexone would not be effective in this situation Continue trazodone at bedtime which patient reports significantly helps her with getting good rest Continue replace electrolytes Increase Synthroid dosing Patient anemia due to hypothyroidism and Nutritional deficits associated with her alcoholism. No evidence of acute blood loss Monitor electrolytes Anticipate discharge tomorrow if electrolytes improved Admission and Anticipated Discharge Date Admission Date: November 04, 2024 Subjective Patient significantly improved. Up and ambulating in her room. Minimal to no withdrawal symptoms. Concerned that she did not get her trazodone last night. This was held due to apparent interaction with naltrexone that was not ordered until this morning. Patient reports that she does not really have cravings she drinks alcohol because she is lonely. We discussed this further and feel that most likely the naltrexone would not benefit her since it is not really true cravings that she is dealing with. She is committed to outpatient counseling. Physical Exam Physical Exam: Constitutional: Alert, nontoxic HEENT: Mucous membranes moist. Facial bruising improving Lungs: Clear to auscultation, decreased, no wheezes rales or rhonchi CV: S1-S2, regular Abdomen: Soft, nontender, nondistended Extremities: No significant edema, bruising improving Neuro: No focal deficits Psych: Cooperative, normal mood Results & Data Results & Data Vital Signs (Past 12 Hours) Vital Signs Temp Pulse Resp BP Pulse Ox O2 Del Method 11/06/24 07:17 36.6 C 89 18 132/79 100 Room Air 11/06/24 05:30 36.8 C 83 18 111/63 97 Room Air 11/06/24 01:33 36.9 C 97 H 16 119/70 96 Room Air Diagnostic Findings Reviewed imaging, laboratory and diagnostic studies. Pertinent findings as below. Hemoglobin 8.4 Potassium 3.3 Phosphorus 2.2 Magnesium 2.0 TSH 11.4 (6) Rhabdomyolysis Encounter type: initial encounter Rhabdomyolysis type: traumatic Qualified C ode(s): T79.6XXA - Traumatic ischemia of muscle, initial encounter
[2024-11-06] MEDS: cephALEXin 500 MG CAP PO SCH (15:01)
[2024-11-06] MEDS: traZODone HCL 50 MG TAB PO SCH (20:25)
[2024-11-07 07:15] VITALS: BP 144/82; PULSE 92; TEMP 98.1; O2SAT 99
[2024-11-07 08:05] LABS: Hematocrit (blood only) 27.5 % (37.0-47.0); Hemoglobin 9.3 g/dl (12.0-16.0); Mean Corpuscular Hemoglobin 31.7 pg (25.0-34.0); Mean Corpuscular Hgb Conc 33.8 g/dL (32.0-36.0); Mean Corpuscular Volume 93.9 fL (80.0-100.0); Mean Platelet Volume 9.9 fL (9.4-12.4); Nucleated RBC # (auto) 0.03 K/uL (0.00-0.12); Nucleated RBC % (auto) 0.6 %; Platelet Count 145 K/uL (130-400); RDW Coefficient of Variation 13.9 % (11.5-14.5); RDW Standard Deviation 46.3 fL (36.4-46.3); Red Blood Count 2.93 M/uL (4.20-5.40); White Blood Count 5.34 K/ul (4.8-10.8)
[2024-11-07 08:32] LABS: BUN Creatinine Ratio 11.3 (10-20); Calcium 8.5 mg/dl (8.6-10.3); Phosphorus 2.9 mg/dl (2.5-4.9); Potassium 3.9 mmol/L (3.5-5.1)
--- NOTE | 2024-11-07 10:48 | Discharge Summary ---
Discharge Summary Date of Service November 07, 2024 Principal Dx & Hospital Course #1 = Principal Diagnosis (1) Acute alcohol intoxication: (2) Alcohol withdrawal syndrome: (3) Alcoholic liver disease: (4) E. coli UTI: (5) Esophagitis: (6) Rhabdomyolysis: (7) Hypophosphatemia: (8) Hyponatremia: (9) Hypokalemia: (10) Alcohol abuse: (11) Contusion, multiple sites: (12) Hypothyroidism: Plan Patient is a 59-year-old female known history of alcohol misuse. Presented to the emergency room intoxicated multiple contusions. While in the ED also had starting with some symptoms of alcohol withdrawal. Patient was admitted to the hospital. Placed on alcohol withdrawal protocol with gabapentin and as needed Ativan. Patient had multiple electrolyte abnormalities and was aggressively replaced throughout her hospitalization. Patient had some initial hyponatremia most likely due to her excessive beer intake. Nephrology consultation was obtained. She was given some IV hydration and her sodium normalized as she cleared the alcohol from her system. GI consultation was obtained as well. Imaging showed some significant esophagitis the patient was complaining of some significant chest pain of related to this. They will evaluate the patient recommend ongoing PPI treatment but no endoscopy indicated at this hospitalization. As she progressed through her hospitalization her withdrawal symptoms resolved. Her bruising was starting to heal. She was seen by case management and given information outpatient counseling. We discussed possible treatment with naltrexone. She does not really have cravings she drinks because she is lonely. Encouraged her to seek support groups and mentors to help her have provide not only some company but also to help her with her alcohol addiction. Day of discharge electrolytes are stabilized. Vital signs are stable. Withdrawal symptoms had improved and resolved. Was eating and drinking better as her esophagitis improved with treatment PPI. She be discharged home to follow-up with outpatient provider. Notes For Next Care Provider Recommend outpatient GI consultation Outpatient labs as recommended by GI: Outpatient Liver serology - ALPESH, AMA, ASMA - Acute hep panel - Iron screen, ferritin Medication Changes From Visit Propranolol scheduled to manage anxiety Multivitamin Protonix twice daily Admission HPI Per Admitting Provider 59-year-old female with PMH hypothyroidism, HTN, endometrial cancer s/p hysterectomy, anxiety, depression, alcohol abuse, and other problems listed below who presents to the ED for evaluation of chest pain. Patient reports developing midsternal chest pain yesterday that is radiating into her back. Denies any specific causative or relieving factors. Pain comes and goes. It is noted that patient has multiple severe bruising over her entire body. Reports that she has been falling. Denies any loss of consciousness. Patient was inquired about her safety at home, reports she lives alone. She reports she currently feels safe at home. Patient reports a longstanding history of alcohol abuse. Reports that she was at inpatient rehab over [place]. Had a visit at [facility] ER for seizure. Patient reports this was due to medication adjustments and not alcohol withdrawal. Patient reports she started drinking again shortly after arriving home from rehab. Reports she is drinking up to 10 beers per day. Patient reports she has a poor appetite however denies abdominal pain, nausea, vomiting, diarrhea. No fevers or chills. Denies urinary symptoms. In the ED, labs show WBC 11K, platelets 129K, Na+ 121, phosphorus 1.7, T. bili 1.8, AST 241, ALT 168, alk phos 201, total CK 4500. CT head, facial, chest, C-spine, abdomen, pelvis unremarkable for acute injuries. CT chest shows evidence of esophagitis. Patient was given IVF, IV thiamine. Admission Exam Per Admitting Provider See H&P Discharge Exam Constitutional: Alert HEENT: Mucous membranes moist. Contusion left thigh slowly improving Lungs: Clear to auscultation, decreased, no wheezes rales or rhonchi CV: S1-S2, regular Abdomen: Soft, nontender, nondistended Extremities: No significant edema, multiple contusions shoulder, chest, arms, legs all slowly improving Neuro: No focal deficits Psych: Cooperative, normal mood Updated Medication List Medication Instructions Recorded Confirmed Type bupropion HCl 300 mg 24 hr tablet, 300 mg PO QAM 11/04/24 11/04/24 History extended release gabapentin 300 mg capsule 300 mg PO HS 11/04/24 11/04/24 History lamotrigine 25 mg tablet 50 mg PO DAILY 11/04/24 11/04/24 History levothyroxine 125 mcg tablet 125 mcg PO DAILY 11/04/24 11/04/24 History lisinopril 5 mg tablet 5 mg PO DAILY 11/04/24 11/04/24 History propranolol 10 mg tablet 10 mg PO DAILY PRN general anxiety 11/04/24 11/04/24 History disorder venlafaxine 150 mg 150 mg PO DAILY 11/04/24 11/04/24 History capsule,extended release 24 hr venlafaxine 75 mg capsule,extended 75 mg PO DAILY 11/04/24 11/04/24 History release 24 hr cephalexin 500 mg capsule 500 mg PO TID 2 days #6 caps 11/07/24 Rx hydroxyzine pamoate 50 mg capsule 50 mg PO TID PRN Anxiety #30 caps 11/07/24 Rx levothyroxine 150 mcg tablet 150 mcg PO DAILY #30 tabs 11/07/24 Rx (Synthroid) multivitamin with folic acid 400 1 tab PO QAM #30 tabs 11/07/24 Rx mcg tablet (Daily-Humza (with folic acid)) trazodone 50 mg tablet 50 mg PO DAILY PRN insomnia #30 11/07/24 Rx tabs Hospital Stay Data Consultations 11/04/24 10:16 ED Decision to Admit Stat 11/04/24 11:16 Consult Gastroenterology Routine Consult Nephrology Routine Diagnostic Imagining Performed 11/04/24 08:01 CT abd pelvis IV con only Stat CT cervical spine wo con Stat CT chest diagnostic w con Stat CT face [CT facial bones wo con] Stat CT head/brain wo con Stat Reviewed imaging, laboratory and diagnostic studies. Pertinent findings as below. WBCs 5.3 Hemoglobin 9.3 Platelets of 145 Potassium 3.9 Sodium 136 Creatinine 0.53 Phosphorus 2.9 Magnesium 2.0 Pending Results Patient Have Any Pending Studies at Discharge: No Discharge Instructions Given to Patient (Per Discharging Provider) Strongly recommend you stop all beer and alcohol Strongly recommend you take medications as prescribed Total Time Total Time Spent Total Time Spent (In Minutes): 32
[2024-11-07] MEDS: INFLUENZA VACC TS2024-25(6m+)/PF (IIV3) 0.5mL Syr IM ONE (13:25)
[2024-11-08] MEDS ORDERED: GABAPENTIN 600 MG TAB PO SCH
== END 2024-11-07 14:23 | disposition home or self-care (01) | DRG 897 ==
LOC: ED 07:37 → EDINP 10:27 → 2E 11:17 → 3W 11-05 16:41

== ENCOUNTER 2025-01-07 14:52 | Inpatient (IN) ==
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
[2025-01-07 15:35] LABS: Appearance Urine Clear (Clear); Bilirubin Urine Negative (Negative); Blood Urine Negative (Negative); Color Urine Yellow; Glucose Urine UA Negative (Negative); Ketones Urine Trace (Negative); Leukocyte Esterase Urine 1+ (Negative); Nitrite Urine Positive (Negative); Protein Urine 1+ (Negative); Specific Gravity Urine 1.025 (1.000-1.030); Urobilinogen Urine Negative (Negative)
[2025-01-07] MEDS: LORazepam 1 MG TAB PO STA (15:41)
[2025-01-07] MEDS: SODIUM CHLORIDE 0.9% 1,000 ML IV ONE (15:41)
[2025-01-07] MEDS: ONDANSETRON INJ 2 MG/ML 2 ML VIAL IV STA (15:41)
[2025-01-07 15:47] LABS: RBC Urine 0-2 /hpf (0-2); WBC Urine 0-5 /hpf (0-5)
[2025-01-07 15:48] LABS: Bacteria Urine 3+ (None Seen)
[2025-01-07] MEDS: LORazepam 2 MG/1 ML VIAL IV STA ×2 (16:23→18:17)
[2025-01-07 16:40] LABS: Basophils # (auto) 0.05 K/uL (0.00-0.20); Basophils % (auto) 0.9 %; Eosinophils # (auto) 0.14 K/uL (0.00-0.50); Eosinophils % (auto) 2.4 %; Hematocrit (blood only) 41.5 % (37.0-47.0); Hemoglobin 14.6 g/dl (12.0-16.0); Immature Granulocytes # (auto) 0.02 K/uL (0.01-0.20); Immature Granulocytes % (auto) 0.3 %; Lymphocytes # (auto) 1.89 K/uL (1.20-3.40); Lymphocytes % (auto) 32.3 %; Mean Corpuscular Hemoglobin 30.8 pg (25.0-34.0); Mean Corpuscular Hgb Conc 35.2 g/dL (32.0-36.0); Mean Corpuscular Volume 87.6 fL (80.0-100.0); Mean Platelet Volume 10.3 fL (9.4-12.4); Monocytes # (auto) 0.77 K/uL (0.11-0.59); Monocytes % (auto) 13.1 %; Neutrophils # (auto) 2.99 K/uL (1.40-6.50); Platelet Count 218 K/uL (130-400); RDW Coefficient of Variation 12.3 % (11.5-14.5); RDW Standard Deviation 39.5 fL (36.4-46.3); Red Blood Count 4.74 M/uL (4.20-5.40); White Blood Count 5.86 K/ul (4.8-10.8)
[2025-01-07 17:05] LABS: Albumin Globulin Ratio 1.1 (0.9-2); Albumin Level 3.5 gm/dl (3.4-5.0); BUN Creatinine Ratio 19.8 (10-20); Bilirubin,Total 1.8 mg/dl (0.2-1.0); Calcium 7.8 mg/dl (8.6-10.3); Creatinine Clr Calc Pharmacy 61.5 ml/min; Globulin 3.1 gm/dl (2.5-4.0); Potassium 3.6 mmol/L (3.5-5.1); Total Protein 6.6 gm/dl (6.0-8.3)
[2025-01-07 17:10] LABS: Acetaminophen < 3 ug/ml (10-30); Salicylate < 3.0 mg/dl (3.0-30)
[2025-01-07 17:18] LABS: Thyroid Stimulating Hormone 3.532 uIu/ml (0.300-4.500)
[2025-01-07 17:45] LABS: Amphetamines+Metham, Urine Neg (Neg); Barbiturates, Urine Neg (Neg); Benzodiazepine, Urine Neg (Neg); Cocaine, Urine Neg (Neg); Fentanyl, Urine Neg (Neg); MDMA (Ecstacy), Urine Pos (Neg); Marijuana, Urine Neg (Neg); Methadone, Urine Neg (Neg); Opiate, Urine Neg (Neg); Phencyclidine, Urine Neg (Neg)
[2025-01-07] MEDS: METOCLOPRAMIDE HCL INJ 5 MG/ML 2 ML VIAL IV STA (17:47)
[2025-01-07] MEDS: cefTRIAXone SODIUM 2,000 MG/50 ML BAG IV STA (17:57)
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
[2025-01-07 19:02] LABS: INR 1.2 (0.9-1.1); Partial Thromboplastin Time 26 Seconds (21-31); Prothrombin Time 12.6 Seconds (9.0-12.0)
[2025-01-07] MEDS: THIAMINE HCL 100 MG TAB PO ONE (19:32)
--- NOTE | 2025-01-07 20:07 | Ultrasound Report ---
Clinical history: Elevated liver function tests Technique: Sonography was performed of the right upper quadrant of the abdomen Findings: There is fatty infiltration of the liver. No definite liver mass is seen. There is normal directional flow in the main portal vein The gallbladder has been removed. There is no intrahepatic or extrahepatic bile duct dilatation. The common bile duct measures 6 mm The right kidney measures 11 cm in length. There is no hydronephrosis. No definite renal calculus or mass is seen The visualized pancreas, aorta, and IVC appear unremarkable. No ascites is seen Impression: 1. Fatty infiltration of the liver 2. Prior cholecystectomy Electronically signed by Alex Mcginnis 01-07-2025 7:57 PM
[2025-01-07] MEDS ORDERED: Ativan PO Alcohol Withdrawal--Active Protocol PO PRN (20:17)
[2025-01-07] MEDS ORDERED: ONDANSETRON INJ 2 MG/ML 2 ML VIAL IV PRN (20:17)
[2025-01-07] MEDS ORDERED: LORazepam 1 MG TAB PO PRN ×2 (20:17)
[2025-01-07] MEDS: LORazepam 1 MG TAB PO PRN (20:39)
[2025-01-07] MEDS: HEPARIN SOD 5,000 UNIT/0.5 ML VIAL SQ SCH (20:39)
[2025-01-07] MEDS: GABAPENTIN 300 MG CAP PO SCH (21:47)
--- OUTSIDE RECORDS SUMMARY | 2025-01-08 01:01 | External Medical Summary | Summary of Care ---
Author Name Unknown Organization [facility] Address [address] [place] [address] Phone [phone] Care Team Providers Care Ski Tow Operator Name Role Phone Bonita Mares MD Primary Care Provider [phone] Reason for Visit * Reason Onset Date Comments Test Results 12/09/2024 Encounter Details Date Type Department Care Team ([facility] st Contact Info) Description 12/09/2024 Telephone General Internal Medicine [facility] [address] [facility] [place] [address] Hayley Rojas PA-C [address] [facility] [place] [address] Test Results Allergies Active Allergy Reactions Criticality Noted Date Comments Aspartame Medium 05/31/2011 Mental confusion Flavoring Agent (Non-Screening) Medium 03/03 Mental confusion documented as of this encounter (statuses as of 12/25/2024) Medications Cholecalciferol (VITAMIN D3) 50 MCG (1999) CapsuleIndications :Low serum vitamin D Take 1 Cap by mouth daily. 90 Cap 1 08/11/20 19 Active Fish Oil 1000 MG Oral Capsule Take 1 Capsule by mouth in the morning. Active Melatonin 1 MG Oral Tablet Take 1 Tablet by mouth at bedtime. Active Benefiber Oral PowderIndications: Constipation, unspecified constipation type Take 1 Tbsf in a glass of water daily 03/12/20 24 Active Gabapentin 300 MG Oral Capsule (Neurontin) Take 1 Capsule by mouth at bedtime. 90 Capsule 08/11/20 24 Active buPROPion HCl ER (XL) 300 MG Oral Tablet Extended Release 24 Hour (Wellbutrin XL)Indications:Mod erate episode of recurrent major depressive disorder (HCC) Take 1 Tablet by mouth in the morning. 90 Tablet 08/13/20 24 Active Venlafaxine HCl ER 150 MG Oral Capsule Extended Release 24 Hour (Effexor XR)Indications:Dep ression with anxiety TAKE 1 CAPSULE BY MOUTH ONCE DAILY ALONG WITH 75MG (DO NOT CUT, CRUSH OR CHEW) 90 Capsule 09/26/19 25 Active Venlafaxine HCl ER 75 MG Oral Capsule Extended Release 24 Hour (Effexor XR)Indications:Mil d episode of recurrent major depressive disorder (HCC) TAKE 1 CAPSULE BY MOUTH ONCE DAILY ALONG WITH 150MG (DO CUT, CRUSH OR CHEW) 90 Capsule 09/26/19 25 Active hydrOXYzine HCl 50 MG Oral TabletIndications: ZOILA (generalized anxiety disorder) Take 1 Tablet by mouth 3 times a day as needed for Anxiety. 90 Tablet 11/14/19 25 Active Propranolol HCl 10 MG Oral Tablet (Inderal)Indicatio ns:ZOILA (generalized anxiety disorder) Take 1 Tablet by mouth daily as needed for Anxiety. 30 Tablet 11/14/19 25 Active Pantoprazole Sodium 20 MG Oral Tablet Delayed Release (Protonix)Indicati ons:Esophagitis Take 1 Tablet by mouth in the morning and 1 Tablet before bedtime. 60 Tablet 11/14/19 25 Active Lisinopril 5 MG Oral Tablet (Prinivil)Indicati ons:HTN, goal below 140/90 Take 1 Tablet by mouth in the morning. 30 Tablet 11/14/19 25 Active traZODone HCl 50 MG Oral Tablet (Desyrel)Indicatio ns:Insomnia, unspecified type TAKE 1 TABLET BY MOUTH AT BEDTIME NEEDED FOR SLEEP 90 Tablet 12/02/19 25 Active Levothyroxine Sodium 125 MCG Oral Tablet (Levoxyl)Indicatio ns:Acquired hypothyroidism Take 1 Tablet by mouth daily first thing in the morning. (at least 30 min prior to breakfast or other meds) 90 Tablet 12/02/19 25 Active Levothyroxine Sodium 112 MCG Oral Tablet (Levoxyl) Take 1 Tablet by mouth in the morning. (at least 30 min prior to breakfast or other meds)-per [facility] DrMaxin. 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 ZOILA (generalized anxiety disorder) 02/08/2024 Alcohol abuse 08/31/2022 BMI 32.0-32.9,adult 05/18/2021 Overview (08/01/2023): 33 Panic disorder 12/26/2016 Acquired hypothyroidism 09/27/2012 Mild episode of recurrent major depressive disor philipp HTN, goal below 140/90 documented as of this encounter (statuses as of 12/25/2024) Resolved Problems Problem Noted Date Diagnosed Date Resolved Date Endometrial cancer 08/01/2023 Cancer Staging:Clinical stage from 09/24/2023:FIGO Stage IA(cT1a, cN0(sn), cM0) - Signed by Shreyas Martinez MD on 09/28/2023 MEDICATION USE AGREEMENT 11/16/201602/2018 History of lower [...] as of this encounter (statuses as of 12/25/2024) Immunizations Name Administration Dates Next Due Seasonal [...] ages 0-17 years) Not on file 03/18/2024 Food Insecurity Answer Date Recorded Within the past 12 months, y ou worried that your food would run out before you got the money to buy more. Never true 03/18/20 24 Within the past 12 months, t he food you bought just didn't last and you didn't have money to get more. Never true 03/18/2024 Do you need food for this week? No 03/18/2024 Comments No Sex and Gender Information Value Date Recorded Sex Assigned at Female 07/17/2019 6:18 PM EST Legal Sex Female 5:56 AM EST Gender Identity Female 07/17/2019 6:18 PM EST Sexual Orientation Choose not to disclose 2018 6:18 PM EST Occupation Industry Job Start Date Job End Date [employer] WORK[employer] Not on file Not on file Not on file documented as of this encounter Miscellaneous Notes * Telephone Encounter - Ernesto Tucker RN - 12/25/2024 10:05 AM EDT Called patient and informed her of Hayley's previous message. She verbalized understanding of all information and is agreeable. * Telephone Encounter - Hayley Rojas PA-C - 12/25/2024 9:55 AM EDT Would recommend dropping down to 125 mcg if she has been taking 150 mcg daily. * Telephone Encounter - Ernesto Tucker RN - 12/25/2024 9:34 AM EDT Called patient and informed her of Hayley's message below. Patient said she is currently taking the 150 mcg and that is what she has been taking recently. 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 Please advise. "Went back and reviewed the note. It looks like 125 mcg was sent on 12/01. What does of the levothyroxine has she been taking recently? The 150 mcg or 125 mcg?" * Telephone Encounter - Renee Ivy LPN - 12/15/2024 12:18 PM EDT Attempted to call patient, please transfer to DNL when patient returns call. Also sent myG message to patient as well. * Telephone Encounter - Gwendolyn Goyal LPN - 12/12/2024 1:16 PM EDT Attempted to call patient, there was no answer, left voicemail. When patient returns call, transfer to dedicated nurse line. What dose of levothyroxine has pt been taking * Telephone Encounter - Bárbara Peterson OSA - 12/12/2024 12:48 PM EDT Valerie is calling back regarding the thyroid medicine. She will check with her pharmacy to make sure they got the 100 mcg prescription. If not, will call back. Thank you * Telephone Encounter - Tania Mcrae LPN - 12/11/2024 8:28 AM EDT Left message for patient to call back regarding message, transfer to a dedicated nurse line Went back and reviewed the note. It looks like 125 mcg was sent on 12/01. What does of the levothyroxine has she been taking recently? The 150 mcg or 125 mcg? * Telephone Encounter - Hayley Rojas PA-C - 12/11/2024 8:09 AM EDT Went back and reviewed the note. It looks like 125 mcg was sent on 12/01. What does of the levothyroxine has she been taking recently? The 150 mcg or 125 mcg? * Telephone Encounter - Latrice Bundy LPN - 12/10/2024 2:36 PM EDT Patient calling. Given message. Verbalized understanding. Patient is going to the pharmacy today. Asking if the 112 mcg is sent? On 12/01/24 125 mcg was sent. Is this correct? Please call the patient back. * Telephone Encounter - Iván Ontiveros OSA - 12/10/2024 2:30 PM EDT Reason for patient's call: Patient returning call. Caller was transferred to [facility] at the nurse line. * Telephone Encounter - Ernesto Tucker RN - 12/09/2024 3:23 PM EDT Called, left message for patient to return call to the dedicated nurse call center. Please see Hayley's previous messages. * Telephone Encounter - Hayley Rojas PA-C - 12/09/2024 3:19 PM EDT Noted pt's levothyroxine was just decreased to 112 mcg by PCP--disregard below message regarding adjusting the dosage further. * Telephone Encounter - Ernesto Tucker RN - 12/09/2024 3:17 PM EDT ----- Message from Hayley Rojas sent at 12/09/2024 3:16 PM EDT ----- Noted pt's TSH is low--meaning it is being over treated with the levothyroxine. Would recommend bumping the dose down to 100 mcg. Rx sent to pharmacy. Also noted Vit d level insufficient. Is she still currently taking the Vit D supplement 2000 iu daily? Otherwise her labs looked good. documented in this encounter Plan of Treatment Upcoming Encounters Date Type Department Care Team (Late st Contact Info) Description 01/01/2025 1:00 PM EDT Office Visit General Internal Medicine [facility] [address] [facility] [place] [address] Bonita Mares MD [address] [facility] [place] [id number] Health Maintenance Due Date Last Done Comments Pneumococcal Vaccine: 50+ Years (1 of 2 - PCV) 1982 HPV/Co-Test 1993 Cologuard 2008 Colonoscopy 2008 Colorectal Cancer Screening 2008 Fecal Occult Blood Test 2008 Sigmoidoscopy 2008 Cervical Cancer Screening 03/15/2023 Pap Smear 03/15/2023 03/15/2020, 02/01, 05/31/2011, Additional history exists COVID-19 Vaccine ( season) 2024 Mammogram 02/11/2025 02/12/2024, 02/01, 06/06/2022, Additional history exists Depression Monitoring 03/13/2025 03/13/2024 Influenza Vaccine (FLU shot) (Season Ended) 2025 05/22/2022, 05/17/2020, 07/17/2019, Additional history exists Albumin/Creatinine Ratio 06/02/2025 06/02/2022 GFR 12/09/2025 12/09/2024, 09/03, 06/26/2023, Additional history exists TSH 12/09/2025 12/09/2024, 06/04, 06/02/2022, Additional history exists DTap/Tdap Vaccines (3 - Td or Tdap) 04/16/2026 04/16/2016, 07/06/2009 Diabetes Screening 12/10/2027 12/09/2024, 0 09/19/2023, 06/26/2023, Additional history exists Lipid Panel 12/09/2029 12/09/2024, 06/04, 12/28/2021, Additional history exists Zoster Vaccines Completed 01/21/2021, 05/17/2020 HPV (Gardasil) Vaccine Aged Out No lo nger eligible based on patient's age to complete this topic Hepatitis B Vaccine Aged Out No longe r eligible based on patient's age to complete this topic MENINGOCOCCAL (MENACTRA/MENVEO) Aged Out No longer eligible based on patient's age to complete this topic Meningitis B Vaccine (Bexsero/Trumemba) Aged Out No longer eligible based on [...] patient or by statute hierarchy) Care Teams Ski Tow Operator Relationship Specialty Start Date End Date Bonita Mares MD [address] [place] [address] PCP - General Internal Medicine 12/28/15 documented as of this encounter
--- OUTSIDE RECORDS SUMMARY | 2025-01-08 01:01 | External Medical Summary ---
Author Name Unknown Address Unknown Organization [id number]:[facility] [address] [place] [address] Laboratory Report Ordering Provider Test Date Status BENITO NORTON 12/09/2024 09:27:45 Final Observation Date Value Abnormality Reference (Units ) Status T4, Free 12/09/2024 09:27:45 1.7 0.9-1.7 (n g/dL) Final Performing Location [facility] - [address] [place] [address]
--- OUTSIDE RECORDS SUMMARY | 2025-01-08 01:01 | External Medical Summary ---
Author Name Unknown Address Unknown Organization [id number]:[facility] - [address] [facility] [address] Laboratory Report Ordering Provider Test Date Status YENNIFER GODINEZ 12/09/2024 09:27:45 Final Observation Date Value Abnormality Reference (Units ) Status Triglyceride 12/09/2024 09:27:45 102 <=174 ( mg/dL) Final Triglyceride Reference Range s (mg/dL):
<150 Acceptable
150-174 Borderline high
175-499 High
>=500 Very high Cholesterol 12/09/2024 09:27:45 174 <200 (mg /dL) Final Total Cholesterol Reference Ranges (mg/dL):
<200 Desirable
200-239 Borderline high
>=240 High HDL 12/09/2024 09:27:45 51 >49 (mg/dL ) Final HDL Cholesterol Reference Ra nges (mg/dL):
>=60 High (Desirable)
<50 Low (Undesirable) For Females
<40 Low (Undesirable) For Males NON-HDL CHOLESTEROL 12/09/2024 09:27:45 123 <=159 (mg/dL) Final Non-HDL Cholesterol Referenc e Range (mg/dL):
<100 Target level for high risk ASCVD patient
<130 Optimal for general population
130-159 Near optimal for general population
160-189 Borderline High
190-219 High
>=220 Very High LDL, (calculated) 12/09/2024 09:27:45 103 <= 129 (mg/dL) Final LDL Cholesterol Reference Ra nges (mg/dL):
<70 Target level for high risk ASCVD patient
<100 Optimal for general population
100-129 Near optimal for general population
130-159 Borderline high
160-189 High
>=190 Very high
Patient has high LDL cholesterol. Consider screening for Familial Hypercholesterolemia. Performing Location [facility] - [address] [facility] [address]
--- OUTSIDE RECORDS SUMMARY | 2025-01-08 01:01 | External Medical Summary ---
Author Name Unknown Address Unknown Organization [id number]:[facility] [address] [facility] [address] Laboratory Report Ordering Provider Test Date Status BENITO NORTON 12/09/2024 09:27:45 Final Observation Date Value Abnormality Reference (Units ) Status Nuclear IgG Ab [Ratio] in Serum by Immunoassay 12/09/2024 09:27:45 Negative Negative Final DNA double strand Ab [Presence] in Serum 12/09/2024 09:27:45 Negative Negative Final DOUBLE STRANDED DNA VALUE - [facility] 12/09/2024 09:27:45 1.4 <20 (IU/mL) Final Extractable nuclear Ab [Presence] in Serum 12/09/2024 09:27:45 Negative Negative Final Nuclear IgG Ab [Ratio] in Serum by Immunoassay 12/09/2024 09:27:45 0.5 <0.7 (Ratio) Final Screening is based on detect ion of the following antibodies: dsDNA, U1-COMMISSARY HELPER (RNP70, A, C), SS-A/Ro, SS-B / La, Audra-1, Scl-70, Centromere B proteins and Sm proteins. In conjunction with clinical findings, this can aid in the diagnosis of systemic lupus erythematosous (SLE), mixed connective tissue disease (MCTD), Sjogren's syndrome, scleroderma and polymyositis/dermatomyositis.
However, a negative result does not rule out systemic rheumatic or other autoimmune disease. If clinically suspected, further evaluation and testing may be necessary. Please consult with Rheumatology Department.
Methodology: Fluorescent Enzyme Immunoassay. Performing Location LABORATORY [address] [facility] [address]
--- OUTSIDE RECORDS SUMMARY | 2025-01-08 01:01 | External Medical Summary | Summary of Care ---
Author Name Unknown Organization [facility] Address [address] [place] [address] Phone [phone] Care Team Providers Care Extract Mixer Name Role Phone Bonita Mares MD Primary Care Provider [phone] Reason for Visit * Reason Comments Outpatient Testing Encounter Details Date Type Department Care Team (Latest Contact Info) Description 12/09/2024 9:10 AM EDT Laboratory [facility] [place] [address] [place] [phone] [place], Lab Scenery [address] [place] [address] Endometrial intraepithelial neoplasia (EIN); HTN, goal below 140/90; Acquired hypothyroidism; Vitamin D deficiency; Alcoholic liver disease (HCC); Esophagitis; Electrolyte imbalance Allergies Active Allergy Reactions Criticality Noted Date Comments Aspartame Medium 05/31/2011 Mental confusion Flavoring Agent (Non-Screening) Medium 03/03 Mental confusion documented as of this encounter (statuses as of 12/09/2024) Medications Cholecalciferol (VITAMIN D3) 50 MCG (1999) [...] meds)-per CVIM Aisha. 90 Tablet 4 Active Gabapentin 300 MG Oral Capsule (Neurontin) Take 1 Capsule by mouth at bedtime. 90 Capsule 4 Active buPROPion HCl ER (XL) 300 [...] CRUSH OR CHEW) 90 Capsule 5 Active hydrOXYzine HCl 50 MG Oral TabletIndications: ZOILA (generalized anxiety disorder) Take 1 Tablet by mouth 3 times a day as needed for Anxiety. 90 Tablet 5 5 Active Propranolol HCl 10 MG Oral Tablet (Inderal)Indicatio ns:ZOILA (generalized anxiety disorder) Take 1 Tablet by mouth daily as needed for Anxiety. 30 Tablet 5 5 Active Pantoprazole Sodium 20 MG Oral Tablet Delayed Release (Protonix)Indicati ons:Esophagitis Take 1 Tablet by mouth in the morning and 1 Tablet before bedtime. 60 Tablet 5 5 Active Lisinopril 5 MG Oral Tablet (Prinivil)Indicati ons:HTN, goal below 140/90 Take 1 Tablet by mouth in the morning. 30 Tablet 5 5 Active traZODone HCl 50 MG Oral Tablet (Desyrel)Indicatio ns:Insomnia, unspecified type TAKE 1 TABLET BY MOUTH AT BEDTIME NEEDED FOR SLEEP 90 Tablet 5 Active Levothyroxine Sodium 125 MCG Oral Tablet (Levoxyl)Indicatio ns:Acquired hypothyroidism Take 1 Tablet by mouth daily first thing in the morning. (at least 30 min prior to breakfast or other meds) 90 Tablet 5 Active documented as of this encounter (statuses as of 12/09/2024) Active Problems Problem Noted Date Diagnosed Date 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 ZOILA (generalized anxiety disorder) 02/08/2024 Alcohol abuse 08/31/2022 BMI 32.0-32.9,adult 05/18/2021 Overview (08/01/2023): 33 Panic disorder 12/26/2016 Acquired hypothyroidism 09/27/2012 Mild episode of recurrent major depressive disor philipp HTN, goal below 140/90 documented as of this encounter (statuses as of 12/09/2024) Resolved Problems Problem Noted Date Diagnosed Date [...] as of this encounter (statuses as of 12/09/2024) Immunizations Name Administration Dates Next Due Seasonal [...] 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 * Result Encounter Note - Hayley Rojas PA-C - 12/09/2024 10:13 AM EDT CBC normal. documented in this encounter Plan of Treatment Upcoming Encounters Date Type Department Care Team (Late st Contact Info) Description 12/18/2024 1:00 PM EDT Office Visit Gastroenterology, [facility] [address] [place] [phone] Sharon Barraza PA-C [address] [place] [address] 01/01/2025 1:00 PM EDT Office Visit General Internal Medicine [employer] [address] [facility] [place] [address] Bonita Mares MD [address] [facility] [place] [address] Pending Results Name Type Priority Associated Diagnoses Date /Time LIPID PANEL WITH DIRECT LDL IF TG IS HIGH Lab Routine HTN, goal below 140/90 12/09/2024 9:27 AM EDT 25-HYDROXY VITAMIN D Lab Routine Vitamin D deficiency 12/09/2024 9:27 AM EDT ANTINUCLEAR ANTIBODY (ALPESH) EIA SCREEN WITH REFLEX AB QUANT Lab Routine Alcoholic liver disease (HCC) 12/09/2024 9:27 AM EDT ACUTE HEPATITIS PANEL Lab Routine Alcoholic liver disease (HCC) 12/09/2024 9:27 AM EDT IRON SCREEN, INCLUDING TIBC Lab Routine Alcoholic liver disease (HCC) Esophagitis 12/09/2024 9:27 AM EDT TSH WITH FREE T4 IF INDICATED Lab Routine Acquired hypothyroidism 12/09/2024 9:27 AM EDT ANTINUCLEAR ANTIBODY (ALPESH) SCREEN, DEYSI Lab Routine Alcoholic liver disease (HCC) 12/09/2024 9:27 AM EDT Health Maintenance Due Date Last Done Comments Pneumococcal Vaccine: 50+ Years (1 of 2 - PCV) 1982 HPV/Co-Test 1993 Cologuard 2008 Colonoscopy 2008 Colorectal Cancer Screening 2008 Fecal Occult Blood Test 2008 Sigmoidoscopy 2008 Cervical Cancer Screening 03/15/2023 Pap Smear 03/15/2023 03/15/2020, 02/01, 05/31/2011, Additional history exists COVID-19 Vaccine ( season) 2024 TSH 06/26/2024 06/26/2023, 05/06, 12/28/2021, Additional history exists Mammogram 02/11/2025 02/12/2024, 02/01, 06/06/2022, Additional history exists Depression Monitoring 03/13/2025 03/13/2024 Influenza Vaccine (FLU shot) (Season Ended) 2025 05/22/2022, 05/17/2020, 07/17/2019, Additional history exists Albumin/Creatinine Ratio 06/02/2025 06/02/2022 GFR 12/09/2025 12/09/2024, 09/03, 06/26/2023, Additional history exists DTap/Tdap Vaccines (3 - [...] Not on filedocumented as of this encounter Procedures Procedure Name Priority Date/Time Associated Diagnosis Comments COMPREHENSIVE METABOLIC PANEL Routine 12/09/2024 9:27 AM EDT HTN, goal below 140/90 Endometrial intraepithelial neoplasia (EIN) CBC Routine 12/09/2024 9:27 AM EDT Endometrial intraepithelial neoplasia (EIN) documented in this encounter Results * COMPREHENSIVE METABOLIC PANEL (12/09/2024 9:27 AM EDT) BUN 12 6 - 20 mg/dL 12/09/2024 10:38 AM EDT [facility] [place] 56-02 CREATININE 0.7 0.5 - 1.0 mg/dL 12/09/2024 10:38 AM [facility] 56-02 EGFR >90 >=60 mL/min 12/09/2024 10:38 AM [facility] 56 Comment:eGFR is calculated b ased on the CKD-EPI 2020 equation. SODIUM 140 135 - 146 mmol/L 12/09/2024 10:38 AM [facility] 56 POTASSIUM 4.3 3.5 - 5.1 mmol/L 12/09/2024 10:38 AM [facility] 56 CHLORIDE 104 98 - 107 mmol/L 12/09/2024 10:[address] CO2 27 22 - 32 mmol/L 12/09/2024 10:[address] ANION GAP 9 7 - 15 mmol/L 12/09/2024 10:[address] GLUCOSE 78 70 - 120 mg/dL 12/09/2024 10:[address] Albumin 4.2 3.8 - 5.0 g/dL 12/09/2024 10:[address] AST 21 10 - 35 U/L 12/09/2024 10:[address] Alkaline Phosphatase 90 35 - 130 U/L 12/09/2024 10:[address] Bilirubin, Total 0.5 <=1.2 mg/dL 12/09/2024 10:38 AM [facility] 56 CALCIUM 9.9 8.4 - 10.2 mg/dL 12/09/2024 10:[address] Protein 7.5 6.0 - 8.3 g/dL 12/09/2024 10:38 AM [facility] 56 ALT 18 10 - 35 U/L 12/09/2024 10:38 AM [facility] 56 Blood Venous blood specimen / Unknown Venipuncture / Unknown 12/09/2024 9:27 AM EDT 12/09/2024 9:28 AM EDT us Bonita Mares MD LAB BLOOD ORDERABLES Final Res ult [facility] 56 [address] [place] [address] * CBC (12/09/2024 9:27 AM EDT) WBC 5.86 4.00 - 10.80 K/uL 12/09/2024 9:51 AM EDT [facility] 56- RBC 4.07 3.85 - 5.15 M/uL 12/09/2024 9:51 AM EDT [facility] 56 HGB 12.9 12.0 - 15.3 g/dL 12/09/2024 9:51 AM EDT [facility] 56 HCT 39.9 36.0 - 45.2 % 12/09/2024 9:51 AM EDT [facility] 56 MCV 98.0 81.5 - 97.5 fL 12/09/2024 9:51 AM EDT [facility] 56 MCH 31.7 27.0 - 34.0 pg 12/09/2024 9:51 AM EDT [facility] 56 MCHC 32.3 32.0 - 36.0 g/dL 12/09/2024 9:51 AM EDT [facility] 56 RDW 13.0 11.5 - 15.5 % 12/09/2024 9:51 AM EDT [facility] 56 PLT 216 140 - 400 K/uL 12/09/2024 9:51 AM EDT [facility] 56 MPV 11.0 6.6 - 11.1 fL 12/09/2024 9:51 AM EDT [facility] 56 Blood Venous blood specimen / Unknown Venipuncture / Unknown 12/09/2024 9:27 AM EDT 12/09/2024 9:28 AM EDT us Bonita Mares MD LAB BLOOD ORDERABLES Final Res ult [facility] [address] [place] [address] documented in this encounter Visit Diagnoses Diagnosis Endometrial intraepithelial neoplasia (EIN) HTN, goal below 140/90 Unspecified essential hypertension Acquired hypothyroidism Unspecified hypothyroidism Vitamin D deficiency Unspecified vitamin D deficiency Alcoholic liver disease (HCC) Alcoholic liver damage, unspecified Esophagitis Esophagitis, unspecified Electrolyte imbalance Electrolyte and fluid disorders not elsewhere classified documented in this encounter Advance Directives * [...] Healthcare Agent Relationshi p Communication [facility] Care Repr esentative (appointed verbally by patient or by statute hierarchy) Care Teams Extract Mixer Relationship Specialty Start Date End Date Bonita Mares MD [address] [facility] [place] [address] PCP - General Internal Medicine 12/28/15 documented as of this encounter
--- OUTSIDE RECORDS SUMMARY | 2025-01-08 01:01 | External Medical Summary ---
Author Name Unknown Address Unknown Organization [id number]:[facility] 56-02 [address] [place] [address] Laboratory Report Ordering Provider Test Date Status YENNIFER GODINEZ 12/09/2024 09:27:45 Final Observation Date Value Abnormality Reference (Units ) Status BUN 12/09/2024 09:27:45 12 6-20 (mg/dL) Final Creatinine 12/09/2024 09:27:45 0.7 0.5-1.0 (mg/dL) Final Glomerular filtration rate/1.73 sq M.predicted [Volume Rate/Area] in Serum, Plasma or Blood by Creatinine-based formula (CKD-EPI) 12/09/2024 09:27:45 >90 >=60 (mL/min) Final eGFR is calculated based on the CKD-EPI 2020 equation. Sodium 12/09/2024 09:27:45 140 135-146 (m mol/L) Final Potassium 12/09/2024 09:27:45 4.3 3.5-5.1 (m mol/L) Final Cl 12/09/2024 09:27:45 104 98-107 (mm ol/L) Final CO2 12/09/2024 09:27:45 27 22-32 (mmo l/L) Final Anion gap 12/09/2024 09:27:45 9 7-15 (mmol /L) Final Glucose 12/09/2024 09:27:45 78 70-120 (mg /dL) Final Albumin 12/09/2024 09:27:45 4.2 3.8-5.0 (g /dL) Final AST (Aspartate aminotransferase) 12/09/2024 09:27:45 21 10-35 (U/L) Final Alk Phos 12/09/2024 09:27:45 90 35-130 (U/ L) Final Bilirubin, Total 12/09/2024 09:27:45 0.5 <=1 .2 (mg/dL) Final Calcium 12/09/2024 09:27:45 9.9 8.4-10.2 ( mg/dL) Final Protein 12/09/2024 09:27:45 7.5 6.0-8.3 (g /dL) Final ALT (Alanine aminotransferase) 12/09/2024 09:27:45 18 10-35 (U/L) Final Performing Location [facility] [address] [place] [address]
--- OUTSIDE RECORDS SUMMARY | 2025-01-08 01:01 | External Medical Summary ---
Author Name Unknown Address Unknown Organization [id number]:[facility] [place] [address] [place] [address] Laboratory Report Ordering Provider Test Date Status BENITO NORTON 12/09/2024 09:27:45 Final Observation Date Value Abnormality Reference (Units ) Status Iron 12/09/2024 09:27:45 67 33-151 (ug/dL) Final Iron-binding capacity 12/09/2024 09:27:45 248 Below low normal 250-425 (ug/dL) Final Transferrin Sat % 12/09/2024 09:27:45 27 15-55 (%) Final Performing Location [facility] [place] [address] [place] [address]
--- OUTSIDE RECORDS SUMMARY | 2025-01-08 01:01 | External Medical Summary | Summary of Care ---
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 * Result Encounter Note - Hayley Rojas PA-C - 12/09/2024 3:16 PM EDT Noted pt's TSH is low--meaning it is being over treated with the levothyroxine. Would recommend bumping the dose down to 100 mcg. Rx sent to pharmacy. Also noted Vit d level insufficient. Is she still currently taking the Vit D supplement 2000 iu daily? Otherwise her labs looked good. * Result Encounter Note - Hayley Rojas PA-C - 12/09/2024 11:24 AM EDT CMP normal. * Result Encounter Note - Hayley Rojas PA-C - 12/09/2024 10:13 AM EDT CBC normal. documented in this encounter Plan of Treatment Upcoming Encounters Date Type Department Care Team (Late st Contact Info) Description 12/18/2024 1:00 PM EDT Office Visit Gastroenterology, [facility] [address] [place] [phone] Sharon Barraza PA-C [address] [place] [address] 01/01/2025 1:00 PM EDT Office Visit General Internal Medicine [facility] [address] [place] [address] Bonita Mares MD 200 [place] [address] Pending Results Name Type Priority Associated Diagnoses Date /Time ANTINUCLEAR ANTIBODY (ALPESH) EIA SCREEN WITH REFLEX AB QUANT Lab Routine Alcoholic liver disease (HCC) 12/09/2024 9:27 AM EDT ANTINUCLEAR ANTIBODY (ALPESH) [...] 02/01, 05/31/2011, Additional history exists COVID-19 Vaccine (1 - 2024-25 season) 2024 Mammogram 02/11/2025 02/12/2024, 02/01, 06/06/2022, [...] Procedure Name Priority Date/Time Associated Diagnosis Comments TSH WITH FREE T4 IF INDICATED Routine 12/09/2024 9:27 AM EDT Acquired hypothyroidism LIPID PANEL WITH DIRECT LDL IF TG IS HIGH Routine 12/09/2024 9:27 AM EDT HTN, goal below 140/90 25-HYDROXY VITAMIN D Routine 12/09/2024 9:27 AM EDT Vitamin D deficiency ACUTE HEPATITIS PANEL Routine 12/09/2024 9:27 AM EDT Alcoholic liver disease (HCC) COMPREHENSIVE METABOLIC PANEL Routine 12/09/2024 9:27 AM EDT HTN, goal below 140/90 Endometrial intraepithelial neoplasia (EIN) IRON SCREEN, INCLUDING TIBC Routine 12/09/2024 9:27 AM EDT Alcoholic liver disease (HCC) Esophagitis CBC Routine 12/09/2024 9:27 AM EDT Endometrial intraepithelial neoplasia (EIN) T4, FREE Routine 12/09/2024 9:27 AM EDT Acquired hypothyroidism documented in this encounter Results * T4, FREE (12/09/2024 9:27 AM EDT) T4, Free 1.7 0.9 - 1.7 ng/dL 12/09/2024 2:45 PM EDT [facility] [place] Venous blood specimen / Unknown Venipuncture / Unknown 12/09/2024 9:27 AM EDT 12/09/2024 9:28 AM EDT Hayley Rojas PA-C LAB BLOOD ORDERAB LES Final Result LABORATORY [address] [address] * (ABNORMAL) TSH WITH FREE T4 IF INDICATED (12/09/2024 9:27 AM EDT) TSH 0.09(L) 0.27 - 4.20 uIU/mL 12/09/2024 2:20 PM EDT [facility] Blood Venous blood specimen / Unknown Venipuncture / Unknown 12/09/2024 9:27 AM EDT 12/09/2024 9:28 AM EDT Hayley Rojas PA-C LAB BLOOD ORDERAB LES Final Result Performing Organization Address City/[facility] Co de Phone Number [facility] [address] [place] [address] * (ABNORMAL) IRON SCREEN, INCLUDING TIBC (12/09/2024 9:27 AM EDT) [facility] Iron 67 33 - 151 ug/dL 12/09/2024 1:24 PM EDT [facility] Iron Binding Capacity 248(L) 250 - 425 ug/dL 12/09/2024 1:24 PM EDT [facility] Transferrin Saturation Percent 27 15 - 55 % 12/09/2024 1:24 PM EDT [facility] Blood Venous blood specimen / Unknown Venipuncture / Unknown 12/09/2024 9:27 AM EDT 12/09/2024 9:28 AM EDT Hayley Rojas PA-C LAB BLOOD ORDERAB LES Final Result Performing Organization Address [facility] de Phone Number [facility] [address] [place] [address] * ACUTE HEPATITIS PANEL (12/09/2024 9:27 AM EDT) [facility] Hepatitis A Antibody IgM Negative Negative 12/09/2024 1:20 PM EDT [facility] Hepatitis B Core Antibody IgM Negative Negative 12/09/2024 1:20 PM EDT [facility] Hepatitis B Surface Antigen Negative Negative 12/09/2024 1:20 PM EDT [facility] Hepatitis C Antibody Negative Negative 12/09/2024 1:20 PM EDT LAB[facility]AT[facility] C Blood Venous blood specimen / Unknown Venipuncture / Unknown 12/09/2024 9:27 AM EDT 12/09/2024 9:28 AM EDT Hayley Rojas PA-C LAB BLOOD ORDERAB LES Final Result Performing Organization Address [facility] Co de Phone Number [facility] [address] [place] [address] * 25-HYDROXY VITAMIN D (12/09/2024 9:27 AM EDT) 25-Hydroxy Vitamin D 22 >19 ng/mL 12/09/2024 2:20 PM EDT [facility] Blood Venous blood specimen / Unknown Venipuncture / Unknown 12/09/2024 9:27 AM EDT 12/09/2024 9:28 AM EDT Narrative [facility] - 12/09/2024 2:20 PM EDT Deficient: <20 ng/mL Insufficient: 20-29 ng/mL Recommended/Optimum:30-50 ng/mL Vitamin D intoxication is rare. If suspicious of Vitamin D toxicity, evaluation of serum Calcium and PTH is recommended. us Bonita Mares MD LAB BLOOD ORDERABLES Final Res ult [facility] [address] [place] [address] * LIPID PANEL WITH DIRECT LDL IF TG IS HIGH (12/09/2024 9:27 AM EDT) Triglycerides 102 <=174 mg/dL 12/09/2024 1:24 PM EDT [facility] Comment: Triglyceride Reference Ranges (mg/dL): <150 Acceptable 150-174 Borderline high 175-499 High >=500 Very high Cholesterol 174 <200 mg/dL 12/09/2024 1:24 PM EDT [facility] Comment: Total Cholesterol Reference Ranges (mg/dL): <200 Desirable 200-239 Borderline high >=240 High HDL Cholesterol 51 >49 mg/dL 1:24 PM EDT [facility] Comment: HDL Cholesterol Reference Ranges (mg/dL): >=60 High (Desirable) <50 Low (Undesirable) For Females <40 Low (Undesirable) For Males Non-HDL Cholesterol 123 <=159 mg/dL 12/09/2024 1:24 PM EDT [facility] Comment: Non-HDL Cholesterol Reference Range (mg/dL): <100 Target level for high risk ASCVD patient <130 Optimal for general population 130-159 Near optimal for general population 160-189 Borderline High 190-219 High >=220 Very High LDL Cholesterol 103 <=129 mg/dL 12/09/2024 1:24 PM EDT [facility] Comment: LDL Cholesterol Reference Ranges (mg/dL): <70 Target level for high risk ASCVD patient <100 Optimal for general population 100-129 Near optimal for general population 130-159 Borderline high 160-189 High >=190 Very high Patient has high LDL cholesterol. Consider screening for Familial Hypercholesterolemia. Blood Venous blood specimen / Unknown Venipuncture / Unknown 12/09/2024 9:27 AM EDT 12/09/2024 9:28 AM EDT us Bonita Mares MD LAB BLOOD ORDERABLES Final Res ult [facility] [address] [place] [address] * COMPREHENSIVE METABOLIC PANEL (12/09/2024 9:27 AM EDT) BUN 12 6 - 20 mg/dL 12/09/2024 10:38 AM EDT [facility] 56 CREATININE 0.7 0.5 - 1.0 mg/dL 12/09/2024 10:38 AM EDT [facility] 56 EGFR >90 >=60 mL/min 12/09/2024 10:38 AM T [facility] 56- Comment:eGFR is calculated b ased on the CKD-EPI 2020 equation. SODIUM 140 135 - 146 mmol/L 12/09/2024 10:38 AM T [facility] 56- POTASSIUM 4.3 3.5 - 5.1 mmol/L 12/09/2024 10:38 AM T [facility] 56- CHLORIDE 104 98 - 107 mmol/L 12/09/2024 10:38 AM T [facility] 56- CO2 27 22 - 32 mmol/L 12/09/2024 10:38 AM EDT [facility] 56- ANION GAP 9 7 - 15 mmol/L 12/09/2024 10:38 AM EDT [facility] 56- GLUCOSE 78 70 - 120 mg/dL 12/09/2024 10:38 AM T [facility] 56- Albumin 4.2 3.8 - 5.0 g/dL 12/09/2024 10:38 AM EDT [facility] 56 AST 21 10 - 35 U/L 12/09/2024 10:38 AM EDT [facility] 56 Alkaline Phosphatase 90 35 - 130 U/L 12/09/2024 10:38 AM EDT [facility] 56 Bilirubin, Total 0.5 <=1.2 mg/dL 12/09/2024 10:38 AM EDT [facility] 56 CALCIUM 9.9 8.4 - 10.2 mg/dL 12/09/2024 10:38 AM EDT [facility] 56 Protein 7.5 6.0 - 8.3 g/dL 12/09/2024 10:38 AM EDT [facility] 56 ALT 18 10 - 35 U/L 12/09/2024 10:38 AM EDT [facility] Blood Venous blood specimen / Unknown Venipuncture / Unknown 12/09/2024 9:27 AM EDT 12/09/2024 9:28 AM EDT us Bonita Mares MD LAB BLOOD ORDERABLES Final Res ult [facility] [address] [place] [address] * CBC (12/09/2024 9:27 AM EDT) WBC 5.86 4.00 - 10.80 K/uL 12/09/2024 9:51 AM EDT [facility] RBC 4.07 3.85 - 5.15 M/uL 12/09/2024 9:51 AM EDT [facility] HGB 12.9 12.0 - 15.3 g/dL 12/09/2024 9:51 AM EDT [facility] HCT 39.9 36.0 - 45.2 % 12/09/2024 9:51 AM EDT [facility] 56 MCV 98.0 81.5 - 97.5 fL 12/09/2024 9:51 AM EDT [facility] 56 MCH 31.7 27.0 - 34.0 pg 12/09/2024 9:51 AM EDT [facility] 56 MCHC 32.3 32.0 - 36.0 g/dL 12/09/2024 9:51 AM EDT [facility] 56 RDW 13.0 11.5 - 15.5 % 12/09/2024 9:51 AM EDT [facility] 56 PLT 216 140 - 400 K/uL 12/09/2024 9:51 AM EDT [facility] 56 MPV 11.0 6.6 - 11.1 fL 12/09/2024 9:51 AM EDT [facility] 56 Blood Venous blood specimen / Unknown Venipuncture / Unknown 12/09/2024 9:27 AM EDT 12/09/2024 9:28 AM EDT us Bonita Mares MD LAB BLOOD ORDERABLES Final Res ult [address] [place] [address] documented in this encounter Visit Diagnoses Diagnosis [...] patient or by statute hierarchy) Care Teams Recreation Establishment Manager Relationship Specialty Start Date End Date Bonita Mares MD [address] [place] [address] PCP - General Internal Medicine 12/28/15 documented as of this encounter
--- OUTSIDE RECORDS SUMMARY | 2025-01-08 01:02 | External Medical Summary | Summary of Care ---
Author Name Unknown Organization [facility] Address [address] [place] [address] Phone [phone] Care Team Providers Care Catcher Helper Name Role Phone Bonita Mares MD Primary Care Provider [phone] Encounter Details Date Type Department Care Team (Late st Contact Info) Description 11/18/2024 Orders Only PATIENT PORTAL DO NOT DELETE THIS DEPT USED BY [place] [id number] Allergies Active Allergy Reactions Criticality Noted Date Comments Aspartame Medium 05/31/2011 Mental confusion Flavoring Agent (Non-Screening) Medium 03/03 Mental confusion documented as of this encounter (statuses as of 11/18/2024) Medications Cholecalciferol (VITAMIN D3) 50 MCG (1999) CapsuleIndication s:Low serum vitamin D Take 1 Cap by mouth daily. 90 Cap 1 9 Active Fish Oil 1000 MG Oral Capsule Take 1 Capsule by mouth in the morning. Active Melatonin 1 MG Oral Tablet Take 1 Tablet by mouth at bedtime. Active Benefiber Oral PowderIndications :Constipation, unspecified constipation type Take 1 Tbsf in a glass of water daily 4 Active Levothyroxine Sodium 112 MCG Oral Tablet (Levoxyl) Take 1 Tablet by mouth in the morning. (at least 30 min prior to breakfast or other meds)-per [facility] DrMaxin. 90 Tablet 4 Active Gabapentin 300 MG [...] 5 Active hydrOXYzine HCl 50 MG Oral TabletIndications :ZOILA (generalized anxiety disorder) Take 1 Tablet by mouth 3 times a day as needed for Anxiety. 90 Tablet 5 5 Active Propranolol HCl 10 MG Oral Tablet (Inderal)Indicati ons:ZOILA (generalized anxiety disorder) Take 1 Tablet by mouth daily as needed for Anxiety. 30 Tablet 5 5 Active Pantoprazole Sodium 20 MG Oral Tablet Delayed Release (Protonix)Indicat ions:Esophagitis Take 1 Tablet by mouth in the morning and 1 Tablet before bedtime. 60 Tablet 5 5 Active Lisinopril 5 MG Oral Tablet (Prinivil)Indicat ions:HTN, goal below 140/90 Take 1 Tablet by mouth in the morning. 30 Tablet 5 5 Active documented as of this encounter (statuses as of 11/18/2024) Active Problems Problem Noted Date Diagnosed Date 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 ZOILA (generalized anxiety disorder) 02/08/2024 Alcohol abuse 08/31/2022 BMI 32.0-32.9,adult 05/18/2021 Overview (08/01/2023): 33 Panic disorder 12/26/2016 Acquired hypothyroidism 09/27/2012 Mild episode of recurrent major depressive disor philipp HTN, goal below 140/90 documented as of this encounter (statuses as of 11/18/2024) Resolved Problems Problem Noted Date Diagnosed Date [...] as of this encounter (statuses as of 11/18/2024) Immunizations Name Administration Dates Next Due Seasonal [...] 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 Not on file Not on file documented as of this encounter Plan of Treatment Upcoming Encounters Date Type Department Care Team (Late st Contact Info) Description 12/18/2024 1:00 PM EDT Office Visit Gastroenterology, [facility] [address] [place] [phone] Sharon Barraza PA-C [address] [place] [address] 03/17/2025 2:20 PM EDT Office Visit General Internal Medicine [facility] [address] [place] [address] Bonita Mares MD [address] [place] [address] Health Maintenance Due Date Last Done Comments [...] patient or by statute hierarchy) Care Teams Catcher Helper Relationship Specialty Start Date End Date Bonita Mares MD [address] [place] [address] PCP - General Internal Medicine 12/28/15 documented as of this encounter
--- OUTSIDE RECORDS SUMMARY | 2025-01-08 01:02 | External Medical Summary ---
Author Name Unknown Address Unknown Organization [id number]:[facility] - [address] [place], [place] [address] Laboratory Report Ordering Provider Test Date Status BENITO NORTON 12/09/2024 09:27:45 Final Observation Date Value Abnormality Reference (Units ) Status TSH 12/09/2024 09:27:45 0.09 Below low normal 0.2 7-4.20 (uIU/mL) Final Performing Location [facility] - [address] [facility] [address]
--- OUTSIDE RECORDS SUMMARY | 2025-01-08 01:02 | External Medical Summary ---
Author Name Unknown Address Unknown Organization [id number]:[facility] [place] [address] Laboratory Report Ordering Provider Test Date Status YENNIFER GODINEZ 12/09/2024 09:27:45 Final Observation Date Value Abnormality Reference (Units ) Status WBC, Total 12/09/2024 09:27:45 5.86 4.00-10.8 0 (K/uL) Final RBC 12/09/2024 09:27:45 4.07 3.85-5.15 (M/uL) Final Hemoglobin 12/09/2024 09:27:45 12.9 12.0-15.3 (g/dL) Final HCT 12/09/2024 09:27:45 39.9 36.0-45.2 (%) Final MCV 12/09/2024 09:27:45 98.0 81.5-97.5 (fL) Final MCH 12/09/2024 09:27:45 31.7 27.0-34.0 (pg) Final MCHC 12/09/2024 09:27:45 32.3 32.0-36.0 (g/dL) Final RDW 12/09/2024 09:27:45 13.0 11.5-15.5 (%) Final Platelets 12/09/2024 09:27:45 216 140-400 (K /uL) Final MPV 12/09/2024 09:27:45 11.0 6.6-11.1 ( fL) Final Performing Location [facility] [place] [address]
--- OUTSIDE RECORDS SUMMARY | 2025-01-08 01:02 | External Medical Summary ---
Author Name Unknown Address Unknown Organization [id number]:[facility] [place] [address] [place] [address] Laboratory Report Ordering Provider Test Date Status YENNIFER GODINEZ 12/09/2024 09:27:45 Final Deficient: <20 ng/mL
Ins ufficient: 20-29 ng/mL
Recommended/Optimum:30-50 ng/mL

Vitamin D intoxication is rare. If suspicious of Vitamin D toxicity, evaluation of serum Calcium and PTH is recommended. Observation Date Value Abnormality Reference (Units ) Status 25-OH Vitamin D total 12/09/2024 09:27:45 22 >19 (ng/mL) Final Performing Location [facility] - [address] [place] [address]
--- OUTSIDE RECORDS SUMMARY | 2025-01-08 01:02 | External Medical Summary | Summary of Care ---
Author Name Unknown Organization [facility] Address [address] [place] [address] Phone [phone] Care Team Providers Care Lucerne Farmer Name Role Phone Bonita Mares MD Primary Care Provider Reason for Visit * Reason Onset Date Comments medication change 12/01/2024 Encounter Details Date Type Department Care Team ([facility] st Contact Info) Description 12/01/2024 Telephone General Internal Medicine [facility] [address] [facility] [place] [address] Bonita Mares MD [address] [place] [address] medication change Allergies Active Allergy Reactions Criticality Noted Date Comments Aspartame Medium 05/31/2011 Mental confusion Flavoring Agent (Non-Screening) Medium 03/03 Mental confusion documented as of this encounter (statuses as of 12/04/2024) Medications Cholecalciferol (VITAMIN D3) 50 MCG (1999) [...] glass of water daily 03/12/20 24 Active Levothyroxine Sodium 112 MCG Oral Tablet (Levoxyl) Take 1 Tablet by mouth in the morning. (at least 30 min prior to breakfast or other meds)-per CVHAMILTON Leonard. 90 Tablet 07/10/20 24 Active Gabapentin 300 MG Oral Capsule [...] the morning. 30 Tablet 11/14/19 25 Active Levothyroxine Sodium 125 MCG Oral Tablet (Levoxyl)Indicatio ns:Acquired hypothyroidism Take 1 Tablet by mouth daily first thing in the morning. 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 ZOILA (generalized anxiety disorder) 02/08/2024 Alcohol abuse 08/31/2022 BMI 32.0-32.9,adult 05/18/2021 Overview (08/01/2023): 33 Panic disorder 12/26/2016 Acquired hypothyroidism 09/27/2012 Mild episode of recurrent major depressive disor philipp HTN, goal below 140/90 documented as of this encounter (statuses as of 12/04/2024) Resolved Problems Problem Noted Date Diagnosed Date [...] as of this encounter (statuses as of 12/04/2024) Immunizations Name Administration Dates Next Due Seasonal [...] 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 Pt wanted in january 04 * Telephone Encounter - Bonita Mares MD - 12/01/2024 3:43 PM EDT Per discharge summary ,11/07, review she is on 125 mcg daily which I just sent She needs repeat TSH in 6 weeks and suggest to get that in 1 month so end of December as ordered by Hayley Rojas I know she was seen for hospital follow up and has appoint in March with me , however suggest to move appoint with me sooner if possible * Telephone Encounter - Cydney Maurice [facility] - 12/01/2024 1:11 PM EDT Pt requesting dose increase on Levothyroxine tating she had recent bloodwork at [facility] and dosewas increased. RX last filled by [facility] pcp as 112 mcg. Upon adherence tracker, levothyroxine was increased to 125 mcg by [facility] provider on 09/16 and then increased again to 150 mcg by [facility] provider on 11/07. Last TSH in chart was from 06/26/2023. Updated TSH lab not scanned into chart. Pending for dose increase 150 mcg as requested. Please sign if agreeable. Thank you, Cydney Maurice PharmD Clinical Pharmacist [facility] [phone] 12/01/2024, 1:18 PM * Telephone Encounter - Kristie Sunshine PHARM Tech - 12/01/2024 1:08 PM EDT Pt calling in to request a dose change on their Levothyroxine Sodium 112 MCG Oral Tablet (Levoxyl) . Current dose: Take 1 Tablet by mouth in the morning. (at least 30 min prior to breakfast or other meds)-per [facility] DrMaxin Requested dose: 150 mg Reason for request: Pt was in the hospital and they upped the dose, but no new script was sent. Preferred pharmacy: [facility] [phone] Warm-transferred pt to pharmacist for consultation. Thank you, Kristie Sunshine CPhT Ccu Nurse II [facility] 12/01/2024,1:08 PM documented in this encounter Plan of Treatment Upcoming Encounters Date Type Department Care Team (Late st Contact Info) Description 12/09/2024 9:10 AM EDT Laboratory Laboratory [facility] [place] [address] [place] [phone] Lisa [address] [facility] [place] [address] 12/18/2024 1:00 PM EDT Office Visit Gastroenterology, [facility] [address] [place] [phone] Sharon Barraza PA-C [address] [place] [address] 01/01/2025 1:00 PM EDT Office Visit General Internal Medicine [facility] [address] [facility] [place] [address] Bonita Mares MD [address] [facility] [place] [address] Health Maintenance Due Date Last Done Comments [...] Additional history exists Albumin/Creatinine Ratio 06/02/2025 06/02/2022 DTap/Tdap Vaccines (3 [...] as of this encounter Visit Diagnoses Diagnosis Acquired hypothyroidism- Primary Unspecified hypothyroidism documented in this encounter Advance Directives * [...] Healthcare Agent Relationshi p Communication Caroline Hussein [facility] [place] [facility] Health Care Repr esentative (appointed verbally by patient or by statute hierarchy) Care Teams Lucerne Farmer Relationship Specialty Start Date End Date Bonita Mares MD [address] [facility] [place] [address] PCP - General Internal Medicine 12/28/15 documented as of this encounter
--- OUTSIDE RECORDS SUMMARY | 2025-01-08 01:02 | External Medical Summary ---
Author Name Unknown Address Unknown Organization K01:[facility] - [address] [place] [address] Laboratory Report Ordering Provider Test Date Status BENITO NORTON 12/09/2024 09:27:45 Final Observation Date Value Abnormality Reference (Units ) Status Hep A IgM 12/09/2024 09:27:45 Negative Negative Final Hep B Core IgM 12/09/2024 09:27:45 Negative Negat adrianna Final Hep B surface Ag 12/09/2024 09:27:45 Negative Neg ative Final Hep C Ab 12/09/2024 09:27:45 Negative Negative Final Performing Location [facility] - [address] [place] [address]
--- OUTSIDE RECORDS SUMMARY | 2025-01-08 01:02 | External Medical Summary | Summary of Care ---
Author Name Unknown Organization [facility] Address [address] [place] [address] Phone [phone] Care Team Providers Care Manager Oracle Name Role Phone Bonita Mares MD Primary Care Provider [phone] Reason for Visit * Reason Onset Date Comments Health Maintenance 11/27/2024 Encounter Details Date Type Department Care Team (Late st Contact Info) Description 11/27/2024 Telephone General Internal Medicine [facility] [address] [facility] [place] [place] [address] Bonita Mares MD [address] [place] [address] Health Maintenance Allergies Active Allergy Reactions Criticality Noted Date Comments Aspartame Medium 05/31/2011 Mental confusion Flavoring Agent (Non-Screening) Medium 03/03 Mental confusion documented as of this encounter (statuses as of 11/27/2024) Medications Cholecalciferol (VITAMIN D3) 50 MCG (1999) [...] or other meds)-per CVHAMILTON Leonard. 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 ZOILA (generalized anxiety disorder) 02/08/2024 Alcohol abuse 08/31/2022 BMI 32.0-32.9,adult 05/18/2021 Overview (08/01/2023): 33 Panic disorder 12/26/2016 Acquired hypothyroidism 09/27/2012 Mild episode of recurrent major depressive disor philipp HTN, goal below 140/90 documented as of this encounter (statuses as of 11/27/2024) Resolved Problems Problem Noted Date Diagnosed Date [...] as of this encounter (statuses as of 11/27/2024) Immunizations Name Administration Dates Next Due Seasonal [...] 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 Not on file Not on file documented as of this encounter Miscellaneous Notes * Telephone Encounter - Amanda Springer LPN - 11/27/2024 10:02 AM EDT Care Gaps Comprehensive Care Outreach Last Office/Telemedicine Visit: 11/13/2024 (in office), 12/11/2019 (telemedicine) Next Office Visit: 03/17/2025 Hemoglobin AIC Results: Lab Results Component Value Date/Time HEMOGLOBIN A1C - PABLITOER 5.3 10/11/2015 04:15 PM BP Readings from Last 1 Encounters: 11/13/24 108/66 Reviewed Health Maintenance below: Health Maintenance Topic Date Due Pneumococcal Vaccine: 50+ Years (1 of 2 - PCV) Never done Colorectal Cancer Screening Never done Cervical Cancer Screening 03/15/2023 Influenza Vaccine (FLU shot) (1) 05/04/2024 COVID-19 Vaccine ( - season) Never done TSH 06/26/2024 GFR 09/19/2024 Mammogram 02/11/2025 Colon has follow with gastro december Pap hysterectomy Labs already already ordered Mamm February 11 Care Gap Outreach Action Taken: Left message and MyChart message sent documented in this encounter Plan of Treatment Upcoming Encounters Date Type Department Care Team (Late st Contact Info) Description 12/18/2024 1:00 PM EDT Office Visit Gastroenterology, [facility] [address] [place] [phone] Sharon Barraza PA-C [address] [place] [address] 03/17/2025 2:20 PM EDT Office Visit [facility] [address] [facility] [place] [place] [address] Bonita Mares MD [address] [facility] [place] [address] Health Maintenance Due Date Last Done Comments [...] Healthcare Agent Relationshi p Communication Caroline Hussein [facility] Health Care Repr esentative (appointed verbally by patient or by statute hierarchy) Care Teams Manager Oracle Relationship Specialty Start Date End Date Bonita Mares MD [address] [place] [place] [address] PCP - General Internal Medicine 12/28/15 documented as of this encounter
--- OUTSIDE RECORDS SUMMARY | 2025-01-08 01:02 | External Medical Summary | Summary of Care ---
Author Name Unknown Organization [facility] Address [address] [place] [address] Phone [phone] Care Team Providers Care Ship Boat Or Barge Mate Name Role Phone Bonita De Oliveira MD Primary Care Provider [phone] Reason for Visit * Reason Onset Date Comments Medication Refill 12/01/2024 Encounter Details Date Type Department Care Team (Late st Contact Info) Description 12/01/2024 Refill General Internal Medicine [facility] [place] [address] [place] [place] [address] Bonita De Oliveira MD [address] [place] [address] Insomnia, unspecified type Allergies Active Allergy Reactions Criticality Noted Date Comments Aspartame Medium 05/31/2011 Mental confusion Flavoring Agent (Non-Screening) Medium 03/03 Mental confusion documented as of this encounter (statuses as of 12/02/2024) Medications Cholecalciferol (VITAMIN D3) 50 MCG (1999) CapsuleIndicatio ns:Low serum vitamin D Take 1 Cap by mouth daily. 90 Cap 1 9 Active Fish Oil 1000 MG Oral Capsule Take 1 Capsule by mouth in the morning. Active Melatonin 1 MG Oral Tablet Take 1 Tablet by mouth at bedtime. Active Benefiber Oral PowderIndication s:Constipation, unspecified constipation [...] 5 Active hydrOXYzine HCl 50 MG Oral TabletIndication s:ZOILA (generalized anxiety disorder) Take 1 Tablet by mouth 3 times a day as needed for Anxiety. 90 Tablet 5 5 Active Propranolol HCl 10 MG Oral Tablet (Inderal)Indicat ions:ZOILA (generalized anxiety disorder) Take 1 Tablet by mouth daily as needed for Anxiety. 30 Tablet 5 5 Active Pantoprazole Sodium 20 MG Oral Tablet Delayed Release (Protonix)Indica tions:Esophagiti s Take 1 Tablet by mouth in the morning and 1 Tablet before bedtime. 60 Tablet 5 5 Active Lisinopril 5 MG Oral Tablet (Prinivil)Indica tions:HTN, goal below 140/90 Take 1 Tablet by mouth in the morning. 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 ZOILA (generalized anxiety disorder) 02/08/2024 Alcohol abuse 08/31/2022 BMI 32.0-32.9,adult 05/18/2021 Overview (08/01/2023): 33 Panic disorder 12/26/2016 Acquired hypothyroidism 09/27/2012 Mild episode of recurrent major depressive disor philipp HTN, goal below 140/90 documented as of this encounter (statuses as of 12/02/2024) Resolved Problems Problem Noted Date Diagnosed Date Resolved Date Endometrial cancer 08/01/2023 5 Cancer Staging:Clinical stage from 09/24/2023:FIGO Stage IA(cT1a, [...] as of this encounter (statuses as of 12/02/2024) Immunizations Name Administration Dates Next Due Seasonal [...] 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 Not on file documented as of this encounter Miscellaneous Notes * Telephone Encounter - Bonita De Oliveira MD - 12/01/2024 4:01 PM EDTSigned Prescriptions: Disp Refills traZODone HCl 50 MG Oral Tablet (Desyrel) 90 Tab*0 Sig: TAKE 1 TABLET BY MOUTH AT BEDTIME NEEDED FOR SLEEP Authorizing Provider: BONITA DE OLIVEIRA * Telephone Encounter - Rowena Martinez, sewer system supervisor - 12/01/2024 3:37 PM EDT Pending Prescriptions: Disp Refills traZODone HCl 50 MG Oral Tablet (Desyrel) 90 Tab*0 Sig: TAKE 1 TABLET BY MOUTH AT BEDTIME NEEDED FOR SLEEP * Telephone Encounter - Rowena Martinez PHARM Tech - 12/01/2024 3:37 PM EDT Received message from [facility] regarding patient needing labs. Call Placed, Pt was agreeable to set up office visit. Patient scheduled for 12/09/24. Pt has one left Thank You, Rowena Martinez [facility] Freight Handler III [facility] ([facility]) 12/01/2024, 3:37 PM * Telephone Encounter - Erasmo Masterson [facility] - 12/01/2024 3:10 PM EDTPending Prescriptions: Disp Refills traZODone HCl 50 MG Oral Tablet (Desyrel) 90 Tab*0 Sig: TAKE 1 TABLET BY MOUTH AT BEDTIME NEEDED FOR SLEEP * Telephone Encounter - Erasmo Masterson [facility] - 12/01/2024 3:09 PM EDT AST/ALT elevated with most recent draw, now out of date. AST Date Value Ref Range Status 06/26/2023 98 (H) 10 - 35 U/L Final ALT Date Value Ref Range Status 06/26/2023 119 (H) 10 - 35 U/L Final Unable to authorize medication refills for pended medication(s) at this time. Per refill protocol patient should have routine labs on file within past year. Reviewed : AMP report Care Gaps/Health Maintenance medications list for any routine labs typically ordered for this patient. Lab orders placedpreviously. Please contact patient to advise of labs ordered for blood draw. Recommend patient to fast if able for labs. Patient may still have water and regular medications. Advise to obtain labs before requesting the next refill. After contacting patient, please forward request to Bonita De Oliveira MD. Thanks, Erasmo Masterson Pharm.D. Clinical Pharmacist [facility] ([facility]) [phone] 12/01/2024, 3:09 PM Did you pend patient's preferred pharmacy and medication before forwarding?yes [facility] [address] [place] [address] [place] [address] Pending Prescriptions: Disp Refills traZODone HCl 50 MG Oral Tablet (Desyrel) 90 Tab*0 Sig: TAKE 1 TABLET BY MOUTH AT BEDTIME NEEDED FOR SLEEP Last Visit: 11/13/2024 (in office), 12/11/2019 (telemedicine) Next Visit: 03/17/2025 If no future appointments scheduled, and last appointment is greater than a year ago, please schedule patient for a follow-up appointment Last date the medication was ordered: 09/26/2024 Is this request for a controlled substance?No Urine Drug Screen: Results for orders placed or performed in visit on 11/16/16 OPIOIDS/BENZO COMPLIANCE MONITORING W/INTERP Result Value Pain Management Interpretation (NOTE) URINE DRUG SCREEN RESULT Amphetamine Screen, U REFER TO CONFIRMATION RESULT (A) Barbiturates Screen, U NEGATIVE Benzodiazepines Screen, U REFER TO CONFIRMATION RESULT (A) Cannabinoids Screen, U NEGATIVE Cocaine Metabolite Screen, U NEGATIVE Methadone Metabolite Screen, U NEGATIVE Morphine/Codeine Screen, U NEGATIVE Oxycodone Screen, U POSITIVE (A) COMMENT THE ABOVE SCREENING RESULTS ARE PRESUMPTIVE AND CAN ONLY BE USED FOR MEDICAL PURPOSES. CONFIRMATORY TESTING IS AVAILABLE UPON REQUEST. Cutoff Concentration URINE VALID INTERP NORMAL CREATININE HERMAN 203 NITRITE HERMAN 27 pH HERMAN 5.0 Results for orders placed or performed in visit on 08/07/16 TOX SCREEN, URINE, W/ CONFIRMATION Result Value Amphetamine Screen, U NEGATIVE Barbiturates Screen, U NEGATIVE Benzodiazepines Screen, U NEGATIVE Cannabinoids Screen, U NEGATIVE Cocaine Metabolite Screen, U NEGATIVE Morphine/Codeine Screen, U NEGATIVE Methadone Metabolite Screen, U NEGATIVE Oxycodone Screen, U NEGATIVE TOX COMMENT THE ABOVE SCREENING RESULTS [...] 09:56 AM HGBA1C 5.3 10/11/2015 04:15 PM * Telephone Encounter - Kristie Sunshine, sewer system supervisor - 12/01/2024 1:05 PM EDT Did you pend patient's preferred pharmacy and medication before forwarding?yes [facility] [address] [place] [address] Pending Prescriptions: Disp Refills traZODone HCl 50 MG Oral Tablet (Desyrel) 90 Tab*0 Sig: TAKE 1 TABLET BY MOUTH AT BEDTIME NEEDED FOR SLEEP Last Visit: 11/13/2024 (in office), 12/11/2019 (telemedicine) Next Visit: 03/17/2025 If no future appointments scheduled, and last appointment is greater than a year ago, please schedule patient for a follow-up appointment Last date the medication was ordered: 08/13/24 Is this request for a controlled substance?No Urine Drug Screen: Results for orders placed or performed in visit on 11/16/16 OPIOIDS/BENZO COMPLIANCE MONITORING W/INTERP Result Value Pain Management Interpretation (NOTE) URINE DRUG SCREEN RESULT Amphetamine Screen, U REFER TO CONFIRMATION RESULT (A) Barbiturates Screen, U NEGATIVE Benzodiazepines Screen, U REFER TO CONFIRMATION RESULT (A) Cannabinoids Screen, U NEGATIVE Cocaine Metabolite Screen, U NEGATIVE Methadone Metabolite Screen, U NEGATIVE Morphine/Codeine Screen, U NEGATIVE Oxycodone Screen, U POSITIVE (A) COMMENT THE ABOVE SCREENING RESULTS ARE PRESUMPTIVE AND CAN ONLY BE USED FOR MEDICAL PURPOSES. CONFIRMATORY TESTING IS AVAILABLE UPON REQUEST. Cutoff Concentration URINE VALID INTERP NORMAL CREATININE HERMAN 203 NITRITE HERMAN 27 pH HERMAN 5.0 Results for orders placed or performed in visit on 08/07/16 TOX SCREEN, URINE, W/ CONFIRMATION Result Value Amphetamine Screen, U NEGATIVE Barbiturates Screen, U NEGATIVE Benzodiazepines Screen, U NEGATIVE Cannabinoids Screen, U NEGATIVE Cocaine Metabolite Screen, U NEGATIVE Morphine/Codeine Screen, U NEGATIVE Methadone Metabolite Screen, U NEGATIVE Oxycodone Screen, U NEGATIVE TOX COMMENT THE ABOVE SCREENING RESULTS ARE PRESUMPTIVE AND CAN ONLY BE USED FOR MEDICAL PURPOSES. POSITIVE RESULTS REFLEX TO CONFIRMATORY TESTING. Cutoff Concentration Patient Phone Numbers [email or web address] [phone] Labs: Lab Results Component Value Date/Time CREAT [...] Description 12/09/2024 9:10 AM EDT Laboratory Laboratory [facility] [address] [facility] [place] [id number] Lisa Garcia [facility] [address] [facility] [place] [address] 12/18/2024 1:00 PM EDT Office Visit Gastroenterology, [facility] [address] [place] [phone] Sharon Barraza PA-C [address] [place] [address] 03/17/2025 2:20 PM EDT Office Visit General Internal Medicine [facility] [address] [place] [address] Bonita De Oliveira MD [address] [facility] [place] [address] Health Maintenance Due Date Last Done Comments [...] as of this encounter Visit Diagnoses Diagnosis Insomnia, unspecified type documented in this encounter Advance Directives * [...] patient or by statute hierarchy) Care Teams Ship Boat Or Barge Mate Relationship Specialty Start Date End Date Bonita De Oliveira MD [address] [facility] [place] [address] PCP - General Internal Medicine 12/28/15 documented as of this encounter
--- OUTSIDE RECORDS SUMMARY | 2025-01-08 01:03 | External Medical Summary | Summary of Care ---
Author Name Unknown Organization [facility] Address [address] [place] [address] Phone [phone] Care Team Providers Care Traffic Division Commanding Officer Name Role Phone Bonita Mares MD Primary Care Provider [phone] Reason for Visit * Reason Onset Date Comments Hospital Follow-Up 11/07/2024 Encounter Details Date Type Department Care Team (Late st Contact Info) Description 11/07/2024 Telephone Gastroenterology, [facility] [address] [place] [address] Brittani Uriostegui DO [address] [place] [address] Hospital Follow-Up Allergies Active Allergy Reactions Criticality Noted Date Comments Aspartame Medium 05/31/2011 Mental confusion Flavoring Agent (Non-Screening) Medium 03/03 Mental confusion documented as of this encounter (statuses as of 11/10/2024) Medications Cholecalciferol (VITAMIN D3) 50 MCG (1999) [...] CRUSH OR CHEW) 90 Capsule 5 Active documented as of this encounter (statuses as of 11/10/2024) Active Problems Problem Noted Date Diagnosed Date [...] as of this encounter (statuses as of 11/10/2024) Resolved Problems Problem Noted Date Diagnosed Date [...] as of this encounter (statuses as of 11/10/2024) Immunizations Name Administration Dates Next Due Seasonal [...] 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 Pt was to have procedure on 2 separate occasions, but never returned any calls. Pt will need to have a referral for her to be seen in the office Please advise ALEXANDER Brown 11/10/2024 11:33 AM * Telephone Encounter - Magnolia Marin RN - 11/07/2024 11:04 AM EST Valerie Soto was discharged from [facility] on 11/07/24. Patient admitted for alcohol withdrawal and alcoholic liver disease. While admitted seen by [facility] GI and recommend: She should follow up as an OP w/ her established [facility] care team and plan for OP Fibroscan, EGD/Colonoscopy and clinic follow up. documented in this encounter Plan of Treatment Upcoming Encounters Date Type Department Care Team (Late st Contact Info) Description 11/13/2024 3:20 PM EDT Office Visit General Internal Medicine [facility] Bravo [address] [place] [address] Hayley Rojas PA-C [address] [place] [address] [address] Health Maintenance Due Date Last Done Comments [...] Healthcare Agent Relationshi p Communication Caroline Hussein [facility] Health Care Repr esentative (appointed verbally by patient or by statute hierarchy) Care Teams Traffic Division Commanding Officer Relationship Specialty Start Date End Date Bonita Mares MD [address] [place] [address] PCP - General Internal Medicine 12/28/15 documented as of this encounter
--- OUTSIDE RECORDS SUMMARY | 2025-01-08 01:03 | External Medical Summary | Summary of Care ---
Author Name Unknown Organization [facility] Address [address] [place] [address] Phone [phone] Care Team Providers Care Online Marketing Specialist Name Role Phone Bonita Mares MD Primary Care Provider [phone] Reason for Visit * Reason Onset Date Comments Medication Question 11/12/2024 Encounter Details Date Type Department Care Team ([facility] st Contact Info) Description 11/12/2024 Telephone General Internal Medicine [facility] [address] [facility] [place] [address] Bonita Mares MD [address] [place] [address] Medication Question Allergies Active Allergy Reactions Criticality Noted Date Comments Aspartame Medium 05/31/2011 Mental confusion Flavoring Agent (Non-Screening) Medium 03/03 Mental confusion documented as of this encounter (statuses as of 11/13/2024) Medications Cholecalciferol (VITAMIN D3) 50 MCG (1999) [...] as of this encounter (statuses as of 11/13/2024) Active Problems Problem Noted Date Diagnosed Date [...] as of this encounter (statuses as of 11/13/2024) Resolved Problems Problem Noted Date Diagnosed Date [...] as of this encounter (statuses as of 11/13/2024) Immunizations Name Administration Dates Next Due Seasonal [...] 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 * Telephone Encounter - Rizwan Saunders celery cutter - 11/12/2024 2:59 PM EDT Pt called stating she just cancelled her appt to be seen today and cannot reschedule right now. Pt wants refills on Lisinopril and Clonidine/ Advised pt that I could get her over to reschedule. Pt refused. Advised pt I will send message to DR office to see if they can fill scripts for Lisinopril and Clonidine for BP. Clonidine Dc'd. Please call pt if there is any questions. Thank You, Rizwan Saunders [facility] Aerial Gunner Superintendent II [facility] 11/12/2024, 3:03 PM documented in this encounter Plan of Treatment Upcoming Encounters Date Type Department Care Team (Late st Contact Info) Description 11/13/2024 1:00 PM EDT Office Visit General Internal Medicine Marko Garcia [place] [address] [facility] [place] [address] Hayley Rojas PA-C [address] [facility] [place] [address] Health Maintenance Due Date Last Done Comments [...] Healthcare Agent Relationshi p Communication Caroline Hussein [facility] Health Care Repr esentative (appointed verbally by patient or by statute hierarchy) Care Teams Online Marketing Specialist Relationship Specialty Start Date End Date Bonita Mares MD 200 [place] [address] PCP - General Internal Medicine 12/28/15 documented as of this encounter
--- OUTSIDE RECORDS SUMMARY | 2025-01-08 01:03 | External Medical Summary | Summary of Care ---
Author Name Unknown Organization [facility] Address [address] [place] [address] Phone [phone] Care Team Providers Care Track Inspector Name Role Phone Bonita Mares MD Primary Care Provider [phone] Reason for Visit * Reason Onset Date Comments FYI 11/13/2024 Encounter Details Date Type Department Care Team ([facility] st Contact Info) Description 11/13/2024 Telephone General Internal Medicine [facility] [address] [place] [address] Hayley Rojas PA-C [address] [place] [address] FYI Allergies Active Allergy Reactions Criticality Noted Date [...] min prior to breakfast or other meds)-per CHRISTIANA Leonard. 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 Pt will be in to have it done once she has insurance again. documented in this encounter Plan of Treatment Upcoming Encounters Date Type Department Care Team (Late st Contact Info) Description 12/18/2024 1:00 PM EDT Office Visit Gastroenterology, [facility] [address] [facility] [place] [address] Sharon Barraza PA-C [address] [place] [address] 03/17/2025 2:20 PM EDT Office Visit General Internal Medicine Marko Garcia [place] [address] [place] [address] Bonita Mares MD [address] [facility] [place] [address] Health Maintenance Due Date Last Done Comments [...] patient or by statute hierarchy) Care Teams Track Inspector Relationship Specialty Start Date End Date Bonita Mares MD [address] [place] [address] PCP - General Internal Medicine 12/28/15 documented as of this encounter
--- OUTSIDE RECORDS SUMMARY | 2025-01-08 01:03 | External Medical Summary | Summary of Care ---
Author Name Unknown Organization [facility] Address [address] [place] [address] Phone [phone] Care Team Providers Care Fruit Checker Name Role Phone Bonita Mares MD Primary Care Provider [phone] Reason for Visit * Reason Onset Date Comments Medication Question 11/12/2024 Encounter Details Date Type Department Care Team ([facility] st Contact Info) Description 11/12/2024 Telephone General Internal Medicine [facility] 200 [facility] [place] [address] Bonita Mares MD [address] [place] [address] Medication Question Allergies Active Allergy Reactions Criticality [...] 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 * Telephone Encounter - Rizwan Saunders material control supervisor - 11/12/2024 2:59 PM EDT Pt called [...] is any questions. Thank You, Rizwan Saunders [facility] Commissary Steward II [facility] 11/12/2024, 3:03 PM documented in this encounter Plan of Treatment Upcoming Encounters Date Type Department Care Team (Late st Contact Info) Description 11/13/2024 1:00 PM EDT Office Visit General Internal Medicine Marko Garcia [place] [address] [facility] [place] [address] Hayley Rojas PA-C [address] [facility] [place] [address] Health Maintenance Due Date Last Done Comments [...] Healthcare Agent Relationshi p Communication Caroline Hussein [facility] Health Care Repr esentative (appointed verbally by patient or by statute hierarchy) Care Teams Fruit Checker Relationship Specialty Start Date End Date Bonita Mares MD 200 [place] [address] PCP - General Internal Medicine 12/28/15 documented as of this encounter
--- OUTSIDE RECORDS SUMMARY | 2025-01-08 01:03 | External Medical Summary | Summary of Care ---
Author Name Unknown Organization [facility] Address [address] [place] [address] Phone [phone] Care Team Providers Care Livestock Laborer Name Role Phone Bonita Mares MD Primary Care Provider [phone] Reason for Referral * Evaluate & Treat - Unlimited Visits (Within 10 days (routine)) - Authorized Specialty Diagnoses / Procedures Referred By Kaylee warren Referred To Contact Gastroenterology Diagnoses Alcoholic liver disease (HCC) Esophagitis Hayley Rojas PA-C [address] [place] [id number] Phone: tel: fax: Referral ID Status Reason Start Date Expiration Date Visits Requested Visits Authorized [id number] Authorized Specialty Services Required 11/13/[phone] Question Answer Referral Priority Within 10 days (routine) Where should this appointment be scheduled? [facility] For what condition is the patient being referred? All Other Gastro Conditions (Abdominal Pain, Change in Bowel Habits, Anemia, Reflux) Other conditions (please specify): Esophagitis with alcoholic liver disease Reason for Visit * Reason Onset Date Comments Hospital Follow-Up Hospital Follow-Up 11/13/2024 Encounter Details Date Type Department Care Team (Late st Contact Info) Description 11/13/2024 1:00 PM EDT Office Visit General Internal Medicine State Sarah Bravo [address] [place] [id number] Hyaley Rojas PA-C [address] [place] [address] [id number] Hospital discharge follow-up*; Alcohol abuse; Alcoholic liver disease (HCC); E. coli UTI; Esophagitis; Electrolyte imbalance; Multiple contusions; Acquired hypothyroidism; HTN, goal below 140/90; ZOILA (generalized anxiety disorder) Allergies Active Allergy Reactions Criticality Noted Date [...] or other meds)-per [facility] Aisha. 90 Tablet 07/10/20 24 Active Gabapentin 300 MG Oral Capsule (Neurontin) Take 1 Capsule by mouth at bedtime. 90 Capsule 08/11/20 24 Active traZODone HCl 50 MG Oral Tablet (Desyrel)Indicat ions:Insomnia, unspecified type TAKE 1 TABLET BY MOUTH AT BEDTIME NEEDED FOR SLEEP 90 Tablet 08/13/20 24 Active buPROPion HCl ER (XL) 300 [...] 25 Active hydrOXYzine HCl 50 MG Oral TabletIndication s:ZOILA (generalized anxiety disorder) Take 1 Tablet by mouth 3 times a day as needed for Anxiety. 90 Tablet 5 11/14/19 25 Active Propranolol HCl 10 MG Oral Tablet (Inderal)Indicat ions:ZOILA (generalized anxiety disorder) Take 1 Tablet by mouth daily as needed for Anxiety. 30 Tablet 5 11/14/19 25 Active Pantoprazole Sodium 20 MG Oral Tablet Delayed Release (Protonix)Indica tions:Esophagiti s Take 1 Tablet by mouth in the morning and 1 Tablet before bedtime. 60 Tablet 5 11/14/19 25 Active Lisinopril 5 MG Oral Tablet (Prinivil)Indica tions:HTN, goal below 140/90 Take 1 Tablet by mouth in the morning. 30 Tablet 5 11/14/19 25 Active busPIRone HCl 5 MG Oral Tablet (Buspar)Indicati ons:ZOILA (generalized anxiety disorder) Take 1 Tablet by mouth 2 times a day as needed for Pain. 60 Tablet 1 03/12/20 24 025 Discontin ued(Medic ation List Clean Up) Lisinopril 5 MG Oral Tablet (Prinivil)Indica tions:HTN, goal below 140/90 Take 1 Tablet by mouth in the morning. 90 Tablet 08/11/20 24 025 Discontin ued(Refil l) hydrALAZINE HCl 20 MG/ML Injection Solution (Apresoline) Administer 0.5 mL intravenously as needed. 025 Discontin ued(Medic ation List Clean Up) [...] Industry Job Start Date Job End Date [employer] Not on file Not on file Not on file documented as of this encounter Last Filed Vital Signs Vital Sign Reading Time Taken Comments Blood Pressure 108/66 11/13/2024 1:04 PM EDT Pulse 76 11/13/2024 1:04 PM EDT Temperature 37.2 °C (98.9 °F) 11/13/2024 1:04 PM ED T Respiratory Rate - - Oxygen Saturation 97% 11/13/2024 1:04 PM EDT Inhaled Oxygen Concentration - - Weight 78.7 kg (173 lb 8 oz) 11/13/2024 1:04 PM EDT Height 162.6 cm (5' 4") 11/13/2024 1:04 PM EDT Body Mass Index 29.78 11/13/2024 1:04 PM EDT documented in this encounter Progress Notes * Hayley Rojas PA-C - 11/13/2024 1:04 PM EDT SUBJECTIVE: Valerie Soto is a 59 year old female. Chief Complaint Patient presents with Hospital Follow-Up Hospital Follow-Up Recent Admission: Patient was recently admitted to [facility]. The date of discharge was 11/07/24. Discharge report received and reviewed. HPI: Pt here today for a HFU after going to [facility] ER on 11/04 with chest pain. Was noted to be intoxicated with multiple contusions--pt reports falling multiple times and having trouble with balance. Was note to have some alcohol withdrawal symptoms and significant electrolyte abnormalities. GI and nephro were consulted. Electrolyte abnormalities resolved during stay with fluids and replacement. CT scan showing signs of significant esophagitis. Recommended treatment with PPI and outpatient f/up. Was also treated for UTI while inpatient and was discharged home on Keflex to complete treatment. Pt reports urinary symptoms have resolved. Pt reports she has felt pretty good since being home. Has questions about her BP medications. BP noted to be very well controlled today. She is requesting to have clonidine to help with her nerves. Discussed with pt she was placed on hydroxyzine and propranolol PRN for this purpose. Pt reports she is drinking 1 beer per day with plans to quit altogether. States the esophagitis has scared her. Patient Active Problem List Diagnosis Mild episode of recurrent major depressive disorder (HCC) Acquired hypothyroidism HTN, goal below 140/90 Panic disorder BMI 32.0-32.9,adult Alcohol abuse ZOILA (generalized anxiety disorder) Endometrial intraepithelial neoplasia (EIN) Current Outpatient Medications Medication Sig Dispense Refill Cholecalciferol (VITAMIN D3) 50 MCG (1999 UT) Capsule Take 1 Cap by mouth daily. 90 Cap 1 Fish Oil 1000 MG Oral Capsule Take 1 Capsule by mouth in the morning. Melatonin 1 MG Oral Tablet Take 1 Tablet by mouth at bedtime. Benefiber Oral Powder Take 1 Tbsf in a glass of water daily Levothyroxine Sodium 112 MCG Oral Tablet (Levoxyl) Take 1 Tablet by mouth in the morning. (at least30 min prior to breakfast or other meds)-per [facility] DrMaxin. 90 Tablet 0 Gabapentin 300 MG Oral Capsule (Neurontin) Take 1 Capsule by mouth at bedtime. 90 Capsule 0 traZODone HCl 50 MG Oral Tablet (Desyrel) TAKE 1 TABLET BY MOUTH AT BEDTIME NEEDED FOR SLEEP 90 Tablet 0 buPROPion HCl ER (XL) 300 MG Oral Tablet Extended Release 24 Hour (Wellbutrin XL) Take 1 Tablet by mouth in the morning. 90 Tablet 0 Venlafaxine HCl ER 150 MG Oral Capsule Extended Release 24 Hour (Effexor XR) TAKE 1 CAPSULE BY MOUTH ONCE DAILY ALONG WITH 75MG (DO NOT CUT, CRUSH OR CHEW) 90 Capsule 0 Venlafaxine HCl ER 75 MG Oral Capsule Extended Release 24 Hour (Effexor XR) TAKE 1 CAPSULE BY MOUTHONCE DAILY ALONG WITH 150MG (DO CUT, CRUSH OR CHEW) 90 Capsule 0 hydrOXYzine HCl 50 MG Oral Tablet Take 1 Tablet by mouth 3 times a day as needed for Anxiety. 90 Tablet 5 Propranolol HCl 10 MG Oral Tablet (Inderal) Take 1 Tablet by mouth daily as needed for Anxiety. 30 Tablet 5 Pantoprazole Sodium 20 MG Oral Tablet Delayed Release (Protonix) Take 1 Tablet by mouth in the morning and 1 Tablet before bedtime. 60 Tablet 5 Lisinopril 5 MG Oral Tablet (Prinivil) Take 1 Tablet by mouth in the morning. 30 Tablet 5 No current facility-administered medications for this visit. Current and discharge medications have been reconciled. Review of patient's allergies indicates: Allergen Reactions Aspartame Mental confusion Stevia Glycerite Extract [Flavoring Agent (Non-Screening)] Mental confusion OBJECTIVE: BP 108/66 | Pulse 76 | Temp 98.9 °F (37.2 °C) | Ht 5' 4" (1.626 m) | Wt 173 lb 8 oz (78.7 kg) | LMP 08/22/2018 (Approximate) | SpO2 97% | BMI 29.78 kg/m² | BSA 1.89 m² REVIEW OF SYSTEMS: Review of Systems Constitutional: Negative for chills and fever. Respiratory: Negative for shortness of breath. Cardiovascular: Negative for chest pain. Gastrointestinal: Negative for constipation, diarrhea, nausea and vomiting. Genitourinary: Negative. Neurological: Negative for seizures. PHYSICAL EXAM: BP 108/66 | Pulse 76 | Temp 98.9 °F (37.2 °C) | Ht 5' 4" (1.626 m) | Wt 173 lb 8 oz (78.7 kg) | LMP 08/22/2018 (Approximate) | SpO2 97% | BMI 29.78 kg/m² | BSA 1.89 m² Physical Exam Constitutional: General: She is not in acute distress. Appearance: She is not diaphoretic. Comments: Fading ecchymosis noted on L side of face HENT: Right Ear: Tympanic membrane, ear canal and external ear normal. Left Ear: Tympanic membrane, ear canal and external ear normal. Mouth/Throat: Mouth: Mucous membranes are moist. Pharynx: Oropharynx is clear. Cardiovascular: Rate and Rhythm: Normal rate and regular rhythm. Pulmonary: Effort: Pulmonary effort is normal. Breath sounds: Normal breath sounds. Abdominal: General: Bowel sounds are normal. Palpations: Abdomen is soft. Musculoskeletal: Cervical back: Normal range of motion and neck supple. Skin: General: Skin is warm and dry. Neurological: General: No focal deficit present. Mental Status: She is alert. Mental status is at baseline. ASSESSMENT: Hospital discharge follow-up (Primary) - DISCH MED RECON CUR MED LIS Alcohol abuse Alcoholic liver disease (HCC) - ANTINUCLEAR ANTIBODY (ALPESH) EIA SCREEN WITH REFLEX AB QUANT; Future; Expected date: 11/13/2024 - ACUTE HEPATITIS PANEL; Future; Expected date: 11/13/2024 - IRON SCREEN, INCLUDING TIBC; Future; Expected date: 11/13/2024 - CBC; Future; Expected date: 11/13/2024 - ADULT GASTROENTEROLOGY REFERRAL OP E. coli UTI Esophagitis - IRON SCREEN, INCLUDING TIBC; Future; Expected date: 11/13/2024 - CBC; Future; Expected date: 11/13/2024 - Pantoprazole Sodium 20 MG Oral Tablet Delayed Release (Protonix); Take 1 Tablet by mouth in the morning and 1 Tablet before bedtime. - ADULT GASTROENTEROLOGY REFERRAL OP Electrolyte imbalance - BASIC METABOLIC PANEL; Future; Expected date: 11/13/2024 Multiple contusions Acquired hypothyroidism - TSH WITH FREE T4 IF INDICATED; Future; Expected date: 11/13/2024 HTN, goal below 140/90 - Lisinopril 5 MG Oral Tablet (Prinivil); Take 1 Tablet by mouth in the morning. ZOILA (generalized anxiety disorder) Follow Up: Return in about 4 months (around 03/15/2025) for Return with Physician, Labs Today. | For: Return with Physician, Labs Today | Check-out note: Routine f/up with PCP in 4 months. PLAN: Continue present medication(s): Referral(s) to: GI Schedule labs: labs today or soon if not able to complete today Patient education: Medication list reviewed with pt and updated. Alcohol cessation discussed and strongly encouraged. Follow up in 4 month(s) with PCP for routine f/up. Sooner PRN. I spent a total of 40-54 minutes (exact time 40 mins) minutes on the date of service in preparation, delivery, and documentation of the care provided to Valerie Soto excluding any time spent in performance of separately billed services. Hayley Rojas PA-C documented in this encounter Nursing Notes * Sangita Herrera CCMA - 11/13/2024 1:02 PM EDT Pt is here today for Hospital follow up pt is doing much better pt is healing pt is worried about her BP now pt stated she was taken off BP medication and now pt stated her BP is going up now documented in this encounter Plan of Treatment Upcoming Encounters Date Type Department Care Team (Late st Contact Info) Description 12/18/2024 1:00 PM EDT Office Visit Gastroenterology, [facility] [address] [facility] [place] [address] Sharon Barraza PA-C [address] [place] [address] 03/17/2025 2:20 PM EDT Office Visit [facility] Internal Medicine [facility] [address] [facility] [id number] Bonita Mares MD [address] [facility] [address] Scheduled Orders Name Type Priority Associated Diagnoses Orde r Schedule ANTINUCLEAR ANTIBODY (ALPESH) EIA SCREEN WITH REFLEX AB QUANT Lab Routine Alcoholic liver disease (HCC) Expected: 11/13/2024 (Approximate), Expires: 11/13/2025 ACUTE HEPATITIS PANEL Lab Routine Alcoholic liver disease (HCC) Expected: 11/13/2024 (Approximate), Expires: 11/13/2025 IRON SCREEN, INCLUDING TIBC Lab Routine Alcoholic liver disease (HCC) Esophagitis Expected: 11/13/2024 (Approximate), Expires: 11/13/2025 CBC Lab Routine Alcoholic liver disease (HCC) Esophagitis Expected: 11/13/2024 (Approximate), Expires: 11/13/2025 TSH WITH FREE T4 IF INDICATED Lab Routine Acquired hypothyroidism Expected: 11/13/2024 (Approximate), Expires: 11/13/2025 BASIC METABOLIC PANEL Lab Routine Electrolyte imbalance Expected: 11/13/2024 (Approximate), Expires: 11/13/2025 Scheduled Referrals Name Type Priority Associated Diagnoses Order Schedule ADULT GASTROENTEROLOGY REFERRAL OP Referral Within 10 days (routine) Alcoholic liver disease (HCC) Esophagitis Ordered: 11/13/2024 Health Maintenance Due Date Last Done Comments [...] as of this encounter Visit Diagnoses Diagnosis Hospital discharge follow-up- Primary Other follow-up examination Alcohol abuse Alcohol abuse, unspecified Alcoholic liver disease (HCC) Alcoholic liver damage, unspecified E. coli UTI Urinary tract infection, site not specified Esophagitis Esophagitis, unspecified Electrolyte imbalance Electrolyte and fluid disorders not elsewhere classified Multiple contusions Contusion of multiple sites, not elsewhere classified Acquired hypothyroidism Unspecified hypothyroidism HTN, goal below 140/90 Unspecified essential hypertension ZOILA (generalized anxiety disorder) Generalized anxiety disorder documented in this encounter Advance Directives * [...] Agent Relationshi p Communication Caroline Hussein [facility] Health Care Repr esentative (appointed verbally by patient or by statute hierarchy) Care Teams Livestock Laborer Relationship Specialty Start Date End Date Bonita Mares MD [address] [place] [address] PCP - General Internal Medicine 12/28/15 documented as of this encounter
[2025-01-08] MEDS: hydrOXYzine HCl 25 MG TAB PO PRN (05:42)
[2025-01-08 05:47] LABS: Hematocrit (blood only) 39.1 % (37.0-47.0); Hemoglobin 13.8 g/dl (12.0-16.0); Mean Corpuscular Hgb Conc 35.3 g/dL (32.0-36.0); Mean Corpuscular Volume 87.9 fL (80.0-100.0); Mean Platelet Volume 10.2 fL (9.4-12.4); Platelet Count 196 K/uL (130-400); RDW Coefficient of Variation 12.6 % (11.5-14.5); RDW Standard Deviation 40.5 fL (36.4-46.3); Red Blood Count 4.45 M/uL (4.20-5.40); White Blood Count 7.21 K/ul (4.8-10.8)
[2025-01-08 06:04] LABS: Albumin Globulin Ratio 1.2 (0.9-2); Albumin Level 3.4 gm/dl (3.4-5.0); BUN Creatinine Ratio 19.4 (10-20); Bilirubin,Total 1.7 mg/dl (0.2-1.0); Calcium 7.8 mg/dl (8.6-10.3); Creatinine Clr Calc Pharmacy 77.7 ml/min; Globulin 2.9 gm/dl (2.5-4.0); Magnesium 1.9 mg/dl (1.7-2.4); Phosphorus 2.7 mg/dl (2.5-4.9); Potassium 3.4 mmol/L (3.5-5.1); Total Protein 6.3 gm/dl (6.0-8.3)
[2025-01-08 06:15] LABS: INR 1.1 (0.9-1.1)
[2025-01-08] MEDS: POTASSIUM CHLORIDE CRTAB 20 MEQ TABCR PO SCH (08:15)
[2025-01-08] MEDS: buPROPion XL 300 MG TABCR PO SCH (08:16)
[2025-01-08] MEDS: VENLAFAXINE HCL XR 75 MG CAPXR PO SCH (08:16)
[2025-01-08] MEDS: FOLIC ACID 1 MG TAB PO SCH (08:17)
[2025-01-08] MEDS: THIAMINE HCL 100 MG TAB PO SCH (08:17)
[2025-01-08] MEDS: LEVOTHYROXINE SODIUM 150 MCG TABLET PO SCH (08:17)
[2025-01-08] MEDS: MULTIVITAMIN TAB PO SCH (08:18)
[2025-01-08] MEDS: PROPRANOLOL HCL 10 MG TAB PO SCH (08:18)
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
--- NOTE | 2025-01-08 13:44 | Hospitalist Progress Note ---
Date of Service January 08, 2025 Assessment & Plan (1) Alcohol abuse: Plan: -nausea/vomiting in setting of alcohol use, possible ulceration given stomach pain -patient not interested in dual placement for depression and alcohol use, would like outpatient treatment only Plan: -start protonix 40 bid -zofran for nausea/vomiting -LR at 80cc/hr for 12 hours -start thiamine, folic acid supplementation -f/u ectasy reflex lab -AWSS, lower risk given only drinking for one week from relapse (2) Nausea & vomiting: Plan: -see above (3) Acute UTI: Plan: -UA positive fot nitrates, does have some burning with urination Plan: -continue ceftriaxone x5 days (4) Transaminitis: Plan: -in setting of acute alcohol use and likely cirrhosis Plan: -f/u in liver clinic outpatient (5) Anxiety: Plan: -patient had suicidial ideation without plan -now does not have suicidal ideation Plan: -appreciate psych consult -stop 1 to 1 sitter per psychiatry -stop wellbutrin as can make anxiety worse Plan I spent a total of 50 minutes in direct patient care, including [id number] time with the patient and/or family, reviewing medical records, ordering and reviewing diagnostic tests, and coordinating care with other healthcare providers. This time includes: history taking, physical examination, medical decision making, counseling, ECG interpretation, imaging interpretation, lab interpretation, orders, and education, excluding time spent in the performance of separately billed services. Admission and Anticipated Discharge Date Admission Date: January 07, 2025 Subjective Patient seen and examined at bedside. Patient feeling sick today. States she started drinking 1 week ago, relapsed. States she has drank frequently since. Started drinking again from anxiety regarding work at home. States she has no intention of harming herself at this time. Review of Systems Review of Systems: CONSTITUTIONAL: malaise, fatigue EYES: Patient denies any visual symptoms. EARS, NOSE, AND THROAT: No difficulties with hearing. No symptoms of rhinitis or sore throat. CARDIOVASCULAR: Patient denies chest pains, palpitations, orthopnea and paroxysmal nocturnal dyspnea. RESPIRATORY: No dyspnea on exertion, no wheezing or cough. GI: No nausea, vomiting, diarrhea, constipation, abdominal pain, hematochezia or melena. : No urinary hesitancy or dribbling. No nocturia or urinary frequency. No abnormal urethral discharge. MUSCULOSKELETAL: No myalgias or arthralgias. NEUROLOGIC: No chronic headaches, no seizures. Patient denies numbness, tingling or weakness. PSYCHIATRIC: Patient denies problems with mood disturbance. No problems with anxiety. ENDOCRINE: No excessive urination or excessive thirst. DERMATOLOGIC: Patient denies any rashes or skin changes. Physical Exam Physical Exam: Gen: A&O 3 NAD, appears uncomfortable, fatigued HEENT: NCAT, EOMI, not icteric. External ears normal. No rhinorrhea. Moist mucous membranes. Neck: Supple, full range of motion, no observable masses, No meningeal sign. Lungs: No Respiratory distress. CV: RRR, no edema. Abdomen: Soft, nondistended, No rebound tenderness. MSK: No joint swelling, no redness. Skin: No rashes, petechiae, lesions. Normal color per patient. Neuro: Normal Gait, Grossly intact. no tremor noted Psych: Appropriate for situation. Results & Data Results & Data Vital Signs (Past 12 Hours) Vital Signs Temp Pulse Pulse Pulse Resp BP Pulse Ox 01/08/25 11:40 01/08/25 11:38 36.6 C 71 16 132/90 100 01/08/25 06:44 90 01/08/25 05:00 100 H 16 116/75 95 O2 Del Method 01/08/25 11:40 Room Air 01/08/25 11:38 Room Air 01/08/25 06:44 01/08/25 05:00 Room Air Laboratory Results -personally reviewed, elevated LFTs in setting of acute alcohol use and likely cirrhosis, creatinine stable, tox screen positive for ectasy however on trazadone Medications Administered Folic Acid (Folic Acid 1 Mg Tab) 1 mg PO QAM SARAH Stop: 02/07/25 08:59 Last Admin: 01/08/25 08:17 Dose: 1 mg Documented By: MEGHA Gabapentin (Gabapentin 300 Mg Cap) 300 mg PO HS SARAH Stop: 02/06/25 20:59 Last Admin: 01/07/25 21:47 Dose: 300 mg Documented By: JOSS Heparin Sodium (Porcine) (Heparin Sod 5,000 Unit/0.5 Ml Vial) 5,000 units SQ Q12 SARAH Stop: 02/06/25 20:59 Last Admin: 01/08/25 08:18 Dose: Not Given Documented By: Admin: 01/07/25 20:39 Dose: 5,000 units Documented By: JOSS Hydroxyzine HCl (Hydroxyzine Hcl 25 Mg Tab) 50 mg PO TID PRN PRN Reason: Anxiety Stop: 02/06/25 20:16 Last Admin: 01/08/25 05:42 Dose: 50 mg Documented By: PRETTY Levothyroxine Sodium (Levothyroxine Sodium 150 Mcg Tablet) 150 mcg PO DAILYBB [facility] Stop: 02/07/25 06:29 Last Admin: 01/08/25 08:17 Dose: 150 mcg Documented By: MEGHA Lorazepam (Lorazepam 1 Mg Tab) 1 mg PO UD PRN; Protocol PRN Reason: EtOH Withdrawal AWSS Score 6,7 Stop: 02/06/25 20:16 Last Admin: 01/08/25 09:31 Dose: 1 mg Documented By: Admin: 01/07/25 20:39 Dose: 1 mg Documented By: JOSS Multivitamins (Multivitamin Tab) [facility] [place] Stop: 02/07/25 08:59 Last Admin: 01/08/25 08:18 Dose: 1 tab Documented By: MEGHA Potassium Chloride (Potassium Chloride Crtab 20 Meq Tabcr) 40 meq [facility] [place] Stop: 02/07/25 08:59 Last Admin: 01/08/25 08:15 Dose: 40 meq Documented By: MEGHA Propranolol HCl (Propranolol Hcl 10 Mg Tab) 10 mg PO DAILY [facility] Stop: 02/07/25 08:59 Last Admin: 01/08/25 08:18 Dose: 10 mg Documented By: MEGHA Thiamine HCl (Thiamine Hcl 100 Mg Tab) 100 [facility] [place] Stop: 02/07/25 08:59 Last Admin: 01/08/25 08:17 Dose: 100 mg Documented By: MEGHA Venlafaxine HCl (Venlafaxine Hcl Xr 75 Mg Capxr) 225 mg PO DAILY [facility] Stop: 02/07/25 08:59 Last Admin: 01/08/25 08:16 Dose: 225 mg Documented By: MEGHA
[2025-01-08] MEDS: LACTATED RINGER'S 1,000 ML IV SCH (14:25)
[2025-01-08] MEDS: cefTRIAXone SODIUM 1,000 MG/50 ML BAG IV SCH (17:24)
[2025-01-08] MEDS: traZODone HCL 50 MG TAB PO PRN (21:26)
[2025-01-08] MEDS: PANTOprazole 40 MG TAB PO SCH (21:30)
[2025-01-09 03:42] VITALS: RESP 18
[2025-01-09 07:44] VITALS: BP 126/82; TEMP 98; O2SAT 98
[2025-01-09 11:20] LABS: Albumin Globulin Ratio 1.2 (0.9-2); Albumin Level 3.2 gm/dl (3.4-5.0); BUN Creatinine Ratio 11.1 (10-20); Bilirubin,Total 1.1 mg/dl (0.2-1.0); Creatinine Clr Calc Pharmacy 77.7 ml/min; Globulin 2.6 gm/dl (2.5-4.0); Potassium 4.1 mmol/L (3.5-5.1); Total Protein 5.8 gm/dl (6.0-8.3)
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
[2025-01-09 15:49] VITALS: PULSE 59
--- NOTE | 2025-01-09 23:33 | Electrocardiogram Report ---
Test Reason : Blood Pressure : */* mmHG Vent. Rate : 87 BPM Atrial Rate : 87 BPM P-R Int : 158 ms QRS Dur : 80 ms QT Int : 394 ms P-R-T Axes : 45 2 36 degrees QTcB Int : 474 ms Normal sinus rhythm Normal ECG When compared with ECG of 04-Nov-2024 07:42, No significant change Confirmed by Morgan Garcia ([id number]) on 01/09/2025 11:32:35 PM Referred By: Confirmed By: Morgan Garcia
--- NOTE | 2025-01-09 23:35 | Electrocardiogram Report ---
Test Reason : Blood Pressure : */* mmHG Vent. Rate : 59 BPM Atrial Rate : 59 BPM P-R Int : 166 ms QRS Dur : 80 ms QT Int : 464 ms P-R-T Axes : 41 -10 14 degrees QTcB Int : 459 ms Sinus bradycardia Otherwise normal ECG When compared with ECG of 07-Jan-2025 15:40, No significant change was found Confirmed by Morgan Garcia ([id number] on 01/09/2025 11:34:55 PM Referred By: REFERRED SELF Confirmed By: Morgan Garcia
== END 2025-01-09 18:07 | disposition home or self-care (01) | DRG 897 ==
LOC: ED 14:52 → EDINP 19:15 → SUATTDRO 19:15 → 2W 20:12
DX: E03.9 Hypothyroidism, unspecified; R74.01 Elevation of levels of liver transaminase levels; F32.A Depression, unspecified; Z79.890 Hormone replacement therapy; R45.851 Suicidal ideations; I10 Essential (primary) hypertension; N39.0 Urinary tract infection, site not specified; F10.130 Alcohol abuse with withdrawal, uncomplicated; Y90.8 Blood alcohol level of 240 mg/100 ml or more; F41.9 Anxiety disorder, unspecified; Z79.899 Other long term (current) drug therapy; F10.120 Alcohol abuse with intoxication, uncomplicated; K70.30 Alcoholic cirrhosis of liver without ascites